=== PATIENT | female | born 1930 | race Caucasian/White ===

== ENCOUNTER 2016-06-26 05:45 | Inpatient (IN) | payer MEDICARE, BC ==
[2016-06-26] MEDS ORDERED: Albuterol/Ipratropium 3.0-0.5 MG/3 ML Neb Soln NEB ONE (05:53)
--- NOTE | 2016-06-26 05:55 | EDM.PDOC ---
<Wili Pinon - Last Filed: 06/26/16 07:41> ED HISTORY OF PRESENT ILLNESS - General Chief Complaint: Respiratory Problem Stated Complaint: [facility] Time Seen by Provider: 06/26/16 05:53 - Related Data Allergies/ADRs: Allergies Allergy/AdvReac Type Severity Reaction Status Date / Time celecoxib [From Celebrex] Allergy Cannot Verified 05/12/16 17:01 Remember lovastatin [From Mevacor] Allergy Cannot Verified 05/12/16 17:01 Remember Penicillins Allergy Cannot Verified 05/12/16 17:01 Remember prednisone Allergy Cannot Verified 05/12/16 17:01 Remember Home Meds: Home Meds Albuterol Sulfate 2.5 mg IH BID PRN 05/12/16 [History] Aspirin [Low Dose Aspirin EC] 81 mg PO DAILY 05/12/16 [History] Calcium Carbonate [Calcium] 500 mg PO DAILY 05/12/16 [History] Fluticasone/Salmeterol [Advair 250-50 Diskus] 1 puff IH ASDIRECTED PRN 05/12/16 [History] Lisinopril 40 mg PO DAILY 05/12/16 [History] Multivitamin [Multi-Vitamin Daily] 1 each PO DAILY 05/12/16 [History] Potassium Chloride 40 meq PO DAILY 05/12/16 [History] Simvastatin [Zocor] 20 mg PO BEDTIME 05/12/16 [History] Triamterene/Hydrochlorothiazid [Triamterene-HCTZ 37.5-25 MG] 0.5 each PO DAILY 05/12/16 [History] Vit A/Vit C/Vit E/Zinc/Copper [Preservision] 1 each PO DAILY 05/12/16 [History] amLODIPine [Norvasc] 2.5 mg PO DAILY 05/12/16 [History] Cyanocobalamin (Vitamin B-12) [Vitamin B-12] 0.5 tab PO DAILY 06/26/16 [History] Course - Vital Signs Last Recorded V/S: Last Vital Signs Temp 37.2 C 06/28/16 03:37 Pulse 78 06/28/16 03:37 Resp 18 06/28/16 03:37 BP 138/64 06/28/16 03:37 Pulse Ox 99 06/28/16 05:00 - Orders/Labs/Meds Orders: Medication Orders Acetaminophen (Tylenol) 650 mg PO Q4H PRN PRN Reason: Pain (Mild 1-3)/fever Acetaminophen/Hydrocodone Bitart ([place] 325-5 Mg) 1 tab PO Q4H PRN PRN Reason: Pain (moderate 4-6) Albuterol (Proventil Neb Soln) 2.5 mg NEB Q4H PRN PRN Reason: Shortness of Breath Albuterol/Ipratropium (Duoneb 3.0-0.5 Mg/3 Ml) 3 ml NEB QIDRT [facility] Last Admin: 06/28/16 05:00 Dose: 3 ml Admin: 06/27/16 20:19 Dose: 3 ml Admin: 06/27/16 16:07 Dose: 3 ml Admin: 06/27/16 09:23 Dose: 3 ml Admin: 06/27/16 06:26 Dose: 3 ml Admin: 06/26/16 20:05 Dose: 3 ml Admin: 06/26/16 15:05 Dose: 3 ml Admin: 06/26/16 10:22 Dose: 3 ml Amlodipine Besylate (Norvasc) 2.5 mg PO DAILY [facility] Last Admin: 06/27/16 09:57 Dose: 2.5 mg Admin: 06/26/16 11:12 Dose: 2.5 mg Aspirin (Halfprin) 81 mg PO DAILY [facility] Last Admin: 06/27/16 09:58 Dose: 81 mg Budesonide (Pulmicort) 0.5 mg NEB BID [facility] Last Admin: 06/27/16 20:19 Dose: 0.5 mg Admin: 06/27/16 09:23 Dose: 0.5 mg Admin: 06/26/16 20:05 Dose: 0.5 mg Admin: 06/26/16 10:22 Dose: 0.5 mg Calcium Carbonate/Glycine (Calcium Carbonate) 600 mg PO DAILY [facility] Last Admin: 06/27/16 09:58 Dose: 600 mg Cyanocobalamin (Vitamin B12) 1,000 mcg PO DAILY [facility] Last Admin: 06/27/16 09:58 Dose: 1,000 mcg Docusate Sodium (Colace) 100 mg PO BID PRN PRN Reason: Constipation Famotidine (Pepcid) 20 mg PO BID [facility] Last Admin: 06/27/16 22:44 Dose: 20 mg Admin: 06/27/16 09:57 Dose: 20 mg Admin: 06/26/16 20:47 Dose: 20 mg Ferrous Sulfate (Ferrous Sulfate) 325 mg PO DAILY [facility] Last Admin: 06/27/16 09:57 Dose: 325 mg Admin: 06/26/16 14:27 Dose: 325 mg Glucose Oxid/Lactoperoxid/Muramidas (Biotene Oralbalance Gel) 0 gm MUCMEM Q4H [facility] Last Admin: 06/28/16 07:01 Dose: Not Given Admin: 06/28/16 02:02 Dose: 1 applic Admin: 06/27/16 22:53 Dose: 1 applic Admin: 06/27/16 17:20 Dose: 1 applic Admin: 06/27/16 13:15 Dose: 1 applic Admin: 06/27/16 10:01 Dose: 1 applic Sodium Chloride (Normal Saline) 1,000 mls @ 75 mls/hr IV ASDIRECTED [facility] Last Admin: 06/28/16 07:00 Dose: 75 mls/hr Infusion: 06/28/16 06:52 Dose: 75 mls/hr Admin: 06/27/16 17:32 Dose: 75 mls/hr Infusion: 06/27/16 17:32 Dose: 75 mls/hr Admin: 06/27/16 04:18 Dose: 75 mls/hr Infusion: 06/27/16 04:18 Dose: 75 mls/hr Admin: 06/26/16 19:18 Dose: 75 mls/hr Infusion: 06/26/16 19:18 Dose: 75 mls/hr Admin: 06/26/16 05:58 Dose: 75 mls/hr Levofloxacin/Dextrose 750 mg/ (Premix) 150 mls @ 100 mls/hr IV Q48H [facility] Last Admin: 06/26/16 11:14 Dose: 100 mls/hr Azithromycin 500 mg/ Sodium (Chloride) 250 mls @ 250 mls/hr IV Q24H [facility] Last Admin: 06/27/16 13:19 Dose: 250 mls/hr Infusion: 06/26/16 13:49 Dose: 250 mls/hr Admin: 06/26/16 12:49 Dose: 250 mls/hr Lisinopril (Prinivil) 40 mg PO DAILY [facility] Last Admin: 06/27/16 09:58 Dose: 40 mg Admin: 06/26/16 12:48 Dose: 40 mg Magnesium Hydroxide (Milk Of Magnesia) 30 ml PO Q12H PRN PRN Reason: Constipation Magnesium Sulfate (Pharmacy To Dose - Magnesium Replacement) 1 dose .XX ASDIRECTED [facility] Methylprednisolone Sodium Succinate (Solu-Medrol) 80 mg IVPUSH Q12H [facility] Last Admin: 06/28/16 01:53 Dose: 80 mg Admin: 06/27/16 13:14 Dose: 80 mg Admin: 06/27/16 00:57 Dose: 80 mg Admin: 06/26/16 12:48 Dose: 80 mg Ondansetron HCl (Zofran Odt) 4 mg PO Q4H PRN PRN Reason: nausea, able to take PO Triamterene/Hydrochlorothiazid 37.5/25 Mg Tab 0 each PO DAILY [facility] Last Admin: 06/27/16 09:59 Dose: 1 each Admin: 06/26/16 12:52 Dose: 1 each Polyethylene Glycol (Miralax) 17 gm PO DAILY PRN PRN Reason: Constipation Potassium Chloride (Klor-Con M20) 40 meq PO DAILY [facility] Last Admin: 06/27/16 09:57 Dose: 40 meq Admin: 06/26/16 12:48 Dose: 40 meq Potassium Chloride (Pharmacy To Dose - Potassium Replacement) 1 dose .XX ASDIRECTED [facility] Saccharomyces Boulardii (Florastor) 250 mg PO BID [facility] Last Admin: 06/27/16 22:44 Dose: 250 mg Admin: 06/27/16 09:56 Dose: 250 mg Admin: 06/26/16 20:47 Dose: 250 mg Simvastatin (Zocor) 20 mg PO BEDTIME [facility] Last Admin: 06/27/16 22:45 Dose: 20 mg Admin: 06/26/16 20:47 Dose: 20 mg Temazepam (Restoril) 15 mg PO BEDTIME PRN PRN Reason: Sleep Tolterodine Tartrate (Detrol) 2 mg PO BID [facility] Last Admin: 06/27/16 22:44 Dose: 2 mg Admin: 06/27/16 09:58 Dose: 2 mg Labs: Laboratory Tests 06/26/16 06/26/16 06/26/16 Range/Units 05:56 06:15 06:15 WBC 4.74 (3.98-10.04) K/mm3 RBC 3.33 L (3.98-5.22) M/mm3 Hgb 10.8 L (11.2-15.7) gm/L Hct 33.7 L (34.1-44.9) % MCV 101.2 H (79.4-94.8) fl MCH 32.4 H (25.6-32.2) pg MCHC 32.0 L (32.2-35.5) g/dl RDW Std Deviation 44.9 (36.4-46.3) fL Plt Count 119 L (182-369) K/mm3 MPV 10.4 (9.4-12.3) fl Neutrophils % (Manual) 48 (40-60) % Band Neutrophils % 1 (0-10) % Lymphocytes % (Manual) 29 (20-40) % Atypical Lymphs % 0 % Monocytes % (Manual) 11 H (2-10) % Eosinophils % (Manual) 11 H (0.7-5.8) % Basophils % (Manual) 0 L (0.1-1.2) Platelet Estimate Adequate Poikilocytosis 1+ slight Anisocytosis 2+ moderate RBC Morph Comment Not Reportable PT (8.0-13.0) SECONDS INR Puncture Site Rt radial ABG pH 7.41 (7.35-7.45) ABG pCO2 51.6 H (35.0-45.0) mmHg ABG pO2 63.0 L (80.0-100.0) mmHg ABG HCO3 31.9 H (22.0-26.0) meq/L ABG O2 Saturation 91.7 L (96.0-97.0) % ABG Base Excess 6.6 H (-2-2.0) Navdeep Test Positive A-a Gradient 61 mmHg O2 Delivery Device Nasal cannula Oxygen Flow Rate 2.0 FiO2 28.00 (21.00-100.00) % Sodium 131 L (136-145) mEq/L Potassium 4.2 (3.5-5.1) mEq/L Chloride 94 L (98-107) mEq/L Carbon Dioxide 30 (21-32) mEq/L Anion Gap 11.2 (5-15) BUN 16 (7-18) mg/dL Creatinine 0.9 (0.55-1.02) mg/dL Est Cr Clr Drug Dosing 32.40 mL/min Estimated GFR (MDRD) 60 (>60) mL/min BUN/Creatinine Ratio 17.8 (14-18) Glucose 110 (83-115) mg/dL Calcium 9.4 (8.5-10.1) mg/dL Magnesium 1.7 L (1.8-2.4) mg/dl Total Bilirubin 0.3 (0.2-1.0) mg/dL AST 30 (15-37) U/L ALT 20 (14-59) U/L Alkaline Phosphatase 67 (46-116) U/L CK-MB (CK-2) 2.6 (0-3.6) ng/ml Troponin I < 0.017 (0.00-0.056) ng/mL C-Reactive Protein < 0.2 (<1.0) mg/dL B-Natriuretic Peptide (0-100) pg/mL Total Protein 7.2 (6.4-8.2) g/dl Albumin 3.8 (3.4-5.0) g/dl Globulin 3.4 gm/dL Albumin/Globulin Ratio 1.1 (1-2) Urine Color (Yellow) Urine Appearance (Clear) Urine pH (5.0-8.0) Ur Specific [place] (1.005-1.030) Urine Protein (Negative) Urine Glucose (UA) (Negative) Urine Ketones (Negative) Urine Occult Blood (Negative) Urine Nitrite (Negative) Urine Bilirubin (Negative) Urine Urobilinogen (0.2-1.0) Ur Leukocyte Esterase (Negative) Urine RBC (0-5) /hpf Urine WBC (0-5) /hpf Ur Squamous Epith Cells (0-5) /hpf Amorphous Sediment (NOT SEEN) /hpf Urine Bacteria (FEW) /hpf Urine Mucus (FEW) /hpf 06/26/16 06/26/16 06/26/16 Range/Units 06:15 06:27 07:25 WBC (3.98-10.04) K/mm3 RBC (3.98-5.22) M/mm3 Hgb (11.2-15.7) gm/L Hct (34.1-44.9) % MCV (79.4-94.8) fl MCH (25.6-32.2) pg MCHC (32.2-35.5) g/dl RDW Std Deviation (36.4-46.3) fL Plt Count (182-369) K/mm3 MPV (9.4-12.3) fl Neutrophils % (Manual) (40-60) % Band Neutrophils % (0-10) % Lymphocytes % (Manual) (20-40) % Atypical Lymphs % % Monocytes % (Manual) (2-10) % Eosinophils % (Manual) (0.7-5.8) % Basophils % (Manual) (0.1-1.2) Platelet Estimate Poikilocytosis Anisocytosis RBC Morph Comment PT 10.7 (8.0-13.0) SECONDS INR 0.98 Puncture Site ABG pH (7.35-7.45) ABG pCO2 (35.0-45.0) mmHg ABG pO2 (80.0-100.0) mmHg ABG HCO3 (22.0-26.0) meq/L ABG O2 Saturation (96.0-97.0) % ABG Base Excess (-2-2.0) Navdeep Test A-a Gradient mmHg O2 Delivery Device Oxygen Flow Rate FiO2 (21.00-100.00) % Sodium (136-145) mEq/L Potassium (3.5-5.1) mEq/L Chloride (98-107) mEq/L Carbon Dioxide (21-32) mEq/L Anion Gap (5-15) BUN (7-18) mg/dL Creatinine (0.55-1.02) mg/dL Est Cr Clr Drug Dosing mL/min Estimated GFR (MDRD) (>60) mL/min BUN/Creatinine Ratio (14-18) Glucose (83-115) mg/dL Calcium (8.5-10.1) mg/dL Magnesium (1.8-2.4) mg/dl Total Bilirubin (0.2-1.0) mg/dL AST (15-37) U/L ALT (14-59) U/L Alkaline Phosphatase (46-116) U/L CK-MB (CK-2) (0-3.6) ng/ml Troponin I (0.00-0.056) ng/mL C-Reactive Protein (<1.0) mg/dL B-Natriuretic Peptide 79 (0-100) pg/mL Total Protein (6.4-8.2) g/dl Albumin (3.4-5.0) g/dl Globulin gm/dL Albumin/Globulin Ratio (1-2) Urine Color Light yellow (Yellow) Urine Appearance Clear (Clear) Urine pH 7.0 (5.0-8.0) Ur Specific [place] 1.025 (1.005-1.030) Urine Protein 2+ H (Negative) Urine Glucose (UA) Negative (Negative) Urine Ketones Negative (Negative) Urine Occult Blood Negative (Negative) Urine Nitrite Negative (Negative) Urine Bilirubin Negative (Negative) Urine Urobilinogen 0.2 (0.2-1.0) Ur Leukocyte Esterase Trace H (Negative) Urine RBC 0-5 (0-5) /hpf Urine WBC 5-10 H (0-5) /hpf Ur Squamous Epith Cells 0-5 (0-5) /hpf Amorphous Sediment Few H (NOT SEEN) /hpf Urine Bacteria Few (FEW) /hpf Urine Mucus Not seen (FEW) /hpf Meds: Medications Generic Name Dose Route Start Last Admin Trade Name Freq PRN Reason Stop Dose Admin Acetaminophen 650 mg 06/26/16 08:02 Tylenol PO Q4H PRN Pain (Mild 1-3)/fever Acetaminophen/Hydrocodone Bitart 1 tab 06/26/16 08:02 [place] 325-5 Mg PO Q4H PRN Pain (moderate 4-6) Albuterol 2.5 mg 06/27/16 08:47 Proventil Neb Soln NEB Q4H PRN Shortness of Breath Albuterol/Ipratropium 3 ml 06/26/16 10:00 06/28/16 05:00 Duoneb 3.0-0.5 Mg/3 Ml NEB 3 ml QIDRT [facility] Administration Amlodipine Besylate 2.5 mg 06/26/16 11:00 06/27/16 09:57 Norvasc PO 2.5 mg DAILY [facility] Administration Aspirin 81 mg 06/27/16 09:00 06/27/16 09:58 Halfprin PO 81 mg DAILY [facility] Administration Budesonide 0.5 mg 06/26/16 09:00 06/27/16 20:19 Pulmicort NEB 0.5 mg BID [facility] Administration Calcium Carbonate/Glycine 600 mg 06/27/16 09:00 06/27/16 09:58 Calcium Carbonate PO 600 mg DAILY [facility] Administration Cyanocobalamin 1,000 mcg 06/27/16 09:00 06/27/16 09:58 Vitamin B12 PO 1,000 mcg DAILY [facility] Administration Docusate Sodium 100 mg 06/26/16 08:02 Colace PO BID PRN Constipation Famotidine 20 mg 06/26/16 21:00 06/27/16 22:44 Pepcid PO 20 mg BID [facility] Administration Ferrous Sulfate 325 mg 06/26/16 13:45 06/27/16 09:57 Ferrous Sulfate PO 325 mg DAILY [facility] Administration Glucose Oxid/Lactoperoxid/Muramidas 0 gm 06/27/16 09:00 06/28/16 07:01 Biotene Oralbalance Gel MUCMEM Not Given Q4H [facility] Sodium Chloride 1,000 mls @ 75 mls/hr 06/26/16 06:00 06/28/16 07:00 Normal Saline IV 75 mls/hr ASDIRECTED [facility] Administration Levofloxacin/Dextrose 750 mg/ 150 mls @ 100 mls/hr 06/26/16 11:00 06/26/16 11 :14 Premix IV 100 mls/hr Q48H [facility] Administration Azithromycin 500 mg/ Sodium 250 mls @ 250 mls/hr 06/26/16 12:30 06/27/16 13: 19 Chloride IV 250 mls/hr Q24H [facility] Administration Lisinopril 40 mg 06/26/16 11:00 06/27/16 09:58 Prinivil PO 40 mg DAILY [facility] Administration Magnesium Hydroxide 30 ml 06/26/16 08:02 Milk Of Magnesia PO Q12H PRN Constipation Magnesium Sulfate 1 dose 06/26/16 14:45 Pharmacy To Dose - Magnesium Replacement .XX ASDIRECTED [facility] Methylprednisolone Sodium Succinate 80 mg 06/26/16 12:30 06/28/16 01:53 Solu-Medrol IVPUSH 80 mg Q12H [facility] Administration Ondansetron HCl 4 mg 06/26/16 08:02 Zofran Odt PO Q4H PRN nausea, able to take PO Triamterene/ 0 each 06/26/16 11:00 06/27/16 09:59 Hydrochlorothiazid PO 1 each 37.5/25 Mg Tab DAILY [facility] Administration Polyethylene Glycol 17 gm 06/26/16 08:02 Miralax PO DAILY PRN Constipation Potassium Chloride 40 meq 06/26/16 11:00 06/27/16 09:57 Klor-Con M20 PO 40 meq DAILY [facility] Administration Potassium Chloride 1 dose 06/26/16 14:45 Pharmacy To Dose - Potassium Replacement .XX ASDIRECTED [facility] Saccharomyces Boulardii 250 mg 06/26/16 21:00 06/27/16 22:44 Florastor PO 250 mg BID [facility] Administration Simvastatin 20 mg 06/26/16 21:00 06/27/16 22:45 Zocor PO 20 mg BEDTIME [facility] Administration Temazepam 15 mg 06/26/16 08:02 Restoril PO BEDTIME PRN Sleep Tolterodine Tartrate 2 mg 06/27/16 09:00 06/27/16 22:44 Detrol PO 2 mg BID [facility] Administration Discontinued Medications Generic Name Dose Route Start Last Admin Trade Name Freq PRN Reason Stop Dose Admin Albuterol 7.5 mg 06/26/16 06:36 06/26/16 07:05 Proventil NEB 06/26/16 06:37 Not Given ONETIME ONE Albuterol/Ipratropium 3 ml 06/26/16 05:53 06/26/16 06:04 Duoneb 3.0-0.5 Mg/3 Ml NEB 06/26/16 05:54 3 ml ONETIME ONE Administration Albuterol/Ipratropium 3 ml 06/26/16 08:00 06/26/16 08:51 Duoneb 3.0-0.5 Mg/3 Ml NEB Not Given Q4H [facility] Sodium Chloride 250 mls @ 999 mls/hr 06/26/16 11:00 06/26/16 16:14 Normal Saline IV 06/27/16 11:16 999 mls/hr ASDIRECTED [facility] Administration Magnesium Sulfate 2 gm/ Premix 50 mls @ 25 mls/hr 06/26/16 14:42 06/26/16 16: 05 IV 06/26/16 16:41 25 mls/hr ONETIME ONE Administration Iopamidol 60 ml 06/26/16 11:02 06/26/16 11:51 Isovue-300 (61%) IVPUSH 06/26/16 11:03 Not Given ONETIME ONE Iopamidol 60 ml 06/26/16 11:03 06/26/16 14:40 Isovue-370 (76%) IVPUSH 06/26/16 11:04 60 ml ONETIME ONE Administration Sodium Chloride 10 ml 06/26/16 11:02 06/26/16 14:41 Saline Flush FLUSH 06/26/16 11:03 10 ml ONETIME ONE Administration - Re-Assessments/Exams Free Text/Narrative Re-Assessment/Exam: 06/26/16 07:41 Dr García accepted the patient and TRACY Mcdonnell came to see the patient and start the admission. Departure - Departure Time of Disposition: 07:50 Disposition: Admitted As Inpatient 66 Condition: poor Clinical Impression: Acute exacerbation of chronic obstructive pulmonary disease (COPD), Hyponatremia, Hypoxia <Abhijeet Dumont - Last Filed: 06/28/16 07:07> ED HISTORY OF PRESENT ILLNESS - General Source of Information: Reports: Patient, EMS, EMS notes reviewed History Limitations: Reports: No limitations - History of Present Illness INITIAL COMMENTS - FREE TEXT/NARRATIVE: 85-year-old female arrives in the ED per [place] [facility] were summoned to her home do to increasing troubles breathing. Patient has known right sided lung cancer with last chemotherapy given in January of 2016. On last review May 12 of this year was felt she had recurrence of right-sided lung cancer. He has had followup with oncology. She reports gradually increasing dyspnea with wheeze over the last week to 10 days. She this limits her mobility extremely. She spends most the time in an easy chair. She is oxygen dependent at 2.5-3 liters per minute at all times. Has a cough but not bringing up any phlegm. No associated fever or chills. Para medics relate O2 sats was 76% on arrival.she was sitting at the door dressed waiting for them. She was not on oxygen at that time. She was placed on a nonrebreather mask for a period of time. She was given IV Solu-Medrol 125 mg en route and received DuoNeb treatment. She has a nebulizer that she uses twice daily at home. Is not sure persist albuterol or DuoNeb that she uses. Appetite remains poor and she continues to lose weight. Has a Port-A-Cath left upper anterior chest. Has marked kyphosis of the thoracic spine with a restrictive lung component to her disease process as well as severe COPD. On initial assessment she is able to provide history in 3 or 4 word sentances at atime. Symptom Onset Date: 06/19/16 (usually worsening dyspnea and shortness of breath over the last week or 10 days.) Timing/Duration: Reports: Day(s):, Getting worse Severity: moderate Location, General: Reports: chest (short of breath with wheezing and cough. Worsens on minimal exertion.), generalized (underlying severe weakness.) Quality: Reports: Other (dyspnea with wheezing.) Improves with: Reports: Medication (she thinks that the nebulizer possibly help a little bit.), Other (she is on oxygen 2.5 liters continuously.) Worsens with: Reports: Movement Context, General: Denies: Activity, Exercise, Lifting, Sick contact, Trauma, Other Associated Symptoms (General): Reports: cough, loss of appetite, malaise, shortness of breath, weakness, other (has very poor appetite. Feels fall that time. This is likely due to aerophagia since she works hard to breathe.). 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: Hematologic History: Reports: Anemia, B12 deficiency Oncologic (Cancer) History: Reports: Lung - Infectious Disease History Infectious Disease History: Reports: Chicken pox, Measles, Mumps - Past Surgical History HEENT Surgical History: Reports: Tonsillectomy GI Surgical History: Reports: Cholecystectomy, Colonoscopy, EGD Female Surgical History: Reports: Hysterectomy Social & Family History - Tobacco Use Smoking Status *Q: Former Smoker Years of Tobacco use: 69 Packs/Tins Daily: 0.5 - Caffeine Use Caffeine Use: Reports: Coffee - Alcohol Use Days Per Week of Alcohol Use: 7 Number of Drinks Per Day: 1 Total Drinks Per Week: 7 - Recreational Drug Use Recreational Drug Use: No - Living Situation & Occupation Living situation: Reports: Occupation: retired ED ROS GENERAL - Review of Systems Review Of Systems: See Below Constitutional: Reports: malaise, weakness, fatigue, decreased appetite, weight loss. Denies: fever, chills, night sweats, diaphoresis HEENT: Reports: Glasses, Other (dry throat) Respiratory: Reports: shortness of breath, wheezing (chronicchronic), cough ( cough without much sputum production.), sputum. Denies: pleuritic chest pain, other Cardiovascular: Reports: Blood pressure problem, Dyspnea on exertion ( chronically), Lightheadedness (occasionally), Orthopnea. Denies: Chest pain, Claudication (chronic hypertension), Edema, Palpitations, PND Endocrine: Reports: fatigue GI/Abdominal: Reports: Decreased appetite. Denies: Abdominal pain, Constipation , Nausea, Vomiting : Reports: frequency, incontinence (with both urge and stress component.), urgency, other (reports she's up to the washroom about every 45-90 minutes all night long.) Musculoskeletal: Reports: neck pain, shoulder pain, back pain, joint pain ( knees and hips as well.) Skin: Reports: bruising (is is easily.) Neurological: Reports: dizziness, difficulty walking, weakness. Denies: headache (occasionally), numbness, seizure, syncope, tingling, tremors, trouble speaking (22 legs to hardly old holding her up and shortness of breath.), change in speech, gait disturbance Psychiatric: Reports: No symptoms Hematologic/Lymphatic: Reports: anemia ED EXAM, GENERAL - Physical Exam Exam: See Below Exam Limited By: Respiratory distress (speaks in only 1-3 word sentences. Audible he wheezing.) General Appearance: moderate distress, cachetic (has lost a lot of weight since I seen her last 6 weeks ago. All ribs are easily visible.) Eye Exam: bilateral eye: normal inspection (no jaundice.) Throat/Mouth: Other Head: atraumatic (tongue is dry and coated. No oral mucosal lesions.), normocephalic Neck: normal inspection, tender midline (no supraclavicular or infraclavicular adenopathy noted.), other. No: full range of motion, carotid bruit (throughout the mid and lower cervical spine.), lymphadenopathy (L), lymphadenopathy (R) Respiratory/Chest: respiratory distress (marked tachypnea at rest 24-26 per minute.), decreased breath sounds (diminished breath sounds to the posterior 25 % the lung diop.), rhonchi ([place] anterior lobes bilaterally.), wheezing ( Bolognese in throughout all lung diop.), accessory muscle use (mild to moderate.) Cardiovascular: regular rate, rhythm, no edema, no gallop, no murmur, no rub, other (note heart sounds are difficult to hear tutus generalized audible wheezing.). No: normal peripheral pulses Peripheral Pulses: 1+: posterior tibial (L), posterior tibial (R), dorsalis pedis (L), dorsalis pedis (R) GI/Abdominal: normal bowel sounds, soft, distended (tendon in the upper abdomen with tympany to percussion compatible with aerophagia. No masses palpable) Back Exam: decreased range of motion, vertebral tenderness (throughout the lumbar spine.), other (moderate kyphosis thoracic spine contributing to restrictive lung disease). No: full range of motion, CVA tenderness (L), CVA tenderness (R) Extremities: no pedal edema, slow capillary refill, other (marked wasting of the lower chest remedied musculature.). No: pedal edema, leg pain Neurological: alert, no motor/sensory deficits (moves all limbs.), confused ( used to be a little confused at times. May be height 22 hypercapnia.). 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 Q waves leads 3 and aVF compatible with old inferior wall myocardial infarction.) ST-T: normal QT: prolonged (family prolonged period) Comparison: no change Course - Vital Signs Last Recorded V/S: Last Vital Signs Temp 37.2 C 06/28/16 03:37 Pulse 78 06/28/16 03:37 Resp 18 06/28/16 03:37 BP 138/64 06/28/16 03:37 Pulse Ox 99 06/28/16 05:00 - Orders/Labs/Meds Orders: Medication Orders Acetaminophen (Tylenol) 650 mg PO Q4H PRN PRN Reason: Pain (Mild 1-3)/fever Acetaminophen/Hydrocodone Bitart ([place] 325-5 Mg) 1 tab PO Q4H PRN PRN Reason: Pain (moderate 4-6) Albuterol (Proventil Neb Soln) 2.5 mg NEB Q4H PRN PRN Reason: Shortness of Breath Albuterol/Ipratropium (Duoneb 3.0-0.5 Mg/3 Ml) 3 ml NEB QIDRT [facility] Last Admin: 06/28/16 05:00 Dose: 3 ml Admin: 06/27/16 20:19 Dose: 3 ml Admin: 06/27/16 16:07 Dose: 3 ml Admin: 06/27/16 09:23 Dose: 3 ml Admin: 06/27/16 06:26 Dose: 3 ml Admin: 06/26/16 20:05 Dose: 3 ml Admin: 06/26/16 15:05 Dose: 3 ml Admin: 06/26/16 10:22 Dose: 3 ml Amlodipine Besylate (Norvasc) 2.5 mg PO DAILY [facility] Last Admin: 06/27/16 09:57 Dose: 2.5 mg Admin: 06/26/16 11:12 Dose: 2.5 mg Aspirin (Halfprin) 81 mg PO DAILY [facility] Last Admin: 06/27/16 09:58 Dose: 81 mg Budesonide (Pulmicort) 0.5 mg NEB BID [facility] Last Admin: 06/27/16 20:19 Dose: 0.5 mg Admin: 06/27/16 09:23 Dose: 0.5 mg Admin: 06/26/16 20:05 Dose: 0.5 mg Admin: 06/26/16 10:22 Dose: 0.5 mg Calcium Carbonate/Glycine (Calcium Carbonate) 600 mg PO DAILY [facility] Last Admin: 06/27/16 09:58 Dose: 600 mg Cyanocobalamin (Vitamin B12) 1,000 mcg PO DAILY [facility] Last Admin: 06/27/16 09:58 Dose: 1,000 mcg Docusate Sodium (Colace) 100 mg PO BID PRN PRN Reason: Constipation Famotidine (Pepcid) 20 mg PO BID [facility] Last Admin: 06/27/16 22:44 Dose: 20 mg Admin: 06/27/16 09:57 Dose: 20 mg Admin: 06/26/16 20:47 Dose: 20 mg Ferrous Sulfate (Ferrous Sulfate) 325 mg PO DAILY [facility] Last Admin: 06/27/16 09:57 Dose: 325 mg Admin: 06/26/16 14:27 Dose: 325 mg Glucose Oxid/Lactoperoxid/Muramidas (Biotene Oralbalance Gel) 0 gm MUCMEM Q4H [facility] Last Admin: 06/28/16 07:01 Dose: Not Given Admin: 06/28/16 02:02 Dose: 1 applic Admin: 06/27/16 22:53 Dose: 1 applic Admin: 06/27/16 17:20 Dose: 1 applic Admin: 06/27/16 13:15 Dose: 1 applic Admin: 06/27/16 10:01 Dose: 1 applic Sodium Chloride (Normal Saline) 1,000 mls @ 75 mls/hr IV ASDIRECTED [facility] Last Admin: 06/28/16 07:00 Dose: 75 mls/hr Infusion: 06/28/16 06:52 Dose: 75 mls/hr Admin: 06/27/16 17:32 Dose: 75 mls/hr Infusion: 06/27/16 17:32 Dose: 75 mls/hr Admin: 06/27/16 04:18 Dose: 75 mls/hr Infusion: 06/27/16 04:18 Dose: 75 mls/hr Admin: 06/26/16 19:18 Dose: 75 mls/hr Infusion: 06/26/16 19:18 Dose: 75 mls/hr Admin: 06/26/16 05:58 Dose: 75 mls/hr Levofloxacin/Dextrose 750 mg/ (Premix) 150 mls @ 100 mls/hr IV Q48H [facility] Last Admin: 06/26/16 11:14 Dose: 100 mls/hr Azithromycin 500 mg/ Sodium (Chloride) 250 mls @ 250 mls/hr IV Q24H [facility] Last Admin: 06/27/16 13:19 Dose: 250 mls/hr Infusion: 06/26/16 13:49 Dose: 250 mls/hr Admin: 06/26/16 12:49 Dose: 250 mls/hr Lisinopril (Prinivil) 40 mg PO DAILY [facility] Last Admin: 06/27/16 09:58 Dose: 40 mg Admin: 06/26/16 12:48 Dose: 40 mg Magnesium Hydroxide (Milk Of Magnesia) 30 ml PO Q12H PRN PRN Reason: Constipation Magnesium Sulfate (Pharmacy To Dose - Magnesium Replacement) 1 dose .XX ASDIRECTED [facility] Methylprednisolone Sodium Succinate (Solu-Medrol) 80 mg IVPUSH Q12H [facility] Last Admin: 06/28/16 01:53 Dose: 80 mg Admin: 06/27/16 13:14 Dose: 80 mg Admin: 06/27/16 00:57 Dose: 80 mg Admin: 06/26/16 12:48 Dose: 80 mg Ondansetron HCl (Zofran Odt) 4 mg PO Q4H PRN PRN Reason: nausea, able to take PO Triamterene/Hydrochlorothiazid 37.5/25 Mg Tab 0 each PO DAILY [facility] Last Admin: 06/27/16 09:59 Dose: 1 each Admin: 06/26/16 12:52 Dose: 1 each Polyethylene Glycol (Miralax) 17 gm PO DAILY PRN PRN Reason: Constipation Potassium Chloride (Klor-Con M20) 40 meq PO DAILY [facility] Last Admin: 06/27/16 09:57 Dose: 40 meq Admin: 06/26/16 12:48 Dose: 40 meq Potassium Chloride (Pharmacy To Dose - Potassium Replacement) 1 dose .XX ASDIRECTED [facility] Saccharomyces Boulardii (Florastor) 250 mg PO BID [facility] Last Admin: 06/27/16 22:44 Dose: 250 mg Admin: 06/27/16 09:56 Dose: 250 mg Admin: 06/26/16 20:47 Dose: 250 mg Simvastatin (Zocor) 20 mg PO BEDTIME [facility] Last Admin: 06/27/16 22:45 Dose: 20 mg Admin: 06/26/16 20:47 Dose: 20 mg Temazepam (Restoril) 15 mg PO BEDTIME PRN PRN Reason: Sleep Tolterodine Tartrate (Detrol) 2 mg PO BID [facility] Last Admin: 06/27/16 22:44 Dose: 2 mg Admin: 06/27/16 09:58 Dose: 2 mg Labs: Laboratory Tests 06/26/16 06/26/16 06/26/16 Range/Units 05:56 06:15 06:15 WBC 4.74 (3.98-10.04) K/mm3 RBC 3.33 L (3.98-5.22) M/mm3 Hgb 10.8 L (11.2-15.7) gm/L Hct 33.7 L (34.1-44.9) % MCV 101.2 H (79.4-94.8) fl MCH 32.4 H (25.6-32.2) pg MCHC 32.0 L (32.2-35.5) g/dl RDW Std Deviation 44.9 (36.4-46.3) fL Plt Count 119 L (182-369) K/mm3 MPV 10.4 (9.4-12.3) fl Neutrophils % (Manual) 48 (40-60) % Band Neutrophils % 1 (0-10) % Lymphocytes % (Manual) 29 (20-40) % Atypical Lymphs % 0 % Monocytes % (Manual) 11 H (2-10) % Eosinophils % (Manual) 11 H (0.7-5.8) % Basophils % (Manual) 0 L (0.1-1.2) Platelet Estimate Adequate Poikilocytosis 1+ slight Anisocytosis 2+ moderate RBC Morph Comment Not Reportable PT (8.0-13.0) SECONDS INR Puncture Site Rt radial ABG pH 7.41 (7.35-7.45) ABG pCO2 51.6 H (35.0-45.0) mmHg ABG pO2 63.0 L (80.0-100.0) mmHg ABG HCO3 31.9 H (22.0-26.0) meq/L ABG O2 Saturation 91.7 L (96.0-97.0) % ABG Base Excess 6.6 H (-2-2.0) Navdeep Test Positive A-a Gradient 61 mmHg O2 Delivery Device Nasal cannula Oxygen Flow Rate 2.0 FiO2 28.00 (21.00-100.00) % Sodium 131 L (136-145) mEq/L Potassium 4.2 (3.5-5.1) mEq/L Chloride 94 L (98-107) mEq/L Carbon Dioxide 30 (21-32) mEq/L Anion Gap 11.2 (5-15) BUN 16 (7-18) mg/dL Creatinine 0.9 (0.55-1.02) mg/dL Est Cr Clr Drug Dosing 32.40 mL/min Estimated GFR (MDRD) 60 (>60) mL/min BUN/Creatinine Ratio 17.8 (14-18) Glucose 110 (83-115) mg/dL Calcium 9.4 (8.5-10.1) mg/dL Magnesium 1.7 L (1.8-2.4) mg/dl Total Bilirubin 0.3 (0.2-1.0) mg/dL AST 30 (15-37) U/L ALT 20 (14-59) U/L Alkaline Phosphatase 67 (46-116) U/L CK-MB (CK-2) 2.6 (0-3.6) ng/ml Troponin I < 0.017 (0.00-0.056) ng/mL C-Reactive Protein < 0.2 (<1.0) mg/dL B-Natriuretic Peptide (0-100) pg/mL Total Protein 7.2 (6.4-8.2) g/dl Albumin 3.8 (3.4-5.0) g/dl Globulin 3.4 gm/dL Albumin/Globulin Ratio 1.1 (1-2) Urine Color (Yellow) Urine Appearance (Clear) Urine pH (5.0-8.0) Ur Specific [place] (1.005-1.030) Urine Protein (Negative) Urine Glucose (UA) (Negative) Urine Ketones (Negative) Urine Occult Blood (Negative) Urine Nitrite (Negative) Urine Bilirubin (Negative) Urine Urobilinogen (0.2-1.0) Ur Leukocyte Esterase (Negative) Urine RBC (0-5) /hpf Urine WBC (0-5) /hpf Ur Squamous Epith Cells (0-5) /hpf Amorphous Sediment (NOT SEEN) /hpf Urine Bacteria (FEW) /hpf Urine Mucus (FEW) /hpf 06/26/16 06/26/16 06/26/16 Range/Units 06:15 06:27 07:25 WBC (3.98-10.04) K/mm3 RBC (3.98-5.22) M/mm3 Hgb (11.2-15.7) gm/L Hct (34.1-44.9) % MCV (79.4-94.8) fl MCH (25.6-32.2) pg MCHC (32.2-35.5) g/dl RDW Std Deviation (36.4-46.3) fL Plt Count (182-369) K/mm3 MPV (9.4-12.3) fl Neutrophils % (Manual) (40-60) % Band Neutrophils % (0-10) % Lymphocytes % (Manual) (20-40) % Atypical Lymphs % % Monocytes % (Manual) (2-10) % Eosinophils % (Manual) (0.7-5.8) % Basophils % (Manual) (0.1-1.2) Platelet Estimate Poikilocytosis Anisocytosis RBC Morph Comment PT 10.7 (8.0-13.0) SECONDS INR 0.98 Puncture Site ABG pH (7.35-7.45) ABG pCO2 (35.0-45.0) mmHg ABG pO2 (80.0-100.0) mmHg ABG HCO3 (22.0-26.0) meq/L ABG O2 Saturation (96.0-97.0) % ABG Base Excess (-2-2.0) Navdeep Test A-a Gradient mmHg O2 Delivery Device Oxygen Flow Rate FiO2 (21.00-100.00) % Sodium (136-145) mEq/L Potassium (3.5-5.1) mEq/L Chloride (98-107) mEq/L Carbon Dioxide (21-32) mEq/L Anion Gap (5-15) BUN (7-18) mg/dL Creatinine (0.55-1.02) mg/dL Est Cr Clr Drug Dosing mL/min Estimated GFR (MDRD) (>60) mL/min BUN/Creatinine Ratio (14-18) Glucose (83-115) mg/dL Calcium (8.5-10.1) mg/dL Magnesium (1.8-2.4) mg/dl Total Bilirubin (0.2-1.0) mg/dL AST (15-37) U/L ALT (14-59) U/L Alkaline Phosphatase (46-116) U/L CK-MB (CK-2) (0-3.6) ng/ml Troponin I (0.00-0.056) ng/mL C-Reactive Protein (<1.0) mg/dL B-Natriuretic Peptide 79 (0-100) pg/mL Total Protein (6.4-8.2) g/dl Albumin (3.4-5.0) g/dl Globulin gm/dL Albumin/Globulin Ratio (1-2) Urine Color Light yellow (Yellow) Urine Appearance Clear (Clear) Urine pH 7.0 (5.0-8.0) Ur Specific [place] 1.025 (1.005-1.030) Urine Protein 2+ H (Negative) Urine Glucose (UA) Negative (Negative) Urine Ketones Negative (Negative) Urine Occult Blood Negative (Negative) Urine Nitrite Negative (Negative) Urine Bilirubin Negative (Negative) Urine Urobilinogen 0.2 (0.2-1.0) Ur Leukocyte Esterase Trace H (Negative) Urine RBC 0-5 (0-5) /hpf Urine WBC 5-10 H (0-5) /hpf Ur Squamous Epith Cells 0-5 (0-5) /hpf Amorphous Sediment Few H (NOT SEEN) /hpf Urine Bacteria Few (FEW) /hpf Urine Mucus Not seen (FEW) /hpf Meds: Medications Generic Name Dose Route Start Last Admin Trade Name Freq PRN Reason Stop Dose Admin Acetaminophen 650 mg 06/26/16 08:02 Tylenol PO Q4H PRN Pain (Mild 1-3)/fever Acetaminophen/Hydrocodone Bitart 1 tab 06/26/16 08:02 [place] 325-5 Mg PO Q4H PRN Pain (moderate 4-6) Albuterol 2.5 mg 06/27/16 08:47 Proventil Neb Soln NEB Q4H PRN Shortness of Breath Albuterol/Ipratropium 3 ml 06/26/16 10:00 06/28/16 05:00 Duoneb 3.0-0.5 Mg/3 Ml NEB 3 ml QIDRT [facility] Administration Amlodipine Besylate 2.5 mg 06/26/16 11:00 06/27/16 09:57 Norvasc PO 2.5 mg DAILY [facility] Administration Aspirin 81 mg 06/27/16 09:00 06/27/16 09:58 Halfprin PO 81 mg DAILY [facility] Administration Budesonide 0.5 mg 06/26/16 09:00 06/27/16 20:19 Pulmicort NEB 0.5 mg BID [facility] Administration Calcium Carbonate/Glycine 600 mg 06/27/16 09:00 06/27/16 09:58 Calcium Carbonate PO 600 mg DAILY [facility] Administration Cyanocobalamin 1,000 mcg 06/27/16 09:00 06/27/16 09:58 Vitamin B12 PO 1,000 mcg DAILY [facility] Administration Docusate Sodium 100 mg 06/26/16 08:02 Colace PO BID PRN Constipation Famotidine 20 mg 06/26/16 21:00 06/27/16 22:44 Pepcid PO 20 mg BID [facility] Administration Ferrous Sulfate 325 mg 06/26/16 13:45 06/27/16 09:57 Ferrous Sulfate PO 325 mg DAILY [facility] Administration Glucose Oxid/Lactoperoxid/Muramidas 0 gm 06/27/16 09:00 06/28/16 07:01 Biotene Oralbalance Gel MUCMEM Not Given Q4H [facility] Sodium Chloride 1,000 mls @ 75 mls/hr 06/26/16 06:00 06/28/16 07:00 Normal Saline IV 75 mls/hr ASDIRECTED [facility] Administration Levofloxacin/Dextrose 750 mg/ 150 mls @ 100 mls/hr 06/26/16 11:00 06/26/16 11 :14 Premix IV 100 mls/hr Q48H [facility] Administration Azithromycin 500 mg/ Sodium 250 mls @ 250 mls/hr 06/26/16 12:30 06/27/16 13: 19 Chloride IV 250 mls/hr Q24H [facility] Administration Lisinopril 40 mg 06/26/16 11:00 06/27/16 09:58 Prinivil PO 40 mg DAILY [facility] Administration Magnesium Hydroxide 30 ml 06/26/16 08:02 Milk Of Magnesia PO Q12H PRN Constipation Magnesium Sulfate 1 dose 06/26/16 14:45 Pharmacy To Dose - Magnesium Replacement .XX ASDIRECTED [facility] Methylprednisolone Sodium Succinate 80 mg 06/26/16 12:30 06/28/16 01:53 Solu-Medrol IVPUSH 80 mg Q12H [facility] Administration Ondansetron HCl 4 mg 06/26/16 08:02 Zofran Odt PO Q4H PRN nausea, able to take PO Triamterene/ 0 each 06/26/16 11:00 06/27/16 09:59 Hydrochlorothiazid PO 1 each 37.5/25 Mg Tab DAILY [facility] Administration Polyethylene Glycol 17 gm 06/26/16 08:02 Miralax PO DAILY PRN Constipation Potassium Chloride 40 meq 06/26/16 11:00 06/27/16 09:57 Klor-Con M20 PO 40 meq DAILY [facility] Administration Potassium Chloride 1 dose 06/26/16 14:45 Pharmacy To Dose - Potassium Replacement .XX ASDIRECTED [facility] Saccharomyces Boulardii 250 mg 06/26/16 21:00 06/27/16 22:44 Florastor PO 250 mg BID [facility] Administration Simvastatin 20 mg 06/26/16 21:00 06/27/16 22:45 Zocor PO 20 mg BEDTIME [facility] Administration Temazepam 15 mg 06/26/16 08:02 Restoril PO BEDTIME PRN Sleep Tolterodine Tartrate 2 mg 06/27/16 09:00 06/27/16 22:44 Detrol PO 2 mg BID [facility] Administration Discontinued Medications Generic Name Dose Route Start Last Admin Trade Name Freq PRN Reason Stop Dose Admin Albuterol 7.5 mg 06/26/16 06:36 06/26/16 07:05 Proventil NEB 06/26/16 06:37 Not Given ONETIME ONE Albuterol/Ipratropium 3 ml 06/26/16 05:53 06/26/16 06:04 Duoneb 3.0-0.5 Mg/3 Ml NEB 06/26/16 05:54 3 ml ONETIME ONE Administration Albuterol/Ipratropium 3 ml 06/26/16 08:00 06/26/16 08:51 Duoneb 3.0-0.5 Mg/3 Ml NEB Not Given Q4H [facility] Sodium Chloride 250 mls @ 999 mls/hr 06/26/16 11:00 06/26/16 16:14 Normal Saline IV 06/27/16 11:16 999 mls/hr ASDIRECTED [facility] Administration Magnesium Sulfate 2 gm/ Premix 50 mls @ 25 mls/hr 06/26/16 14:42 06/26/16 16: 05 IV 06/26/16 16:41 25 mls/hr ONETIME ONE Administration Iopamidol 60 ml 06/26/16 11:02 06/26/16 11:51 Isovue-300 (61%) IVPUSH 06/26/16 11:03 Not Given ONETIME ONE Iopamidol 60 ml 06/26/16 11:03 06/26/16 14:40 Isovue-370 (76%) IVPUSH 06/26/16 11:04 60 ml ONETIME ONE Administration Sodium Chloride 10 ml 06/26/16 11:02 06/26/16 14:41 Saline Flush FLUSH 06/26/16 11:03 10 ml ONETIME ONE Administration - Radiology Interpretation Free Text/Narrative:: 85-year-old female arrives per ambulance from [place]. Patient is known to suffer from right lung cancer and end-stage COPD. Emesis was summoned because of increased dyspnea and shortness of breath at home. She is on oxygen at 2.5 L per minute at all times. No worsening of her cough. Hardly able to eat and losing weight. Apparently awaiting further consultation with oncology about proceeding with further treatment for lung cancer. Last chemotherapy was in January of 2016. She denies fever chills or hemoptysis. History of congestive failure. Paramedics administered oxygen by nonrebreather mask. A stent stated that her internal CO2 was 48. Assessment of to 97% with her treatment. She also received a DuoNeb and was given intravenously nitroglycerin 125 mg IV. Upon arrival here she was placed back on nasal cannula at 3 L per minute and achieved O2 sats of 94%. She has diffuse audible wheezing. Receive a second DuoNeb treatment. She'll have ABGs carried out one view portable chest x-ray routine labs to include BMP and serum magnesium level. She was moderately hypertensive upon arrival with a systolic pressure of 171/110. Blood pressure is subsequently settling in is 142/89. ECG is unchanged from previous ECG in April. 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 No evidence of acute ischemic changes. CODE STATUS is listed as a one and she remains to remain a full code. IV will be started at normal saline 75 mils per hour. Influenza screen will be carried out in spite of the fact she denies fever or chills. She did have a flu shot. - Re-Assessments/Exams Free Text/Narrative Re-Assessment/Exam: 06/26/16 06:34 O2 sats remained 94% on 2 L per minute. Chest x-ray done shows mildly hyperinflated lung diop. Cardiac silhouette is normal. There is no pneumothorax. There still is an infiltrate right upper lobe suspicious for recurrence of malignancy. Port-A-Cath is left upper anterior chest. Chest x-ray is unchanged from the one done May 07.she remains diffusely severely wheezy. Will try her on continuous albuterol treatment by 7.5 mg over 45 minutes. 06/26/16 06:38 hematology reveals a normal white count of 4.74. Hemoglobin is 10.8 hematocrit is 33.7 platelets 119,000. MCV is elevated at 101.2. ABGs reveal a pH of 7.41 PCO2 is elevated at 51.6. PO2 is 63 bicarbonate is 31.9 i.e. CO2 retainer. O2 sats 92% on 2 L by nasal cannula. 06/26/16 07:10 chemistry reveals a low sodium at 131 potassium 4.2 chloride is 94. Magnesium is minimally low at 1.7. BNP is pending.I did speak with Dr. García coronary care unit nurse hospitalist however she will be leaving within the hour. Dr. Maurice will be taking over hospitalist services. She will pass on the message that Ms. Kirbyen and requires admission to the hospital and is in bed for. Dr. Pinon made aware of her case as well and he will arrange admitting orders when hospitalist excepts care.
[2016-06-26] MEDS: Sodium Chloride 0.9% 1,000 ML IV SCH ×2 (05:58→19:18)
[2016-06-26] MEDS: Albuterol 0.5% 2.5 MG/0.5 ML Neb Soln NEB ONE ×2 (06:53→07:05)
--- NOTE | 2016-06-26 07:20 | CR ---
Chest: Portable view of the chest was obtained. Comparison: Previous chest x-ray of 05/12/16. Nodule is identified within the right upper chest. This is seen on prior study. Lungs otherwise are clear. Infusion port noted from the left side. Heart size is not enlarged. Scoliosis noted within the spine. Bony structures are osteopenic. Emphysematous changes are again seen. Impression: 1. Stable nodule within the right upper chest. 2. Other incidental findings. Nothing acute is appreciated. Diagnostic code #3
[2016-06-26] MEDS ORDERED: Albuterol/Ipratropium 3.0-0.5 MG/3 ML Neb Soln NEB SCH (08:00)
[2016-06-26] MEDS ORDERED: Polyethylene Glycol 3350 Powder 17 GM Packet PO PRN (08:02)
[2016-06-26] MEDS ORDERED: Acetaminophen 325 MG Tab PO PRN (08:02)
[2016-06-26] MEDS ORDERED: Temazepam 15 MG Cap PO PRN (08:02)
[2016-06-26] MEDS ORDERED: Magnesium Hydroxide 400 MG/5 ML Susp 30 ML Cup PO PRN (08:02)
[2016-06-26] MEDS ORDERED: Ondansetron 4 MG Tab.DIS PO PRN (08:02)
[2016-06-26] MEDS ORDERED: Docusate Sodium 100 MG Cap PO PRN (08:02)
[2016-06-26] MEDS ORDERED: Acetaminophen/HYDROcodone 325-5 MG Tab PO PRN (08:02)
[2016-06-26] MEDS: Budesonide 0.5 MG/2 ML Neb Susp NEB SCH ×2 (10:22→20:05)
[2016-06-26] MEDS: Albuterol/Ipratropium 3.0-0.5 MG/3 ML Neb Soln NEB SCH ×3 (10:22→20:05)
[2016-06-26] MEDS ORDERED: Sodium Chloride 0.9% 10 ML Syringe FLUSH ONE (11:02)
[2016-06-26] MEDS ORDERED: Iopamidol 612 MG/ML 100 ML Bottle IVPUSH ONE (11:02)
[2016-06-26] MEDS ORDERED: Iopamidol 755 Mg/ML 100 ML Bottle IVPUSH ONE (11:03)
[2016-06-26] MEDS: amLODIPine 5 MG Tab PO SCH (11:12)
[2016-06-26] MEDS: Levofloxacin/Dextrose 5%-Water 750 MG in Premix Bag 1 BAG IV SCH (11:14)
[2016-06-26] MEDS: Sodium Chloride 0.9% 250 ML IV SCH ×2 (11:21→16:14)
--- NOTE | 2016-06-26 11:59 | PCM.HP ---
H&P History of Present Illness - General Date of Service: 06/26/16 Admit Problem/Dx: Admission Diagnosis/Problem Admission Diagnosis/Problem COPD, Severe chronic obstructive pulmonary disease Source of Information: Patient, Other (ER notes reviewed) History Limitations: Reports: No limitations - History of Present Illness Initial Comments - Free Text/Narative: Shayy is a pleasant 85yo female, appears younger than her age, seen in ER this morning. She has PMH of COPD, lung cancer s/p radiation and chemotherapy treatments, last tx in January of 2016, oxygen dependent only at night, HTN, HLD , GERD and anemia. She is a poor historian as far as diagnosis and history with her lung cancer and other general medical conditions and medications. She has felt fatigued with decreased appetite x 1+ weeks, coughing with progressive SOB x 5 days. She was awoken from sleep around 4am with significant SOB. She summoned her significant other who called the ambulance. She was transported to the ER via ambulance from home in [place]. In route to ER she did receive albuterol neb and solumedrol 125mg IVP for dyspnea/SOB. On my exam she is able to carry on conversation without much SOB in comparison to her arrival to ER. She has had chills and felt cold for the past 4-5 days. Denies chest pains, palpitations, headache, n/v/d. She has been forcing herself to eat at least 3 times daily for the past week. She is weak. She is unsure when she last saw her Oncologist or when she last saw her PCP, Dr. Romero in [place]. She did receive flu shot this year and states should be up to date on pneumonia vaccine. She has had hx of pneumonia multiple times in the past by her report. Onset of Symptoms: Reports: gradual Symptom Onset Date: 06/19/16 Duration of Symptoms: Reports: Week(s): (1) Location: Reports: chest Context: Reports: activity/exercise, exertion. Denies: sick contact, trauma, travel Associated Symptoms: Reports: chest pain, cough, fever/chills (subjective), loss of appetite, malaise, shortness of breath, weakness. Denies: confusion, cough w sputum, diaphoresis, headaches, nausea/vomiting, rash, syncope - Related Data Allergies/Adverse Reactions: Allergies Allergy/AdvReac Type Severity Reaction Status Date / Time celecoxib [From Celebrex] Allergy Cannot Verified 05/12/16 17:01 Remember lovastatin [From Mevacor] Allergy Cannot Verified 05/12/16 17:01 Remember Penicillins Allergy Cannot Verified 05/12/16 17:01 Remember prednisone Allergy Cannot Verified 05/12/16 17:01 Remember Home Medications: Home Meds Albuterol Sulfate 2.5 mg IH BID PRN 05/12/16 [History] Aspirin [Low Dose Aspirin EC] 81 mg PO DAILY 05/12/16 [History] Calcium Carbonate [Calcium] 500 mg PO DAILY 05/12/16 [History] Fluticasone/Salmeterol [Advair 250-50 Diskus] 1 puff IH ASDIRECTED PRN 05/12/16 [History] Lisinopril 40 mg PO DAILY 05/12/16 [History] Multivitamin [Multi-Vitamin Daily] 1 each PO DAILY 05/12/16 [History] Potassium Chloride 40 meq PO DAILY 05/12/16 [History] Simvastatin [Zocor] 20 mg PO BEDTIME 05/12/16 [History] Triamterene/Hydrochlorothiazid [Triamterene-HCTZ 37.5-25 MG] 0.5 each PO DAILY 05/12/16 [History] Vit A/Vit C/Vit E/Zinc/Copper [Preservision] 1 each PO DAILY 05/12/16 [History] amLODIPine [Norvasc] 2.5 mg PO DAILY 05/12/16 [History] Cyanocobalamin (Vitamin B-12) [Vitamin B-12] 0.5 tab PO DAILY 06/26/16 [History] Past Medical History HEENT History: Reports: Cataract Cardiovascular History: Reports: High cholesterol, Hypertension Respiratory History: Reports: COPD, Other (see below) (Right-sided lung cancer diagnosed little over a year ago. From by biopsy treated with radiation and chemotherapy.) Other Respiratory History: lung cancer Gastrointestinal History: Reports: GERD Genitourinary History: Reports: Urinary incontinence (Both urge and stress incontinence.) TONGSMAN History: Reports: Hematologic History: Reports: Anemia, B12 deficiency Oncologic (Cancer) History: Reports: Lung - Infectious Disease History Infectious Disease History: Reports: Chicken pox, Measles, Mumps - Past Surgical History HEENT Surgical History: Reports: Tonsillectomy GI Surgical History: Reports: Cholecystectomy, Colonoscopy, EGD Female Surgical History: Reports: Hysterectomy Social & Family History - Family History Family Medical History: Noncontributory - Tobacco Use Smoking Status *Q: Former Smoker Years of Tobacco use: 69 Packs/Tins Daily: 0.5 - Caffeine Use Caffeine Use: Reports: Coffee - Alcohol Use Days Per Week of Alcohol Use: 7 Number of Drinks Per Day: 1 Total Drinks Per Week: 7 - Recreational Drug Use Recreational Drug Use: No - Living Situation & Occupation Living situation: Reports: Occupation: retired H&P Review of Systems - Review of Systems: Review Of Systems: See Below General: Reports: chills, malaise, weakness, fatigue, decreased appetite. Denies: fever, night sweats, diaphoresis HEENT: Reports: no symptoms Pulmonary: Reports: shortness of breath, wheezing, cough. Denies: pleuritic chest pain, sputum, hemoptysis Cardiovascular: Reports: dyspnea on exertion, orthopnea. Denies: chest pain, palpitations, edema, lightheadedness, syncope Gastrointestinal: Reports: Decreased appetite. Denies: Abdominal pain, Constipation, Diarrhea, Nausea, Vomiting Genitourinary: Reports: incontinence (chronic). Denies: dysuria, frequency, burning, pain, flank pain Musculoskeletal: Reports: back pain (chronic) Skin: Denies: no symptoms, rash Psychiatric: Reports: no symptoms Neurological: Reports: no symptoms. Denies: confusion, dizziness, headache Hematologic/Lymphatic: Reports: anemia, easy bruising Immunologic: Reports: no symptoms Exam - Exam Exam: See Below - Vital Signs Vital Signs: Last Vital Signs Temp 98.8 F 06/26/16 08:21 Pulse 83 06/26/16 08:21 Resp 20 06/26/16 08:21 BP 138/75 06/26/16 11:12 Pulse Ox 95 06/26/16 10:23 Weight: 99 lb - Exam Quality Assessment: supplemental oxygen General: alert, oriented, cooperative HEENT: Conjunctiva clear, EOMI, Hearing intact, Mucosa moist & pink, Nares patent, Pupils equal, Pupils reactive Neck: supple, trachea midline Lungs: Normal respiratory effort, Decreased breath sounds (to bases), Wheezing ( expiratory; tight throughout all diop). No: Crackles, Rales, Rhonchi Cardiovascular: regular rate, regular rhythm, normal S1, normal S2 Abdomen: normal bowel sounds, soft. No: organomegaly, peritoneal signs, distention, guarding, rigidity, rebound, tenderness (Female) Exam: Deferred Rectal (Female) Exam: Deferred Back Exam: normal inspection Extremities: normal inspection, normal pulses. No: edema Peripheral Pulses: 1+: dorsalis pedis (L), dorsalis pedis (R) Skin: warm, dry, intact Neurological: cranial nerves intact Neuro Extensive - Mental Status: alert, oriented x3, normal mood/affect, normal cognition Neuro Extensive - Motor, Sensory, Reflexes: CN II-XII intact Psychiatric: alert, normal affect, normal mood - Patient Data Lab Results last 24 hrs: Laboratory Results - last 24 hr 06/26/16 Range/Units 09:44 Mycoplasma pneumon IgM Negative (NEGATIVE) Result Diagrams: 06/26/16 06:15 06/26/16 06:15 EKG INTERPRETATION EKG Date: 06/26/16 (obtained in ER) Rhythm: NSR P-wave: present QRS: wide Comparison: NA - no prior EKG EKG Interpretation Comments: q waves present, ? old UT-- patient denies prior cardiac hx/AMI/CAD *Q Meaningful Use (ADM) - VTE *Q VTE Criteria *Q: - Stroke *Q Stroke Criteria *Q: - AMI *Q AMI Criteria *Q: - Problem List (1) Acute exacerbation of chronic obstructive pulmonary disease (COPD) SNOMED Code(s): 069976003 ICD Code: J44.1 - CHRONIC OBSTRUCTIVE PULMONARY DISEASE W (ACUTE) EXACERBATION Status: Acute Priority: High Current Visit: Yes (2) Hypoxia SNOMED Code(s): 122051467, 508395995 ICD Code: R09.02 - HYPOXEMIA Status: Acute Priority: High Current Visit : Yes (3) Generalized weakness SNOMED Code(s): 32203992 ICD Code: R53.1 - WEAKNESS Status: Acute Priority: High Current Visit: Yes (4) Hyponatremia SNOMED Code(s): 80813433 ICD Code: E87.1 - HYPO-OSMOLALITY AND HYPONATREMIA Status: Acute Priority : High Current Visit: Yes (5) Anemia SNOMED Code(s): 685192706 ICD Code: D64.9 - ANEMIA, UNSPECIFIED Status: Chronic Priority: Medium Current Visit: Yes Qualifiers: Anemia type: unspecified type Qualified Code(s): D64.9 - Anemia, unspecified (6) Lung cancer SNOMED Code(s): 676255564 ICD Code: C34.90 - MALIGNANT NEOPLASM OF UNSP PART OF UNSP BRONCHUS OR LUNG Status: Chronic Priority: Medium Current Visit: Yes Qualifiers: Laterality: unspecified laterality Lung location: unspecified part of lung Qualified Code(s): C34.90 - Malignant neoplasm of unspecified part of unspecified bronchus or lung Problem List Initiated/Reviewed/Updated: Yes Orders Last 24hrs: Active Orders 24 hr Category Date Time Status Patient Status [ADT] Routine ADT 06/26/16 08:02 Active Ambulate [RC] ASDIRECTED Care 06/26/16 08:02 Active Antiembolic Devices [RC] DAILY Care 06/26/16 08:06 Active Height and Weight [RC] 04 Care 06/26/16 08:02 Active Intake and Output [RC] QSHIFT Care 06/26/16 08:04 Active Oxygen Therapy [RC] PRN Care 06/26/16 08:02 Active RT Aerosol Therapy [RC] .PRN Care 06/26/16 08:06 Active Up With Assistance [RC] ASDIRECTED Care 06/26/16 08:02 Active VTE/DVT Education [RC] PER UNIT ROUTINE Care 06/26/16 08:02 Active Vital Signs [RC] Q4HR Care 06/26/16 08:02 Active Consult to Case Management [CONS] Routine Cons 06/26/16 08:08 Active Consult to Export Specialist [CONS] Routine Cons 06/26/16 08:08 Active OT Evaluation and Treatment [CONS] Routine Cons 06/26/16 08:08 Active PT Evaluation and Treatment [CONS] Routine Cons 06/26/16 08:08 Active Respiratory Care Assess and Treatment [CONS] Routine Cons 06/26/16 08:08 Active 2 Gram Sodium Diet [DIET] Diet 06/26/16 Breakfast Active Chest 2V [CR] AM Exams 06/27/16 05:11 Ordered Chest w Cont [CT] Routine Exams 06/26/16 10:50 Ordered BASIC METABOLIC PANEL,BMP [CHEM] DAILY Lab 06/27/16 05:00 Ordered BASIC METABOLIC PANEL,BMP [CHEM] DAILY Lab 06/28/16 05:00 Ordered BASIC METABOLIC PANEL,BMP [CHEM] DAILY Lab 06/29/16 05:00 Ordered BASIC METABOLIC PANEL,BMP [CHEM] DAILY Lab 06/30/16 05:00 Ordered BASIC METABOLIC PANEL,BMP [CHEM] DAILY Lab 07/01/16 05:00 Ordered BASIC METABOLIC PANEL,BMP [CHEM] DAILY Lab 07/02/16 05:00 Ordered C-REACTIVE PROTEIN [CHEM] DAILY Lab 06/27/16 05:00 Ordered C-REACTIVE PROTEIN [CHEM] DAILY Lab 06/28/16 05:00 Ordered C-REACTIVE PROTEIN [CHEM] DAILY Lab 06/29/16 05:00 Ordered C-REACTIVE PROTEIN [CHEM] DAILY Lab 06/30/16 05:00 Ordered C-REACTIVE PROTEIN [CHEM] DAILY Lab 07/01/16 05:00 Ordered CBC WITH AUTO DIFF [HEME] DAILY Lab 06/27/16 05:00 Ordered CBC WITH AUTO DIFF [HEME] DAILY Lab 06/28/16 05:00 Ordered CBC WITH AUTO DIFF [HEME] DAILY Lab 06/29/16 05:00 Ordered CBC WITH AUTO DIFF [HEME] DAILY Lab 06/30/16 05:00 Ordered CBC WITH AUTO DIFF [HEME] DAILY Lab 07/01/16 05:00 Ordered CBC WITH AUTO DIFF [HEME] DAILY Lab 07/02/16 05:00 Ordered CULTURE BLOOD [BC] Stat Lab 06/26/16 08:31 Received CULTURE BLOOD [BC] Stat Lab 06/26/16 08:55 Received CULTURE SPUTUM + SMEAR [RM] Stat Lab 06/26/16 08:08 Uncollected INFLUENZA A,B, H1N1 BY PCR [MREF] Urgent Lab 06/26/16 08:17 Uncollected MAGNESIUM [CHEM] DAILY Lab 06/27/16 05:00 Ordered MAGNESIUM [CHEM] DAILY Lab 06/28/16 05:00 Ordered MAGNESIUM [CHEM] DAILY Lab 06/29/16 05:00 Ordered MAGNESIUM [CHEM] DAILY Lab 06/30/16 05:00 Ordered MAGNESIUM [CHEM] DAILY Lab 07/01/16 05:00 Ordered MAGNESIUM [CHEM] DAILY Lab 07/02/16 05:00 Ordered STREP PNEUMONIAE ANTIGEN [MREF] Urgent Lab 06/26/16 08:17 Uncollected Acetaminophen [Tylenol] Med 06/26/16 08:02 Active 650 mg PO Q4H PRN Acetaminophen/HYDROcodone [[place] 325-5 MG] Med 06/26/16 08:02 Active 1 tab PO Q4H PRN Albuterol/Ipratropium [DuoNeb 3.0-0.5 MG/3 ML] Med 06/26/16 10:00 Active 3 ml NEB QIDRT Aspirin [Halfprin] Med 06/27/16 09:00 Active 81 mg PO DAILY Budesonide [Pulmicort] Med 06/26/16 09:00 Active 0.5 mg NEB BID Calcium Carbonate Med 06/27/16 09:00 Active 600 mg PO DAILY Cyanocobalamin (Vitamin B12) [Vitamin B12] Med 06/27/16 09:00 Active 1,000 mcg PO DAILY Docusate Sodium [Colace] Med 06/26/16 08:02 Active 100 mg PO BID PRN Famotidine [Pepcid] Med 06/26/16 21:00 Active 20 mg PO BID Levofloxacin/Dextrose 5%-Water [Levaquin in D5W 750 MG/ Med 06/26/16 11:00 Active 150 ML] 750 mg Premix Bag 1 bag IV Q48H Lisinopril [Prinivil] Med 06/26/16 11:00 Active 40 mg PO DAILY Magnesium Hydroxide [Milk of Magnesia] Med 06/26/16 08:02 Active 30 ml PO Q12H PRN Ondansetron [Zofran ODT] Med 06/26/16 08:02 Active 4 mg PO Q4H PRN Patient's Own Medication [Ptom] Med 06/26/16 11:00 Active 0 each PO DAILY Polyethylene Glycol 3350 [MiraLAX] Med 06/26/16 08:02 Active 17 gm PO DAILY PRN Potassium Chloride [Klor-Con M20] Med 06/26/16 11:00 Active 40 meq PO DAILY Saccharomyces Boulardii [Florastor] Med 06/26/16 21:00 Active 250 mg PO BID Simvastatin [Zocor] Med 06/26/16 21:00 Active 20 mg PO BEDTIME Sodium Chloride 0.9% [Normal Saline] 250 ml Med 06/26/16 11:00 Active IV ASDIRECTED Temazepam [Restoril] Med 06/26/16 08:02 Active 15 mg PO BEDTIME PRN amLODIPine [Norvasc] Med 06/26/16 11:00 Active 2.5 mg PO DAILY Blood Culture x2 Reflex Set [OM.PC] Stat Oth 06/26/16 08:08 Ordered Sequential Compression Device [OM.PC] Per Unit Routine Oth 06/26/16 08:05 Ordered Resuscitation Status Routine Resus Stat 06/26/16 08:02 Ordered Medication Orders Acetaminophen (Tylenol) 650 mg PO Q4H PRN PRN Reason: Pain (Mild 1-3)/fever Acetaminophen/Hydrocodone Bitart ([place] 325-5 Mg) 1 tab PO Q4H PRN PRN Reason: Pain (moderate 4-6) Albuterol/Ipratropium (Duoneb 3.0-0.5 Mg/3 Ml) 3 ml NEB QIDRT [facility] Last Admin: 06/26/16 10:22 Dose: 3 ml Amlodipine Besylate (Norvasc) 2.5 mg PO DAILY [facility] Last Admin: 06/26/16 11:12 Dose: 2.5 mg Aspirin (Halfprin) 81 mg PO DAILY [facility] Budesonide (Pulmicort) 0.5 mg NEB BID [facility] Last Admin: 06/26/16 10:22 Dose: 0.5 mg Calcium Carbonate/Glycine (Calcium Carbonate) 600 mg PO DAILY [facility] Cyanocobalamin (Vitamin B12) 1,000 mcg PO DAILY [facility] Docusate Sodium (Colace) 100 mg PO BID PRN PRN Reason: Constipation Famotidine (Pepcid) 20 mg PO BID [facility] Sodium Chloride (Normal Saline) 1,000 mls @ 75 mls/hr IV ASDIRECTED [facility] Last Admin: 06/26/16 05:58 Dose: 75 mls/hr Sodium Chloride (Normal Saline) 250 mls @ 999 mls/hr IV ASDIRECTED [facility] Stop: 06/27/16 11:16 Last Admin: 06/26/16 11:21 Dose: 999 mls/hr Levofloxacin/Dextrose 750 mg/ (Premix) 150 mls @ 100 mls/hr IV Q48H [facility] Last Admin: 06/26/16 11:14 Dose: 100 mls/hr Lisinopril (Prinivil) 40 mg PO DAILY [facility] Magnesium Hydroxide (Milk Of Magnesia) 30 ml PO Q12H PRN PRN Reason: Constipation Ondansetron HCl (Zofran Odt) 4 mg PO Q4H PRN PRN Reason: nausea, able to take PO Triamterene/Hydrochlorothiazid 37.5/25 Mg Tab 0 each PO DAILY [facility] Polyethylene Glycol (Miralax) 17 gm PO DAILY PRN PRN Reason: Constipation Potassium Chloride (Klor-Con M20) 40 meq PO DAILY [facility] Saccharomyces Boulardii (Florastor) 250 mg PO BID [facility] Simvastatin (Zocor) 20 mg PO BEDTIME [facility] Temazepam (Restoril) 15 mg PO BEDTIME PRN PRN Reason: Sleep Assessment/Plan Comment:: A/P: COPD exacerbation with acute hypoxic respiratory failure -Supplemental O2 to keep sats >90% -Aggressive pulmonary toilet, Nebs, RT, pulmicort BID, acapella, IS -Screen for infectious causes: flu screen negative, will check PCR, mycoplasma, s. pneumo. Repeat CXR in am -Solumedrol IV- cautiously as stated allergy to prednisone (unsure of reaction or what happened) stated but rec'd solumedrol in route to ED in ambulance without ADR. -Will cover for infectious causes with Levaquin IV and Zithromax - also for antiinflammatory effect -Reviewed case with Dr. Maurice, recommends CT of chest with contrast to r/o post obstructive pneumonia due to hx of lung cancer, no longer being treated according to patient report. Fluid bolus prior and after scan for renal protection with contrast. Hypoxia -As above- d/t COPD exacerbation vs infectious cause -Tx as above Hyponatremia- mild -Cont close monitoring with am labs Anemia- likely multifactorial -Chronic by history -Will monitor closely with am labs -Iron panel, B12, folate, occult stool for evaluation Hx of lung cancer -According to patient currently not being treated with last chemotherapy tx in January 2016. She is unsure who her Oncologist is or where she was doctoring. -Will discuss status with family later today when they arrive. HTN -Cont home meds and close monitoring Generalized weakness -TSH -Anemia eval as above -Vit D level -PT/OT Other: CM/SW consult for dc planning PT/OT for strengthening; generalized weakness GI prophylax- pepcid DVT prophylax- SCD's and ambulation Patient is full code status
[2016-06-26] MEDS: methylPREDNISolone Sodium Succinate 40 MG/1 ML SDV IVPUSH SCH (12:48)
[2016-06-26] MEDS: Potassium Chloride 20 MEQ Tab.ER PO SCH (12:48)
[2016-06-26] MEDS: Lisinopril 20 MG Tab PO SCH (12:48)
[2016-06-26] MEDS: Azithromycin 500 MG in Sodium Chloride 0.9% 250 ML IV SCH (12:49)
[2016-06-26] MEDS: Ferrous Sulfate 325 MG Tab PO SCH (14:27)
[2016-06-26] MEDS ORDERED: Magnesium Sulfate/Water 2 GM in Premix Bag 1 BAG IV ONE (14:42)
--- NOTE | 2016-06-26 15:25 | CT ---
CT chest Technique: Multiple axial sections were obtained through the chest. Intravenous contrast was utilized. Comparison: No previous chest CT, previous chest x-ray of 06/26/16 (time 5:53 AM). Findings: Small spiculated mass noted within the right upper lung measuring approximately 1.4 cm x 1.0 cm. This is suspicious for small neoplasm. There is soft tissue density adjacent to the upper medial mediastinum which could represent additional pleural based mass versus scarring/atelectasis. Small focal fatty eventration seen of the right posterior hemidiaphragm. Lungs otherwise are clear. Diffuse emphysematous changes are seen. Mild coronary artery calcification is seen. Atherosclerotic calcification noted within the aorta. Mediastinum and hilar regions show no adenopathy or mass. Port-A-Cath is seen entering from the left side. Visualized upper abdominal structures show atherosclerotic calcification within the renal vessels. Small incidental cyst noted within the left kidney. Bone window settings were reviewed which show mild degenerative change within the spine. Impression: 1. 1.4 x 1.0 cm spiculated mass within the right upper lung compatible with small neoplasm. 2. Soft tissue density along the medial aspect of the right upper lung next to the mediastinum. Differential includes additional neoplasm versus scarring/atelectasis. 3. Diffuse emphysematous change and other incidental findings as noted above. Diagnostic code #3
[2016-06-26] MEDS: Simvastatin 20 MG Tab PO SCH (20:47)
[2016-06-26] MEDS: Saccharomyces Boulardii (Probiotic) 250 MG Cap PO SCH (20:47)
[2016-06-26] MEDS: Famotidine 20 MG Tab PO SCH (20:47)
[2016-06-27] MEDS: methylPREDNISolone Sodium Succinate 40 MG/1 ML SDV IVPUSH SCH ×2 (00:57→13:14)
[2016-06-27] MEDS: Sodium Chloride 0.9% 1,000 ML IV SCH ×2 (04:18→17:32)
[2016-06-27] MEDS: Albuterol/Ipratropium 3.0-0.5 MG/3 ML Neb Soln NEB SCH ×4 (06:26→20:19)
--- NOTE | 2016-06-27 08:30 | PCM.PN ---
- General Info Date of Service: 06/27/16 Admission Dx/Problem (Free Text): Admission Diagnosis/Problem Admission Diagnosis/Problem COPD, Severe chronic obstructive pulmonary disease Rebeca is seen this morning sitting at bedside. She did not sleep well last night as was up to bathroom multiple times voiding small amts; states this is usual for her. She has not tried medications for OAB in the past, does have mild UTI currently. Breathing is "much better" this morning. Still SOB with activity and when up to BR. Cough is minimal. No n/v/d. No f/c/s overnight. Appetite is still minimal. Functional Status: Reports: pain controlled, tolerating diet, ambulating, urinating. Denies: new symptoms - Review of Systems General: Reports: no symptoms HEENT: Reports: no symptoms Pulmonary: Reports: shortness of breath, cough, wheezing. Denies: pleuritic chest pain Cardiovascular: Reports: no symptoms, dyspnea on exertion (chronic). Denies: chest pain, palpitations Gastrointestinal: Reports: No symptoms Genitourinary: Reports: frequency, other (nocturia). Denies: dysuria, burning, pain Musculoskeletal: Reports: no symptoms Skin: Reports: no symptoms Neurological: Reports: no symptoms Psychiatric: Reports: no symptoms - Patient Data Vitals - most recent: Last Vital Signs Temp 99.1 F 06/27/16 02:29 Pulse 77 06/27/16 02:29 Resp 20 06/27/16 02:29 BP 144/70 H 06/27/16 02:29 Pulse Ox 96 06/27/16 06:26 Weight - most recent: 102 lb 6.4 oz I&O - last 24 hours: Intake & Output 06/26/16 06/27/16 06/27/16 22:59 06:59 14:59 Intake Total 2415 1736 Output Total 800 1500 Balance 1615 236 Lab Results last 24 hrs: Laboratory Results - last 24 hr 06/26/16 06/26/16 06/26/16 Range/Units 09:44 09:44 09:44 WBC (3.98-10.04) K/mm3 RBC (3.98-5.22) M/mm3 Hgb (11.2-15.7) gm/L Hct (34.1-44.9) % MCV (79.4-94.8) fl MCH (25.6-32.2) pg MCHC (32.2-35.5) g/dl RDW Std Deviation (36.4-46.3) fL Plt Count (182-369) K/mm3 MPV (9.4-12.3) fl Neut % (Auto) (34.0-71.1) % Lymph % (Auto) (19.3-51.7) % [place] % (Auto) (4.7-12.5) % Eos % (Auto) (0.7-5.8) Baso % (Auto) (0.1-1.2) % Neut # (1.56-6.13) K/mm3 Lymph # (1.18-3.74) K/mm3 [place] # (0.24-0.36) K/mm3 Eos # (0.04-0.36) K/mm3 Baso # (0.01-0.08) K/mm3 Manual Slide Review Sodium (136-145) mEq/L Potassium (3.5-5.1) mEq/L Chloride (98-107) mEq/L Carbon Dioxide (21-32) mEq/L Anion Gap (5-15) BUN (7-18) mg/dL Creatinine (0.55-1.02) mg/dL Est Cr Clr Drug Dosing mL/min Estimated GFR (MDRD) (>60) mL/min BUN/Creatinine Ratio (14-18) Glucose (83-115) mg/dL Calcium (8.5-10.1) mg/dL Magnesium (1.8-2.4) mg/dl Iron 44 L (50-170) ug/dL TIBC 438 H (100-400) ug/dL % Saturation 10 L (20-55) % Transferrin 350 (202-364) mg/dL C-Reactive Protein (<1.0) mg/dL Vitamin B12 1637 H (193-986) pg/ml TSH 3rd Generation 4.209 H (0.358-3.74) uIU/mL Mycoplasma pneumon IgM Negative (NEGATIVE) 06/27/16 06/27/16 Range/Units 06:35 06:35 WBC 7.25 (3.98-10.04) K/mm3 RBC 2.81 L (3.98-5.22) M/mm3 Hgb 9.1 L (11.2-15.7) gm/L Hct 28.6 L (34.1-44.9) % MCV 101.8 H (79.4-94.8) fl MCH 32.4 H (25.6-32.2) pg MCHC 31.8 L (32.2-35.5) g/dl RDW Std Deviation 44.7 (36.4-46.3) fL Plt Count 122 L (182-369) K/mm3 MPV 10.3 (9.4-12.3) fl Neut % (Auto) 94.0 H (34.0-71.1) % Lymph % (Auto) 3.6 L (19.3-51.7) % [place] % (Auto) 2.1 L (4.7-12.5) % Eos % (Auto) 0 L (0.7-5.8) Baso % (Auto) 0.0 L (0.1-1.2) % Neut # 6.82 H (1.56-6.13) K/mm3 Lymph # 0.26 L (1.18-3.74) K/mm3 [place] # 0.15 L (0.24-0.36) K/mm3 Eos # 0.00 L (0.04-0.36) K/mm3 Baso # 0.00 L (0.01-0.08) K/mm3 Manual Slide Review Abnormal smear Sodium 135 L (136-145) mEq/L Potassium 3.8 (3.5-5.1) mEq/L Chloride 99 (98-107) mEq/L Carbon Dioxide 30 (21-32) mEq/L Anion Gap 9.8 (5-15) BUN 13 (7-18) mg/dL Creatinine 0.8 (0.55-1.02) mg/dL Est Cr Clr Drug Dosing 37.70 mL/min Estimated GFR (MDRD) > 60 (>60) mL/min BUN/Creatinine Ratio 16.3 (14-18) Glucose 135 H (83-115) mg/dL Calcium 8.4 L (8.5-10.1) mg/dL Magnesium 2.0 (1.8-2.4) mg/dl Iron (50-170) ug/dL TIBC (100-400) ug/dL % Saturation (20-55) % Transferrin (202-364) mg/dL C-Reactive Protein < 0.2 (<1.0) mg/dL Vitamin B12 (193-986) pg/ml TSH 3rd Generation (0.358-3.74) uIU/mL Mycoplasma pneumon IgM (NEGATIVE) Mehrdad Results last 24 hrs: Microbiology 06/26/16 12:20 Influenza Types A & B (PCR) - Final Nasopharynx, Right Med Orders - Current: Current Medications Acetaminophen (Tylenol) 650 mg PO Q4H PRN PRN Reason: Pain (Mild 1-3)/fever Acetaminophen/Hydrocodone Bitart (Palmetto 325-5 Mg) 1 tab PO Q4H PRN PRN Reason: Pain (moderate 4-6) Albuterol/Ipratropium (Duoneb 3.0-0.5 Mg/3 Ml) 3 ml NEB QIDRT [facility] Last Admin: 06/27/16 06:26 Dose: 3 ml Amlodipine Besylate (Norvasc) 2.5 mg PO DAILY [facility] Last Admin: 06/26/16 11:12 Dose: 2.5 mg Aspirin (Halfprin) 81 mg PO DAILY [facility] Budesonide (Pulmicort) 0.5 mg NEB BID [facility] Last Admin: 06/26/16 20:05 Dose: 0.5 mg Calcium Carbonate/Glycine (Calcium Carbonate) 600 mg PO DAILY [facility] Cyanocobalamin (Vitamin B12) 1,000 mcg PO DAILY [facility] Docusate Sodium (Colace) 100 mg PO BID PRN PRN Reason: Constipation Famotidine (Pepcid) 20 mg PO BID [facility] Last Admin: 06/26/16 20:47 Dose: 20 mg Ferrous Sulfate (Ferrous Sulfate) 325 mg PO DAILY [facility] Last Admin: 06/26/16 14:27 Dose: 325 mg Sodium Chloride (Normal Saline) 1,000 mls @ 75 mls/hr IV ASDIRECTED [facility] Last Admin: 06/27/16 04:18 Dose: 75 mls/hr Levofloxacin/Dextrose 750 mg/ (Premix) 150 mls @ 100 mls/hr IV Q48H [facility] Last Admin: 06/26/16 11:14 Dose: 100 mls/hr Azithromycin 500 mg/ Sodium (Chloride) 250 mls @ 250 mls/hr IV Q24H [facility] Last Admin: 06/26/16 12:49 Dose: 250 mls/hr Lisinopril (Prinivil) 40 mg PO DAILY [facility] Last Admin: 06/26/16 12:48 Dose: 40 mg Magnesium Hydroxide (Milk Of Magnesia) 30 ml PO Q12H PRN PRN Reason: Constipation Magnesium Sulfate (Pharmacy To Dose - Magnesium Replacement) 1 dose .XX ASDIRECTED [facility] Methylprednisolone Sodium Succinate (Solu-Medrol) 80 mg IVPUSH Q12H [facility] Last Admin: 06/27/16 00:57 Dose: 80 mg Ondansetron HCl (Zofran Odt) 4 mg PO Q4H PRN PRN Reason: nausea, able to take PO Triamterene/Hydrochlorothiazid 37.5/25 Mg Tab 0 each PO DAILY [facility] Last Admin: 06/26/16 12:52 Dose: 1 each Polyethylene Glycol (Miralax) 17 gm PO DAILY PRN PRN Reason: Constipation Potassium Chloride (Klor-Con M20) 40 meq PO DAILY [facility] Last Admin: 06/26/16 12:48 Dose: 40 meq Potassium Chloride (Pharmacy To Dose - Potassium Replacement) 1 dose .XX ASDIRECTED [facility] Saccharomyces Boulardii (Florastor) 250 mg PO BID [facility] Last Admin: 06/26/16 20:47 Dose: 250 mg Simvastatin (Zocor) 20 mg PO BEDTIME [facility] Last Admin: 06/26/16 20:47 Dose: 20 mg Temazepam (Restoril) 15 mg PO BEDTIME PRN PRN Reason: Sleep Discontinued Medications Albuterol (Proventil) 7.5 mg NEB ONETIME ONE Stop: 06/26/16 06:37 Last Admin: 06/26/16 07:05 Dose: Not Given Albuterol/Ipratropium (Duoneb 3.0-0.5 Mg/3 Ml) 3 ml NEB ONETIME ONE Stop: 06/26/16 05:54 Last Admin: 06/26/16 06:04 Dose: 3 ml Albuterol/Ipratropium (Duoneb 3.0-0.5 Mg/3 Ml) 3 ml NEB Q4H [facility] Last Admin: 06/26/16 08:51 Dose: Not Given Sodium Chloride (Normal Saline) 250 mls @ 999 mls/hr IV ASDIRECTED [facility] Stop: 06/27/16 11:16 Last Admin: 06/26/16 16:14 Dose: 999 mls/hr Magnesium Sulfate 2 gm/ Premix 50 mls @ 25 mls/hr IV ONETIME ONE Stop: 06/26/16 16:41 Last Admin: 06/26/16 16:05 Dose: 25 mls/hr Iopamidol (Isovue-300 (61%)) 60 ml IVPUSH ONETIME ONE Stop: 06/26/16 11:03 Last Admin: 06/26/16 11:51 Dose: Not Given Iopamidol (Isovue-370 (76%)) 60 ml IVPUSH ONETIME ONE Stop: 06/26/16 11:04 Last Admin: 06/26/16 14:40 Dose: 60 ml Sodium Chloride (Saline Flush) 10 ml FLUSH ONETIME ONE Stop: 06/26/16 11:03 Last Admin: 06/26/16 14:41 Dose: 10 ml - Exam Quality Assessment: DVT prophylaxis General: alert, oriented, cooperative, no acute distress HEENT: Pupils equal, Pupils reactive, EOMI, Mucous membr. moist/pink Neck: supple Lungs: Normal respiratory effort, Decreased breath sounds, Wheezing (scattered - much improved from yesterday, by at least 50%) Cardiovascular: regular rate, regular rhythm Abdomen: bowel sounds present, soft, no tenderness, no distension (Female) Exam: Deferred Back Exam: normal inspection Extremities: no edema, no calf tenderness Peripheral Pulses: 1+: dorsalis pedis (L), dorsalis pedis (R) Skin: warm, dry, intact Neurological: no new focal deficit Psy/Mental Status: alert, normal affect, normal mood - Problem List & Annotations (1) Acute exacerbation of chronic obstructive pulmonary disease (COPD) SNOMED Code(s): 624206226 Code(s): J44.1 - CHRONIC OBSTRUCTIVE PULMONARY DISEASE W (ACUTE) EXACERBATION Status: Acute Priority: High Current Visit: Yes (2) Hypoxia SNOMED Code(s): 535755738, 103138713 Code(s): R09.02 - HYPOXEMIA Status: Acute Priority: High Current Visit : Yes (3) Generalized weakness SNOMED Code(s): 09883463 Code(s): R53.1 - WEAKNESS Status: Acute Priority: High Current Visit: Yes (4) Hyponatremia SNOMED Code(s): 80789998 Code(s): E87.1 - HYPO-OSMOLALITY AND HYPONATREMIA Status: Acute Priority : High Current Visit: Yes (5) Anemia SNOMED Code(s): 893289809 Code(s): D64.9 - ANEMIA, UNSPECIFIED Status: Chronic Priority: Medium Current Visit: Yes Qualifiers: Anemia type: unspecified type Qualified Code(s): D64.9 - Anemia, unspecified (6) Lung cancer SNOMED Code(s): 741863948 Code(s): C34.90 - MALIGNANT NEOPLASM OF UNSP PART OF UNSP BRONCHUS OR LUNG Status: Chronic Priority: Medium Current Visit: Yes Qualifiers: Laterality: unspecified laterality Lung location: unspecified part of lung Qualified Code(s): C34.90 - Malignant neoplasm of unspecified part of unspecified bronchus or lung - Problem List Review Problem List Initiated/Reviewed/Updated: Yes - My Orders Last 24 Hours: My Active Orders 06/26/16 08:02 Patient Status [ADT] Routine Ambulate [RC] BID Height and Weight [RC] 04 Oxygen Therapy [RC] PRN Up With Assistance [RC] BID VTE/DVT Education [RC] 10,22 Vital Signs [RC] 03,09,15, Acetaminophen [Tylenol] 650 mg PO Q4H PRN Acetaminophen/HYDROcodone [[place] 325-5 MG] 1 tab PO Q4H PRN Docusate Sodium [Colace] 100 mg PO BID PRN Magnesium Hydroxide [Milk of Magnesia] 30 ml PO Q12H PRN Ondansetron [Zofran ODT] 4 mg PO Q4H PRN Polyethylene Glycol 3350 [MiraLAX] 17 gm PO DAILY PRN Temazepam [Restoril] 15 mg PO BEDTIME PRN Resuscitation Status Routine 06/26/16 08:04 Intake and Output [RC] 04,16 06/26/16 08:05 Sequential Compression Device [OM.PC] Per Unit Routine 06/26/16 08:06 Antiembolic Devices [RC] DAILY RT Aerosol Therapy [RC] .PRN 06/26/16 08:08 Consult to Case Management [CONS] Routine Consult to [employer] [CONS] Routine OT Evaluation and Treatment [CONS] Routine PT Evaluation and Treatment [CONS] Routine Respiratory Care Assess and Treatment [CONS] Routine Blood Culture x2 Reflex Set [OM.PC] Stat 06/26/16 08:31 CULTURE BLOOD [BC] Stat 06/26/16 08:55 CULTURE BLOOD [BC] Stat 06/26/16 09:00 Budesonide [Pulmicort] 0.5 mg NEB BID 06/26/16 10:00 Albuterol/Ipratropium [DuoNeb 3.0-0.5 MG/3 ML] 3 ml NEB QIDRT 06/26/16 11:00 Levofloxacin/Dextrose 5%-Water [Levaquin in D5W 750 MG/150 ML] 750 mg Premix Bag 1 bag IV Q48H Lisinopril [Prinivil] 40 mg PO DAILY Patient's Own Medication [Ptom] 0 each PO DAILY Potassium Chloride [Klor-Con M20] 40 meq PO DAILY amLODIPine [Norvasc] 2.5 mg PO DAILY 06/26/16 12:16 RT Chest Physiotherapy [RC] Q2HWA RT Incentive Spirometry [RC] Q2HWA 06/26/16 12:30 Azithromycin [Zithromax] 500 mg Sodium Chloride 0.9% [Normal Saline] 250 ml IV Q24H methylPREDNISolone Sod Succ [Solu-MEDROL] 80 mg IVPUSH Q12H 06/26/16 13:31 OCCULT BLOOD DIAGNOSTIC [OP] Routine 06/26/16 13:45 Ferrous Sulfate 325 mg PO DAILY 06/26/16 21:00 Famotidine [Pepcid] 20 mg PO BID Saccharomyces Boulardii [Florastor] 250 mg PO BID Simvastatin [Zocor] 20 mg PO BEDTIME 06/27/16 05:11 Chest 2V [CR] AM 06/27/16 09:00 Aspirin [Halfprin] 81 mg PO DAILY Calcium Carbonate 600 mg PO DAILY Cyanocobalamin (Vitamin B12) [Vitamin B12] 1,000 mcg PO DAILY 06/28/16 05:00 BASIC METABOLIC PANEL,BMP [CHEM] DAILY C-REACTIVE PROTEIN [CHEM] DAILY CBC WITH AUTO DIFF [HEME] DAILY MAGNESIUM [CHEM] DAILY 06/29/16 05:00 BASIC METABOLIC PANEL,BMP [CHEM] DAILY C-REACTIVE PROTEIN [CHEM] DAILY CBC WITH AUTO DIFF [HEME] DAILY MAGNESIUM [CHEM] DAILY 06/30/16 05:00 BASIC METABOLIC PANEL,BMP [CHEM] DAILY C-REACTIVE PROTEIN [CHEM] DAILY CBC WITH AUTO DIFF [HEME] DAILY MAGNESIUM [CHEM] DAILY 07/01/16 05:00 BASIC METABOLIC PANEL,BMP [CHEM] DAILY C-REACTIVE PROTEIN [CHEM] DAILY CBC WITH AUTO DIFF [HEME] DAILY MAGNESIUM [CHEM] DAILY 07/02/16 05:00 BASIC METABOLIC PANEL,BMP [CHEM] DAILY CBC WITH AUTO DIFF [HEME] DAILY MAGNESIUM [CHEM] DAILY - Plan Plan:: A/P: COPD exacerbation with acute hypoxic respiratory failure -Supplemental O2 to keep sats >90% -Aggressive pulmonary toilet, Nebs, RT, pulmicort BID, acapella, IS -Screen for infectious causes: flu screen negative, will check PCR, mycoplasma, s. pneumo. Repeat CXR this am; all screenings negative- flu, mycoplasma and s. pneumo. -Solumedrol IV- cautiously as stated allergy to prednisone (unsure of reaction or what happened) stated but rec'd solumedrol in route to ED in ambulance without ADR. Tolerating solumedrol well and without ADR thus far -Will cover for infectious causes with Levaquin IV and Zithromax - also for antiinflammatory effect -Reviewed case with Dr. Maurice, recommends CT of chest with contrast to r/o post obstructive pneumonia due to hx of lung cancer, no longer being treated according to patient report. Fluid bolus prior and after scan for renal protection with contrast. -CT report with RUL spiculations consistent with small neoplasm and density along right upper medial mediastinum consistent with neoplasm vs scarring. Hypoxia -As above- d/t COPD exacerbation vs infectious cause -Tx as above -Improving; wean O2 during the day PRN AUTI- Levaquin IV as above Awaiting culture and sensitivity Component of OAB/nocturia- will try on detrol 2mg BID Hyponatremia- mild -Cont close monitoring with am labs, stable Anemia- likely multifactorial -Chronic by history -Will monitor closely with am labs -Iron panel, B12, folate, occult stool for evaluation--iron levels low, started ferrous sulfate, B12 normal. Awaiting occult. Hx of lung cancer -According to patient currently not being treated with last chemotherapy tx in January 2016. She is unsure who her Oncologist is or where she was doctoring. -Will discuss status with family later today when they arrive. HTN -Cont home meds and close monitoring Generalized weakness -TSH -Anemia eval as above -Vit D level -PT/OT Dry mouth- Try biotine gel Other: CM/SW consult for dc planning PT/OT for strengthening; generalized weakness GI prophylax- pepcid DVT prophylax- SCD's and ambulation Plan likely dc home in 24-48 hours pending progress Patient is full code status
[2016-06-27] MEDS ORDERED: Albuterol 0.083% 2.5 MG/3 ML Neb Soln NEB PRN (08:47)
[2016-06-27] MEDS: Budesonide 0.5 MG/2 ML Neb Susp NEB SCH ×2 (09:23→20:19)
--- NOTE | 2016-06-27 09:26 | CR ---
Chest: Two views of the chest were obtained. Comparison: Previous chest x-ray of 06/26/16. Nodular density seen within the right upper chest. This is stable from previous chest x-ray. Lungs otherwise are clear. Heart size appears slightly prominent but accentuated from portable technique. Left-sided infusion port is seen. Scoliosis is noted within the spine. Bony structures are osteopenic. Lungs are hyperinflated compatible with emphysematous change. Impression: 1. Stable nodule from prior chest x-ray. 2. Emphysematous change. Other incidental findings. Nothing acute is appreciated. Diagnostic code #3
[2016-06-27] MEDS: Saccharomyces Boulardii (Probiotic) 250 MG Cap PO SCH ×2 (09:56→22:44)
[2016-06-27] MEDS: Potassium Chloride 20 MEQ Tab.ER PO SCH (09:57)
[2016-06-27] MEDS: Famotidine 20 MG Tab PO SCH ×2 (09:57→22:44)
[2016-06-27] MEDS: amLODIPine 5 MG Tab PO SCH (09:57)
[2016-06-27] MEDS: Ferrous Sulfate 325 MG Tab PO SCH (09:57)
[2016-06-27] MEDS: Tolterodine 2 MG Tab PO SCH ×2 (09:58→22:44)
[2016-06-27] MEDS: Aspirin 81 MG Tab.EC PO SCH (09:58)
[2016-06-27] MEDS: Lisinopril 20 MG Tab PO SCH (09:58)
[2016-06-27] MEDS: Cyanocobalamin (Vitamin B12) 1,000 MCG Tab PO SCH (09:58)
[2016-06-27] MEDS: Calcium Carbonate 600 MG Tab PO SCH (09:58)
[2016-06-27] MEDS: Lactoperoxi/Gluc Oxid/Pot Thio 42 GM Tube MUCMEM SCH ×4 (10:01→22:53)
[2016-06-27] MEDS: Azithromycin 500 MG in Sodium Chloride 0.9% 250 ML IV SCH (13:19)
[2016-06-27] MEDS: Simvastatin 20 MG Tab PO SCH (22:45)
[2016-06-28] MEDS: methylPREDNISolone Sodium Succinate 40 MG/1 ML SDV IVPUSH SCH ×2 (01:53→13:18)
[2016-06-28] MEDS: Lactoperoxi/Gluc Oxid/Pot Thio 42 GM Tube MUCMEM SCH ×4 (02:02→13:51)
[2016-06-28] MEDS: Albuterol/Ipratropium 3.0-0.5 MG/3 ML Neb Soln NEB SCH ×2 (05:00→10:24)
[2016-06-28] MEDS: Sodium Chloride 0.9% 1,000 ML IV SCH (07:00)
[2016-06-28] MEDS: Saccharomyces Boulardii (Probiotic) 250 MG Cap PO SCH (09:00)
[2016-06-28] MEDS: amLODIPine 5 MG Tab PO SCH (09:01)
[2016-06-28] MEDS: Potassium Chloride 20 MEQ Tab.ER PO SCH (09:01)
[2016-06-28] MEDS: Tolterodine 2 MG Tab PO SCH (09:02)
[2016-06-28] MEDS: Cyanocobalamin (Vitamin B12) 1,000 MCG Tab PO SCH (09:03)
[2016-06-28] MEDS: Calcium Carbonate 600 MG Tab PO SCH (09:03)
[2016-06-28] MEDS: Lisinopril 20 MG Tab PO SCH (09:03)
[2016-06-28] MEDS: Aspirin 81 MG Tab.EC PO SCH (09:04)
[2016-06-28] MEDS: Famotidine 20 MG Tab PO SCH (09:04)
[2016-06-28] MEDS: Ferrous Sulfate 325 MG Tab PO SCH (09:04)
[2016-06-28] MEDS: Budesonide 0.5 MG/2 ML Neb Susp NEB SCH (10:24)
[2016-06-28] MEDS: Levofloxacin/Dextrose 5%-Water 750 MG in Premix Bag 1 BAG IV SCH (11:39)
[2016-06-28] MEDS ORDERED: Bisacodyl 10 MG Supp RECTAL ONE (12:36)
--- NOTE | 2016-06-28 12:52 | PCM.DCSUM1 ---
Discharge Summary - Hospital Course Free Text/Narrative:: Shayy is a pleasant 85yo female, appears younger than her age, seen in ER this morning. She has PMH of COPD, lung cancer s/p radiation and chemotherapy treatments, last tx in January of 2016, oxygen dependent only at night, HTN, HLD , GERD and anemia. She is a poor historian as far as diagnosis and history with her lung cancer and other general medical conditions and medications. She has felt fatigued with decreased appetite x 1+ weeks, coughing with progressive SOB x 5 days. She was awoken from sleep around 4am with significant SOB. She summoned her significant other who called the ambulance. She was transported to the ER via ambulance from home in [place]. In route to ER she did receive albuterol neb and solumedrol 125mg IVP for dyspnea/SOB. On my exam she is able to carry on conversation without much SOB in comparison to her arrival to ER. She has had chills and felt cold for the past 4-5 days. Denies chest pains, palpitations, headache, n/v/d. She has been forcing herself to eat at least 3 times daily for the past week. She is weak. She is unsure when she last saw her Oncologist or when she last saw her PCP, Dr. Romero in [place]. She did receive flu shot this year and states should be up to date on pneumonia vaccine. She has had hx of pneumonia multiple times in the past by her report. She was screened for influenza, s.pneumonia, mycoplasma- all negative. Repeat CXR was negative for pneumonia. Chest CT with contrast was obtained to r/o post obstructive pneumonia relating to lung cancer- negative for pneumonia; did show small spiculated mass to rt upper lobe consistent with small neoplasm. She was treated with IV fluids, IV solumedrol- tapered and will be transitioned to PO prednisone taper at discharge, IV zithromax. Was found to have mild UTI, levaquin was added. UC showed contaminants. She will be discharged home on Keflex for coverage for UTI and URI symptoms. Iron panel was with iron deficiency, iron supplement was started daily along with colace BID upon discharge. Clinically she improved to baseline respiratory status, energy and appetite were improved. VSS, afebrile. She will be discharged home today with follow up with her PCP within 5-7 days for close follow up and recheck. - Discharge Data Discharge Date: 06/28/16 (admit date 06/26/16) Discharge Disposition: Home, Self-Care 01 Condition: Good - Discharge Diagnosis/Problem(s) (1) Acute exacerbation of chronic obstructive pulmonary disease (COPD) SNOMED Code(s): 861597835 ICD Code: J44.1 - CHRONIC OBSTRUCTIVE PULMONARY DISEASE W (ACUTE) EXACERBATION Status: Acute Priority: High Current Visit: Yes (2) Hypoxia SNOMED Code(s): 252786080, 682914841 ICD Code: R09.02 - HYPOXEMIA Status: Acute Priority: High Current Visit : Yes (3) Generalized weakness SNOMED Code(s): 72181239 ICD Code: R53.1 - WEAKNESS Status: Acute Priority: High Current Visit: Yes (4) Hyponatremia SNOMED Code(s): 27009343 ICD Code: E87.1 - HYPO-OSMOLALITY AND HYPONATREMIA Status: Resolved Priority: High Current Visit: Yes (5) Anemia SNOMED Code(s): 071174810 ICD Code: D64.9 - ANEMIA, UNSPECIFIED Status: Chronic Priority: Medium Current Visit: Yes Qualifiers: Anemia type: unspecified type Qualified Code(s): D64.9 - Anemia, unspecified (6) Lung cancer SNOMED Code(s): 055735783 ICD Code: C34.90 - MALIGNANT NEOPLASM OF UNSP PART OF UNSP BRONCHUS OR LUNG Status: Chronic Priority: Medium Current Visit: Yes Qualifiers: Laterality: unspecified laterality Lung location: unspecified part of lung Qualified Code(s): C34.90 - Malignant neoplasm of unspecified part of unspecified bronchus or lung - Patient Summary/Data Operative Procedure(s) Performed: None Complications: None Consults: Consultations 06/26/16 08:08 Consult to Case Management [CONS] Routine Consult to [employer] [CONS] Routine OT Evaluation and Treatment [CONS] Routine PT Evaluation and Treatment [CONS] Routine Respiratory Care Assess and Treatment [CONS] Routine Labs Pending at D/C: None Recommended Follow-up Testing/Procedures: fup with PCP within 5-7 days of discharge Planned Operative Procedure(s) after DC: None Hospital Course: As above - Patient Instructions Diet: Heart Healthy Diet, Low Sodium Activity: As Tolerated (with walker or cane) Driving: Do Not Drive Showering/Bathing: May Shower Notify Provider of: Fever, Increased Pain, Nausea and/or Vomiting (worsening of shortness of breath, coughing, chest pains, weakness) - Discharge Plan Prescriptions/Med Rec: Cephalexin [Keflex] 500 mg PO TID #15 cap Docusate Sodium [Colace] 100 mg PO BID #60 cap Ferrous Sulfate 325 mg PO DAILY #30 tablet Prednisone [IJD: Prednisone] 10 mg PO DAILY #30 tab Tolterodine [Detrol] 2 mg PO BID #60 tablet Home Medications: Home Meds Albuterol Sulfate 2.5 mg IH BID PRN 05/12/16 [History] Aspirin [Low Dose Aspirin EC] 81 mg PO DAILY 05/12/16 [History] Calcium Carbonate [Calcium] 500 mg PO DAILY 05/12/16 [History] Fluticasone/Salmeterol [Advair 250-50 Diskus] 1 puff IH ASDIRECTED PRN 05/12/16 [History] Lisinopril 40 mg PO DAILY 05/12/16 [History] Multivitamin [Multi-Vitamin Daily] 1 each PO DAILY 05/12/16 [History] Potassium Chloride 40 meq PO DAILY 05/12/16 [History] Simvastatin [Zocor] 20 mg PO BEDTIME 05/12/16 [History] Triamterene/Hydrochlorothiazid [Triamterene-HCTZ 37.5-25 MG] 0.5 each PO DAILY 05/12/16 [History] Vit A/Vit C/Vit E/Zinc/Copper [Preservision] 1 each PO DAILY 05/12/16 [History] amLODIPine [Norvasc] 2.5 mg PO DAILY 05/12/16 [History] Cyanocobalamin (Vitamin B-12) [Vitamin B-12] 0.5 tab PO DAILY 06/26/16 [History] Cephalexin [Keflex] 500 mg PO TID #15 cap 06/28/16 [Rx] Docusate Sodium [Colace] 100 mg PO BID #60 cap 06/28/16 [Rx] Ferrous Sulfate 325 mg PO DAILY #30 tablet 06/28/16 [Rx] Prednisone [IJD: Prednisone] 10 mg PO DAILY #30 tab 06/28/16 [Rx] Tolterodine [Detrol] 2 mg PO BID #60 tablet 06/28/16 [Rx] Patient Handouts: Chronic Obstructive Pulmonary Disease Exacerbation, Easy-to- Read, Hypoxemia, Hyponatremia, [id number] Forms: ED Department Discharge Referrals: Duncan Romero MD [Primary Care Provider] - - Discharge Summary/Plan Comment DC Time >30 min.: Yes (40 min) - General Info Date of Service: 06/28/16 Admission Dx/Problem (Free Text: Admission Diagnosis/Problem Admission Diagnosis/Problem COPD, Severe chronic obstructive pulmonary disease Rebeca is seen this morning sitting at bedside. She feels much better today, is anxious to go home. Minimal SOB today, cough is improved. Strength and appetite improving. VSS, afebrile overnight. No new concerns. Family is in room and no questions. Functional Status: Reports: pain controlled, tolerating diet, ambulating, urinating. Denies: new symptoms - Review of Systems General: Reports: no symptoms HEENT: Reports: no symptoms Pulmonary: Reports: shortness of breath (chronic and at baseline), cough (much improved) Cardiovascular: Reports: no symptoms Gastrointestinal: Reports: No symptoms Genitourinary: Reports: no symptoms Musculoskeletal: Reports: no symptoms Skin: Reports: no symptoms Neurological: Reports: no symptoms Psychiatric: Reports: no symptoms - Patient Data Vitals - Most Recent: Last Vital Signs Temp 97.3 F 06/28/16 08:59 Pulse 75 06/28/16 08:59 Resp 24 H 06/28/16 08:59 BP 130/99 H 06/28/16 09:03 Pulse Ox 96 06/28/16 10:29 Weight - Most Recent: 106 lb 0.677 oz I&O - Last 24 hours: Intake & Output 06/27/16 06/28/16 06/28/16 22:59 06:59 14:59 Intake Total 2910 900 Output Total 1400 200 Balance 1510 700 Lab Results - Last 24 hrs: Laboratory Results - last 24 hr 06/28/16 06/28/16 Range/Units 05:46 06:54 WBC 6.77 (3.98-10.04) K/mm3 RBC 2.78 L (3.98-5.22) M/mm3 Hgb 8.9 L (11.2-15.7) gm/L Hct 28.8 L (34.1-44.9) % MCV 103.6 H (79.4-94.8) fl MCH 32.0 (25.6-32.2) pg MCHC 30.9 L (32.2-35.5) g/dl RDW Std Deviation 47.8 H (36.4-46.3) fL Plt Count 118 L (182-369) K/mm3 MPV 10.7 (9.4-12.3) fl Neut % (Auto) 94.0 H (34.0-71.1) % Lymph % (Auto) 3.8 L (19.3-51.7) % Garfield % (Auto) 1.9 L (4.7-12.5) % Eos % (Auto) 0 L (0.7-5.8) Baso % (Auto) 0.0 L (0.1-1.2) % Neut # 6.36 H (1.56-6.13) K/mm3 Lymph # 0.26 L (1.18-3.74) K/mm3 Garfield # 0.13 L (0.24-0.36) K/mm3 Eos # 0.00 L (0.04-0.36) K/mm3 Baso # 0.00 L (0.01-0.08) K/mm3 Manual Slide Review Abnormal smear Sodium 136 (136-145) mEq/L Potassium 4.6 (3.5-5.1) mEq/L Chloride 100 (98-107) mEq/L Carbon Dioxide 29 (21-32) mEq/L Anion Gap 11.6 (5-15) BUN 18 (7-18) mg/dL Creatinine 0.9 (0.55-1.02) mg/dL Est Cr Clr Drug Dosing 34.70 mL/min Estimated GFR (MDRD) 60 (>60) mL/min BUN/Creatinine Ratio 20.0 H (14-18) Glucose 121 H (83-115) mg/dL Calcium 8.4 L (8.5-10.1) mg/dL Magnesium 1.9 (1.8-2.4) mg/dl C-Reactive Protein < 0.2 (<1.0) mg/dL MARIO Results - Last 24 hrs: Microbiology 06/27/16 08:45 Urine Culture - Preliminary Urine, Voided MIXED [place] SUGGESTIVE OF CONTAMINATION. 06/26/16 08:55 Aerobic Blood Culture - Preliminary Blood - Venous - Lab Draw NO GROWTH AFTER 2 DAYS Anaerobic Blood Culture - Preliminary NO GROWTH AFTER 2 DAYS 06/26/16 08:31 Aerobic Blood Culture - Preliminary Blood - Venous NO GROWTH AFTER 2 DAYS Anaerobic Blood Culture - Preliminary NO GROWTH AFTER 2 DAYS 06/26/16 12:20 Influenza Types A & B (PCR) - Final Nasopharynx, Right Med Orders - Current: Current Medications Acetaminophen (Tylenol) 650 mg PO Q4H PRN PRN Reason: Pain (Mild 1-3)/fever Acetaminophen/Hydrocodone Bitart (Magnolia 325-5 Mg) 1 tab PO Q4H PRN PRN Reason: Pain (moderate 4-6) Albuterol (Proventil Neb Soln) 2.5 mg NEB Q4H PRN PRN Reason: Shortness of Breath Albuterol/Ipratropium (Duoneb 3.0-0.5 Mg/3 Ml) 3 ml NEB QIDRT [facility] Last Admin: 06/28/16 10:24 Dose: 3 ml Amlodipine Besylate (Norvasc) 2.5 mg PO DAILY [facility] Last Admin: 06/28/16 09:01 Dose: 2.5 mg Aspirin (Halfprin) 81 mg PO DAILY [facility] Last Admin: 06/28/16 09:04 Dose: 81 mg Budesonide (Pulmicort) 0.5 mg NEB BID [facility] Last Admin: 06/28/16 10:24 Dose: 0.5 mg Calcium Carbonate/Glycine (Calcium Carbonate) 600 mg PO DAILY [facility] Last Admin: 06/28/16 09:03 Dose: 600 mg Cyanocobalamin (Vitamin B12) 1,000 mcg PO DAILY [facility] Last Admin: 06/28/16 09:03 Dose: 1,000 mcg Docusate Sodium (Colace) 100 mg PO BID PRN PRN Reason: Constipation Famotidine (Pepcid) 20 mg PO DAILY [facility] Ferrous Sulfate (Ferrous Sulfate) 325 mg PO DAILY [facility] Last Admin: 06/28/16 09:04 Dose: 325 mg Glucose Oxid/Lactoperoxid/Muramidas (Biotene Oralbalance Gel) 0 gm MUCMEM Q4H [facility] Last Admin: 06/28/16 09:05 Dose: 1 applic Sodium Chloride (Normal Saline) 1,000 mls @ 75 mls/hr IV ASDIRECTED [facility] Last Admin: 06/28/16 07:00 Dose: 75 mls/hr Levofloxacin/Dextrose 750 mg/ (Premix) 150 mls @ 100 mls/hr IV Q48H [facility] Last Admin: 06/28/16 11:39 Dose: 100 mls/hr Azithromycin 500 mg/ Sodium (Chloride) 250 mls @ 250 mls/hr IV Q24H [facility] Last Admin: 06/27/16 13:19 Dose: 250 mls/hr Lisinopril (Prinivil) 40 mg PO DAILY [facility] Last Admin: 06/28/16 09:03 Dose: 40 mg Magnesium Hydroxide (Milk Of Magnesia) 30 ml PO Q12H PRN PRN Reason: Constipation Magnesium Sulfate (Pharmacy To Dose - Magnesium Replacement) 1 dose .XX ASDIRECTED [facility] Methylprednisolone Sodium Succinate (Solu-Medrol) 80 mg IVPUSH Q12H [facility] Last Admin: 06/28/16 01:53 Dose: 80 mg Ondansetron HCl (Zofran Odt) 4 mg PO Q4H PRN PRN Reason: nausea, able to take PO Triamterene/Hydrochlorothiazid 37.5/25 Mg Tab 0 each PO DAILY [facility] Last Admin: 06/28/16 09:05 Dose: 0.5 each Polyethylene Glycol (Miralax) 17 gm PO DAILY PRN PRN Reason: Constipation Potassium Chloride (Klor-Con M20) 40 meq PO DAILY [facility] Last Admin: 06/28/16 09:01 Dose: 40 meq Potassium Chloride (Pharmacy To Dose - Potassium Replacement) 1 dose .XX ASDIRECTED [facility] Saccharomyces Boulardii (Florastor) 250 mg PO BID [facility] Last Admin: 06/28/16 09:00 Dose: 250 mg Simvastatin (Zocor) 20 mg PO BEDTIME [facility] Last Admin: 06/27/16 22:45 Dose: 20 mg Temazepam (Restoril) 15 mg PO BEDTIME PRN PRN Reason: Sleep Tolterodine Tartrate (Detrol) 2 mg PO BID [facility] Last Admin: 06/28/16 09:02 Dose: 2 mg Discontinued Medications Albuterol (Proventil) 7.5 mg NEB ONETIME ONE Stop: 06/26/16 06:37 Last Admin: 06/26/16 07:05 Dose: Not Given Albuterol/Ipratropium (Duoneb 3.0-0.5 Mg/3 Ml) 3 ml NEB ONETIME ONE Stop: 06/26/16 05:54 Last Admin: 06/26/16 06:04 Dose: 3 ml Albuterol/Ipratropium (Duoneb 3.0-0.5 Mg/3 Ml) 3 ml NEB Q4H [facility] Last Admin: 06/26/16 08:51 Dose: Not Given Bisacodyl (Dulcolax) 10 mg RECTAL ONETIME ONE Stop: 06/28/16 12:37 Famotidine (Pepcid) 20 mg PO BID [facility] Last Admin: 06/28/16 09:04 Dose: 20 mg Sodium Chloride (Normal Saline) 250 mls @ 999 mls/hr IV ASDIRECTED [facility] Stop: 06/27/16 11:16 Last Admin: 06/26/16 16:14 Dose: 999 mls/hr Magnesium Sulfate 2 gm/ Premix 50 mls @ 25 mls/hr IV ONETIME ONE Stop: 06/26/16 16:41 Last Admin: 06/26/16 16:05 Dose: 25 mls/hr Iopamidol (Isovue-300 (61%)) 60 ml IVPUSH ONETIME ONE Stop: 06/26/16 11:03 Last Admin: 06/26/16 11:51 Dose: Not Given Iopamidol (Isovue-370 (76%)) 60 ml IVPUSH ONETIME ONE Stop: 06/26/16 11:04 Last Admin: 06/26/16 14:40 Dose: 60 ml Sodium Chloride (Saline Flush) 10 ml FLUSH ONETIME ONE Stop: 06/26/16 11:03 Last Admin: 06/26/16 14:41 Dose: 10 ml - Exam Quality Assessment: Reports: supplemental oxygen, DVT prophylaxis General: Reports: alert, oriented, cooperative, no acute distress HEENT: Reports: Pupils equal, Pupils reactive, EOMI, Mucous membr. moist/pink Neck: Reports: supple Lungs: Reports: Normal respiratory effort, Wheezing (scattered expiratory ; significantly improved) Cardiovascular: Reports: regular rate, regular rhythm Abdomen: Reports: bowel sounds present, soft, no tenderness, no distension (Female) Exam: Deferred Rectal (Female) Exam: Deferred Back Exam: Reports: normal inspection Extremities: Reports: no edema, no calf tenderness Skin: Reports: warm, dry, intact Neurological: Reports: no new focal deficit Psy/Mental Status: Reports: alert, normal affect, normal mood *Q Meaningful Use (DIS) - VTE *Q VTE Criteria *Q: - Stroke *Q Stroke Criteria *Q: - AMI *Q AMI Criteria *Q:
[2016-06-28] MEDS: Azithromycin 500 MG in Sodium Chloride 0.9% 250 ML IV SCH (13:19)
[2016-06-28 16:31] VITALS: BP 153/66
[2016-06-29] MEDS ORDERED: Famotidine 20 MG Tab PO SCH (09:00)
== END 2016-06-28 17:25 | disposition home or self-care (01) | DRG 190 ==
LOC: JD.ED 05:45 → JD.MS 07:50 → JD.OB 06-27 23:23
PROVIDERS: ADMIT Internal Medicine Cardiovascular Disease; ATTEND Internal Medicine Cardiovascular Disease
DX: J44.1 Chronic obstructive pulmonary disease with (acute) exacerbation (principal); J96.01 Acute respiratory failure with hypoxia; E87.1 Hypo-osmolality and hyponatremia; C34.91 Malignant neoplasm of unspecified part of right bronchus or lung; R53.1 Weakness; Z87.891 Personal history of nicotine dependence; D64.9 Anemia, unspecified; I10 Essential (primary) hypertension; E78.00 Pure hypercholesterolemia, unspecified; K21.9 Gastro-esophageal reflux disease without esophagitis; N39.46 Mixed incontinence; M40.204 Unspecified kyphosis, thoracic region; E53.8 Deficiency of other specified B group vitamins; Z79.82 Long term (current) use of aspirin; Z99.81 Dependence on supplemental oxygen; Z79.899 Other long term (current) drug therapy; Z88.0 Allergy status to penicillin; Z88.8 Allergy status to other drugs, medicaments and biological substances; E78.5 Hyperlipidemia, unspecified
CPT/HCPCS: 36415; 36600; 71010; 71010-26; 71020; 71020-26; 71260; 71260-26; 80048; 80053; 81001; 82306; 82553; 82607; 82803; 83540; 83735; 83880; 84443; 84466; 84484; 85025; 85610; 86140; 86738; 87040; 87086; 87502; 87503; 87804; 87899; 93005; 94640-76; 94664; 94667; 94668; 94761; 96360; 96361; 97110-GP; 97112-GP; 97116-GP; 97161-GP; 97165-GO; 97530-GO; 99222; 99232; 99239; 99285; 99285-25; A9270-GY; J0456; J1956; J2920; J3475; J7040; J7050; Q9967

== ENCOUNTER 2016-11-18 07:41 | Emergency (ER) | payer MEDICARE, BC ==
[2016-11-18 07:56] VITALS: BP 173/69
[2016-11-18] MEDS ORDERED: Sodium Chloride 0.9% 10 ML Syringe FLUSH PRN (08:07)
[2016-11-18] MEDS ORDERED: methylPREDNISolone Sodium Succinate 125 MG/2 ML SDV IVPUSH ONE (08:47)
[2016-11-18] MEDS ORDERED: Albuterol/Ipratropium 3.0-0.5 MG/3 ML Neb Soln NEB ONE (08:47)
--- NOTE | 2016-11-18 08:55 | CR ---
Chest: Portable view of the chest was obtained. Comparison: Previous chest x-ray 07/07/16. Left-sided infusion port is seen. Heart size appears within normal limits for portable technique. Tortuous thoracic aorta is seen. Lungs are hyperinflated suggesting emphysematous change. Minimal scarring is noted within the right upper lung with slight nodularity which has represented a small pulmonary nodule on chest CT of 06/26/16. Lungs otherwise are clear. Mild scoliosis is present within the spine. Bony structures are osteopenic. Impression: 1. Right upper lobe nodule with adjacent parenchymal scarring. This remains stable from recent exams. 2. Emphysematous change. 3. Other incidental findings. Nothing acute is appreciated. Diagnostic code #3
--- NOTE | 2016-11-18 09:42 | EDM.PDOC ---
ED HPI GENERAL MEDICAL PROBLEM - General Chief Complaint: Respiratory Problem Stated Complaint: SOB Time Seen by Provider: 11/18/16 08:07 Source of Information: Reports: Patient, Family, RN Notes Reviewed (Spouse) - History of Present Illness INITIAL COMMENTS - FREE TEXT/NARRATIVE: 86-year-old female comes in with shortness of breath. This is been worsening over the past 2 or 3 days. She does have history of COPD. She does use home oxygen at night. She has been more short of breath during the day than usual. He does have a chronic cough may be somewhat more prevalent than usual. Occasional productive. Had some chills but no fever. No chest or abdominal pain. No nausea vomiting or diaphoresis. No leg swelling or apparent fluid retention. - Related Data Allergies Allergy/AdvReac Type Severity Reaction Status Date / Time celecoxib [From Celebrex] Allergy Cannot Verified 11/18/16 07:49 Remember lovastatin [From Mevacor] Allergy Cannot Verified 11/18/16 07:49 Remember Penicillins Allergy Cannot Verified 11/18/16 07:49 Remember prednisone Allergy Cannot Verified 11/18/16 07:49 Remember Home Meds: Home Meds Aspirin [Ecotrin] 81 mg PO DAILY 11/18/16 [History] Calcium Carbonate [Calcium] 500 mg PO DAILY 11/18/16 [History] Doxycycline [Vibramycin] 100 mg PO BID #14 cap 11/18/16 [Rx] Ferrous Sulfate [Iron] 0.5 tab PO DAILY 11/18/16 [History] Fluticasone/Salmeterol [Advair 250-50 Diskus] 1 puff IH BID 11/18/16 [History] Levothyroxine 12.5 mcg PO ACBREAKFAST 11/18/16 [History] Lisinopril 40 mg PO DAILY 11/18/16 [History] Multivitamin [Daily Multiple Vitamin] 1 tab PO DAILY 11/18/16 [History] Potassium Chloride 20 meq PO DAILY 11/18/16 [History] Simvastatin [Zocor] 20 mg PO DAILY 11/18/16 [History] Triamterene/Hydrochlorothiazid [Triamterene-HCTZ 37.5-25 MG] 0.5 tab PO DAILY [History] amLODIPine [Norvasc] 2.5 mg PO DAILY 11/18/16 [History] Past Medical History HEENT History: Reports: Cataract Cardiovascular History: Reports: High Cholesterol, Hypertension Respiratory History: Reports: COPD, Other (See Below) Other Respiratory History: lung cancer Gastrointestinal History: Reports: GERD Genitourinary History: Reports: Urinary Incontinence Other Genitourinary History: denies urinary incontinence [employer] History: Reports: Hematologic History: Reports: Anemia, B12 Deficiency Oncologic (Cancer) History: Reports: Lung - Infectious Disease History Infectious Disease History: Reports: Chicken Pox, Measles, Mumps - Past Surgical History HEENT Surgical History: Reports: Tonsillectomy GI Surgical History: Reports: Cholecystectomy, Colonoscopy, EGD Female Surgical History: Reports: Hysterectomy Social & Family History - Family History Family Medical History: Noncontributory - Tobacco Use Smoking Status *Q: Current Every Day Smoker Years of Tobacco use: 50 Packs/Tins Daily: 0.1 Used Tobacco, but Quit: Yes Month Tobacco Last Used: 05/2016 Tobacco Use Comment: pt states that she smokes maybe 1-2 per day. trying to quit Second Hand Smoke Exposure: No - Caffeine Use Caffeine Use: Reports: Coffee - Alcohol Use Days Per Week of Alcohol Use: 7 Number of Drinks Per Day: 1 Total Drinks Per Week: 7 - Recreational Drug Use Recreational Drug Use: No - Living Situation & Occupation Living situation: Reports: Occupation: Retired ED ROS GENERAL - Review of Systems Review Of Systems: See Below Constitutional: Reports: Chills. Denies: Fever, Diaphoresis HEENT: Denies: Sinus Problem, Throat Pain Respiratory: Reports: Shortness of Breath, Cough, Sputum (Occasional). Denies: Pleuritic Chest Pain Cardiovascular: Denies: Chest Pain GI/Abdominal: Denies: Abdominal Pain, Nausea, Vomiting Musculoskeletal: Denies: Shoulder Pain, Arm Pain Skin: Reports: No Symptoms Neurological: Reports: Dizziness, Weakness. Denies: Numbness, Tingling, Change in Speech (Mild generalized) ED EXAM, GENERAL - Physical Exam Exam: See Below General Appearance: Alert, Mild Distress Eye Exam: Bilateral Eye: PERRL Throat/Mouth: Normal Inspection, Normal Oropharynx Neck: Supple Respiratory/Chest: Respiratory Distress (Mild), Wheezing (Mild to moderate bilateral), Accessory Muscle Use (Mild). No: Rhonchi Cardiovascular: Regular Rate, Rhythm GI/Abdominal: Soft, Non-Tender. No: Guarding Back Exam: No: CVA Tenderness (L), CVA Tenderness (R) Extremities: Normal Inspection. No: Pedal Edema, Leg Pain Neurological: Alert, Oriented, No Motor/Sensory Deficits Skin Exam: Warm, Normal Color EKG INTERPRETATION EKG Date: 11/18/16 Rhythm: NSR [place]: LAD-Left [place] Deviation P-Wave: Present QRS: Other (Q waves leads 3) Course - Vital Signs Last Recorded V/S: Last Vital Signs Temp 97.3 F 11/18/16 07:50 Pulse 57 L 11/18/16 07:50 Resp 14 11/18/16 07:50 BP 173/69 H 11/18/16 07:50 Pulse Ox 99 11/18/16 10:10 - Orders/Labs/Meds Orders: Active Orders 24 hr Category Date Time Status EKG 12 Lead [EKG Documentation Completion] [RC] STAT Care 11/18/16 08:09 Active Peripheral IV Care [RC] . DIRECTED Care 11/18/16 08:10 Active RT Aerosol Therapy [RC] ASDIRECTED Care 11/18/16 08:47 Active RT Aerosol Therapy [RC] ASDIRECTED Care 11/18/16 10:10 Active Peripheral IV Insertion Adult [OM.PC] Stat Oth 11/18/16 08:10 Ordered Labs: Laboratory Tests 11/18/16 11/18/16 11/18/16 Range/Units 08:58 08:58 08:58 WBC 3.56 L (3.98-10.04) K/mm3 RBC 3.79 L (3.98-5.22) M/mm3 Hgb 12.7 (11.2-15.7) gm/L Hct 37.6 (34.1-44.9) % MCV 99.2 H (79.4-94.8) fl MCH 33.5 H (25.6-32.2) pg MCHC 33.8 (32.2-35.5) g/dl RDW Std Deviation 42.3 (36.4-46.3) fL Plt Count 120 L (182-369) K/mm3 MPV 9.9 (9.4-12.3) fl Neut % (Auto) 62.1 (34.0-71.1) % Lymph % (Auto) 18.8 L (19.3-51.7) % [place] % (Auto) 7.9 (4.7-12.5) % Eos % (Auto) 11.2 H (0.7-5.8) Baso % (Auto) 0.0 L (0.1-1.2) % Neut # (Auto) 2.21 (1.56-6.13) K/mm3 Lymph # (Auto) 0.67 L (1.18-3.74) K/mm3 [place] # (Auto) 0.28 (0.24-0.36) K/mm3 Eos # (Auto) 0.40 H (0.04-0.36) K/mm3 Baso # (Auto) 0.00 L (0.01-0.08) K/mm3 Sodium 131 L (136-145) mEq/L Potassium 3.9 (3.5-5.1) mEq/L Chloride 91 L (98-107) mEq/L Carbon Dioxide 33 H (21-32) mEq/L Anion Gap 10.9 (5-15) BUN 9 (7-18) mg/dL Creatinine 0.8 (0.55-1.02) mg/dL Est Cr Clr Drug Dosing 36.51 mL/min Estimated GFR (MDRD) > 60 (>60) mL/min BUN/Creatinine Ratio 11.3 L (14-18) Glucose 84 (83-115) mg/dL Calcium 9.6 (8.5-10.1) mg/dL Total Bilirubin 0.5 (0.2-1.0) mg/dL AST 31 (15-37) U/L ALT 22 (14-59) U/L Alkaline Phosphatase 54 (46-116) U/L Troponin I 0.024 (0.00-0.056) ng/mL C-Reactive Protein < 0.2 (<1.0) mg/dL B-Natriuretic Peptide 108 H (0-100) pg/mL Total Protein 7.5 (6.4-8.2) g/dl Albumin 4.4 (3.4-5.0) g/dl Globulin 3.1 gm/dL Albumin/Globulin Ratio 1.4 (1-2) Meds: Medications Discontinued Medications Generic Name Dose Route Start Last Admin Trade Name Freq PRN Reason Stop Dose Admin Albuterol 2.5 mg 11/18/16 10:10 11/18/16 10:18 Proventil Neb Soln NEB 11/18/16 10:11 2.5 mg ONETIME ONE Administration Albuterol/Ipratropium 3 ml 11/18/16 08:47 11/18/16 09:14 Duoneb 3.0-0.5 Mg/3 Ml NEB 11/18/16 08:48 3 ml ONETIME ONE Administration Methylprednisolone Sodium Succinate 125 mg 11/18/16 08:47 11/18/16 08:56 Solu-Medrol IVPUSH 11/18/16 08:48 125 mg ONETIME ONE Administration Sodium Chloride 10 ml 11/18/16 08:07 11/18/16 09:02 Saline Flush FLUSH 10 ml ASDIRECTED PRN Administration Keep Vein Open - Re-Assessments/Exams Free Text/Narrative Re-Assessment/Exam: 11/18/16 09:42 Chest x-ray shows changes compatible with COPD, no acute infiltrate or other acute findings present. 11/18/16 12:41. Her symptoms did improve quite markedly after a DuoNeb and then later followed up with an albuterol neb. He did give her Solu-Medrol 125 mg IV. As noted there is been no evidence for pneumonia. I would have liked to put her on a short-term course of prednisone but she states that she became "very itchy when given prednisone some time in the past". Or we will hold off on that for now. I am going to treat her with a 7 day course of Levaquin orally for bronchitis, acute exacerbation COPD. Charge instructions as documented Departure - Departure Time of Disposition: 11:15 Disposition: Home, Self-Care 01 Condition: Fair Clinical Impression: Bronchitis COPD (chronic obstructive pulmonary disease) Qualifiers: COPD type: COPD with acute exacerbation Qualified Code(s): J44.1 - Chronic obstructive pulmonary disease with (acute) exacerbation - Discharge Information Prescriptions: Doxycycline [Vibramycin] 100 mg PO BID #14 cap Instructions: Bronchospasm, Adult Referrals: Duncan Romero MD [Primary Care Provider] - Forms: ED Department Discharge Additional Instructions: Albuterol nebs 3-4 times daily as needed for wheezing and shortness of breath, continue other medications as previously prescribed, doxycycline 100 mg twice daily for 1 week, follow-up with your clinic provider later this week for recheck, call for appointment, return to ED if symptoms worsening in any way - My Orders Last 24 Hours: My Active Orders 11/18/16 08:09 EKG 12 Lead [EKG Documentation Completion] [RC] STAT 11/18/16 08:10 Peripheral IV Care [RC] . DIRECTED Peripheral IV Insertion Adult [OM.PC] Stat 11/18/16 08:47 RT Aerosol Therapy [RC] ASDIRECTED 11/18/16 10:10 RT Aerosol Therapy [RC] ASDIRECTED - Assessment/Plan Last 24 Hours: My Active Orders 11/18/16 08:09 EKG 12 Lead [EKG Documentation Completion] [RC] STAT 11/18/16 08:10 Peripheral IV Care [RC] . DIRECTED Peripheral IV Insertion Adult [OM.PC] Stat 11/18/16 08:47 RT Aerosol Therapy [RC] ASDIRECTED 11/18/16 10:10 RT Aerosol Therapy [RC] ASDIRECTED
[2016-11-18] MEDS ORDERED: Albuterol 0.083% 2.5 MG/3 ML Neb Soln NEB ONE (10:10)
== END 2016-11-18 11:33 | disposition home or self-care (01) ==
LOC: JD.ED 07:41
DX: J44.1 Chronic obstructive pulmonary disease with (acute) exacerbation (principal); J40 Bronchitis, not specified as acute or chronic; I10 Essential (primary) hypertension; K21.9 Gastro-esophageal reflux disease without esophagitis; D64.9 Anemia, unspecified; F17.210 Nicotine dependence, cigarettes, uncomplicated; Z90.49 Acquired absence of other specified parts of digestive tract; Z90.710 Acquired absence of both cervix and uterus; Z88.0 Allergy status to penicillin; Z88.8 Allergy status to other drugs, medicaments and biological substances; Z79.82 Long term (current) use of aspirin; Z79.899 Other long term (current) drug therapy; E78.00 Pure hypercholesterolemia, unspecified
CPT/HCPCS: 36415; 71010; 80053; 83880; 84484; 85025; 86140; 93005; 94640; 94664; 96374; 99285; J2930; J7050; 99284

== ENCOUNTER 2016-12-07 09:14 | Emergency (ER) | payer MEDICARE, BC ==
[2016-12-07 09:31] VITALS: BP 163/104
[2016-12-07] MEDS ORDERED: Sodium Chloride 0.9% 10 ML Syringe FLUSH PRN (10:03)
[2016-12-07] MEDS ORDERED: Albuterol/Ipratropium 3.0-0.5 MG/3 ML Neb Soln NEB ONE (10:04)
[2016-12-07] MEDS ORDERED: methylPREDNISolone Sodium Succinate 125 MG/2 ML SDV IVPUSH ONE (10:04)
--- NOTE | 2016-12-07 10:08 | EDM.PDOC ---
ED HPI GENERAL MEDICAL PROBLEM - General Chief Complaint: Respiratory Problem Stated Complaint: SOB Time Seen by Provider: 12/07/16 09:58 Source of Information: Reports: Patient, Family History Limitations: Reports: No Limitations - History of Present Illness INITIAL COMMENTS - FREE TEXT/NARRATIVE: The patient presents with increased shortness of breath. This started yesterday. She was outside in the humid weather. She wears oxygen at night and she had to use it yesterday. She has a slight cough but no fever or chills. She had some chest pain a few days ago but none now. She has a history of COPD. She denies abdominal pain, nausea and vomiting. She has no pain or swelling in her legs. She also has a history of lung cancer. Onset: Gradual Duration: Day(s): (Yesterday) Improves with: Reports: None Worsens with: Reports: Movement Context: Reports: Activity (She was outside yesterday when this started) Associated Symptoms: Reports: Chest Pain (a few days ago), Cough (mild), Shortness of Breath. Denies: Fever/Chills, Nausea/Vomiting - Related Data Allergies Allergy/AdvReac Type Severity Reaction Status Date / Time celecoxib [From Celebrex] Allergy Cannot Verified 12/07/16 09:23 Remember lovastatin [From Mevacor] Allergy Cannot Verified 12/07/16 09:23 Remember Penicillins Allergy Cannot Verified 12/07/16 09:23 Remember prednisone Allergy Cannot Verified 12/07/16 09:23 Remember Home Meds: Home Meds Aspirin [Ecotrin] 81 mg PO DAILY 11/18/16 [History] Calcium Carbonate [Calcium] 500 mg PO DAILY 11/18/16 [History] Ferrous Sulfate [Iron] 0.5 tab PO DAILY 11/18/16 [History] Levothyroxine 12.5 mcg PO ACBREAKFAST 11/18/16 [History] Lisinopril 40 mg PO DAILY 11/18/16 [History] Potassium Chloride 20 meq PO BID 11/18/16 [History] Simvastatin [Zocor] 20 mg PO DAILY 11/18/16 [History] amLODIPine [Norvasc] 2.5 mg PO DAILY 11/18/16 [History] Albuterol Sulfate 1 inhalation NEB ASDIRECTED PRN 12/07/16 [History] Albuterol Sulfate [Proair Hfa] 1 puff INH ASDIRECTED PRN 12/07/16 [History] Cyanocobalamin/Cobamamide [Vitamin B-12 5,000 Mcg Tab Sl] 0.5 tab PO DAILY 12/07 [History] Fluticasone/Salmeterol [Advair 250-50 Diskus] 2 puff INH DAILY 12/07/16 [History ] Multivit-Min/FA/Lycopene/Lut [Centrum Silver Tablet] 1 tab PO DAILY 12/07/16 [ History] Prednisone [IJD: predniSONE] 20 mg PO WITHBREAKFAST #5 tab 12/07/16 [Rx] Past Medical History HEENT History: Reports: Cataract, Impaired Vision Other HEENT History: wears eyeglasses Cardiovascular History: Reports: High Cholesterol, Hypertension Respiratory History: Reports: COPD, Other (See Below) Other Respiratory History: lung cancer Gastrointestinal History: Reports: GERD Genitourinary History: Reports: Urinary Incontinence, UTI, Recurrent Other Genitourinary History: denies urinary incontinence 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: Hematologic History: Reports: Anemia, B12 Deficiency Oncologic (Cancer) History: Reports: Lung - Infectious Disease History Infectious Disease History: Reports: Chicken Pox, Measles, Mumps - Past Surgical History HEENT Surgical History: Reports: Cataract Surgery, Tonsillectomy GI Surgical History: Reports: Cholecystectomy, Colonoscopy, EGD Female Surgical History: Reports: Hysterectomy Musculoskeletal Surgical History: Reports: Hip Replacement Social & Family History - Family History Family Medical History: Noncontributory - Tobacco Use Smoking Status *Q: Former Smoker Years of Tobacco use: 60 Packs/Tins Daily: 0.1 Used Tobacco, but Quit: No Month Tobacco Last Used: 05/2016 Second Hand Smoke Exposure: No - Caffeine Use Caffeine Use: Reports: Coffee - Alcohol Use Days Per Week of Alcohol Use: 7 Number of Drinks Per Day: 1 Total Drinks Per Week: 7 - Recreational Drug Use Recreational Drug Use: No - Living Situation & Occupation Living situation: Reports: Occupation: Retired ED ROS GENERAL - Review of Systems Review Of Systems: See Below Constitutional: Reports: No Symptoms HEENT: Reports: No Symptoms Respiratory: Reports: Shortness of Breath, Cough Cardiovascular: Reports: No Symptoms Endocrine: Reports: No Symptoms GI/Abdominal: Reports: No Symptoms : Reports: No Symptoms Musculoskeletal: Reports: No Symptoms ED EXAM, GENERAL - Physical Exam Exam: See Below Exam Limited By: No Limitations General Appearance: Alert, No Apparent Distress Ears: Normal External Exam Nose: Normal Inspection Head: Atraumatic, Normocephalic Neck: Normal Inspection Respiratory/Chest: No Respiratory Distress, Decreased Breath Sounds, Wheezing ( Mild) Cardiovascular: Regular Rate, Rhythm, No Edema, No Murmur GI/Abdominal: Soft, Non-Tender, No Organomegaly, No Mass Back Exam: Normal Inspection Extremities: Normal Inspection Neurological: Alert, Oriented, No Motor/Sensory Deficits Course - Vital Signs Last Recorded V/S: Last Vital Signs Temp 98.2 F 12/07/16 09:15 Pulse 62 12/07/16 09:15 Resp 24 H 12/07/16 09:15 BP 163/104 H 12/07/16 09:15 Pulse Ox 91 L 12/07/16 10:26 - Orders/Labs/Meds Orders: Active Orders 24 hr Category Date Time Status Cardiac Monitoring [RC] . DIRECTED Care 12/07/16 10:03 Active EKG 12 Lead [EKG Documentation Completion] [RC] STAT Care 12/07/16 10:00 Active Oxygen Therapy [RC] PRN Care 12/07/16 10:03 Active Peripheral IV Care [RC] . DIRECTED Care 12/07/16 10:04 Active RT Aerosol Therapy [RC] ASDIRECTED Care 12/07/16 10:04 Active Chest 2V [CR] Stat Exams 12/07/16 10:04 Taken Sodium Chloride 0.9% [Saline Flush] Med 12/07/16 10:03 Active 10 ml FLUSH ASDIRECTED PRN Peripheral IV Insertion Adult [OM.PC] Stat Oth 12/07/16 10:03 Ordered Medication Orders Sodium Chloride (Saline Flush) 10 ml FLUSH ASDIRECTED PRN PRN Reason: Keep Vein Open Last Admin: 12/07/16 10:10 Dose: 10 ml Labs: Laboratory Tests 12/07/16 12/07/16 12/07/16 Range/Units 09:35 09:35 09:45 WBC 2.76 L (3.98-10.04) K/mm3 RBC 3.46 L (3.98-5.22) M/mm3 Hgb 11.4 (11.2-15.7) gm/L Hct 34.4 (34.1-44.9) % MCV 99.4 H (79.4-94.8) fl MCH 32.9 H (25.6-32.2) pg MCHC 33.1 (32.2-35.5) g/dl RDW Std Deviation 41.5 (36.4-46.3) fL Plt Count 105 L (182-369) K/mm3 MPV 10.9 (9.4-12.3) fl Neut % (Auto) 58.7 (34.0-71.1) % Lymph % (Auto) 21.4 (19.3-51.7) % [place] % (Auto) 8.3 (4.7-12.5) % Eos % (Auto) 11.2 H (0.7-5.8) Baso % (Auto) 0.0 L (0.1-1.2) % Neut # (Auto) 1.62 (1.56-6.13) K/mm3 Lymph # (Auto) 0.59 L (1.18-3.74) K/mm3 [place] # (Auto) 0.23 L (0.24-0.36) K/mm3 Eos # (Auto) 0.31 (0.04-0.36) K/mm3 Baso # (Auto) 0.00 L (0.01-0.08) K/mm3 Manual Slide Review Abnormal smear Sodium 130 L (136-145) mEq/L Potassium 4.0 (3.5-5.1) mEq/L Chloride 93 L (98-107) mEq/L Carbon Dioxide 34 H (21-32) mEq/L Anion Gap 7.0 (5-15) BUN 14 (7-18) mg/dL Creatinine 1.0 (0.55-1.02) mg/dL Est Cr Clr Drug Dosing 29.21 mL/min Estimated GFR (MDRD) 53 (>60) mL/min BUN/Creatinine Ratio 14.0 (14-18) Glucose 84 (83-115) mg/dL Calcium 10.1 (8.5-10.1) mg/dL Total Bilirubin 0.4 (0.2-1.0) mg/dL AST 35 (15-37) U/L ALT 21 (14-59) U/L Alkaline Phosphatase 54 (46-116) U/L Troponin I < 0.017 (0.00-0.056) ng/mL Total Protein 7.5 (6.4-8.2) g/dl Albumin 4.2 (3.4-5.0) g/dl Globulin 3.3 gm/dL Albumin/Globulin Ratio 1.3 (1-2) Urine Color Yellow (Yellow) Urine Appearance Clear (Clear) Urine pH 7.5 (5.0-8.0) Ur Specific [place] 1.015 (1.005-1.030) Urine Protein Negative (Negative) Urine Glucose (UA) Negative (Negative) Urine Ketones Negative (Negative) Urine Occult Blood Negative (Negative) Urine Nitrite Negative (Negative) Urine Bilirubin Negative (Negative) Urine Urobilinogen 0.2 (0.2-1.0) Ur Leukocyte Esterase Negative (Negative) Urine RBC 0-5 (0-5) /hpf Urine WBC 0-5 (0-5) /hpf Ur Epithelial Cells 0-5 (0-5) /hpf Urine Bacteria Few (FEW) /hpf Urine Mucus Few (FEW) /hpf Meds: Medications Generic Name Dose Route Start Last Admin Trade Name Sravanthi PRN Reason Stop Dose Admin Sodium Chloride 10 ml 12/07/16 10:03 12/07/16 10:10 Saline Flush FLUSH 10 ml ASDIRECTED PRN Administration Keep Vein Open Discontinued Medications Generic Name Dose Route Start Last Admin Trade Name Sravanthi PRN Reason Stop Dose Admin Albuterol/Ipratropium 3 ml 12/07/16 10:04 12/07/16 10:26 Duoneb 3.0-0.5 Mg/3 Ml NEB 12/07/16 10:05 3 ml ONETIME ONE Administration Methylprednisolone Sodium Succinate 125 mg 12/07/16 10:04 12/07/16 10:17 Solu-Medrol IVPUSH 12/07/16 10:05 125 mg ONETIME ONE Administration - Re-Assessments/Exams Free Text/Narrative Re-Assessment/Exam: 12/07/16 10:15 I ordered oxygen as needed, IV saline lock, duoneb, solu-medrol 125mg IV, labs, CXR, and EKG. 12/07/16 11:18 Her CXR shows emphysema but no infiltrate. Her EKG shows a NSR with Q waves in the inferior leads. Her WBC is a little low at 2.76 and her platelets are a little low at 105. Her Na was low at 130. Her troponin was negative and her UA was negative. I got a UA because she was urinated more often. She is breathing better. She is having a mild exacerbation of her COPD. I will get her 20mg of prednisone for 5 days. Departure - Departure Time of Disposition: 11:25 Disposition: Home, Self-Care 01 Condition: Good Clinical Impression: Acute exacerbation of chronic obstructive pulmonary disease (COPD) - Discharge Information Prescriptions: Prednisone [IJD: predniSONE] 20 mg PO WITHBREAKFAST #5 tab Referrals: Duncan Romero MD [Primary Care Provider] - Forms: ED Department Discharge Additional Instructions: Continue taking your prescribed medications. Take the prednisone 20mg daily for 5 days. Please return if you are worse. - My Orders Last 24 Hours: My Active Orders 12/07/16 10:00 EKG 12 Lead [EKG Documentation Completion] [RC] STAT 12/07/16 10:03 Cardiac Monitoring [RC] . DIRECTED Oxygen Therapy [RC] PRN Sodium Chloride 0.9% [Saline Flush] 10 ml FLUSH ASDIRECTED PRN Peripheral IV Insertion Adult [OM.PC] Stat 12/07/16 10:04 Peripheral IV Care [RC] . DIRECTED RT Aerosol Therapy [RC] ASDIRECTED Chest 2V [CR] Stat - Assessment/Plan Last 24 Hours: My Active Orders 12/07/16 10:00 EKG 12 Lead [EKG Documentation Completion] [RC] STAT 12/07/16 10:03 Cardiac Monitoring [RC] . DIRECTED Oxygen Therapy [RC] PRN Sodium Chloride 0.9% [Saline Flush] 10 ml FLUSH ASDIRECTED PRN Peripheral IV Insertion Adult [OM.PC] Stat 12/07/16 10:04 Peripheral IV Care [RC] . DIRECTED RT Aerosol Therapy [RC] ASDIRECTED Chest 2V [CR] Stat
--- NOTE | 2016-12-09 07:24 | CR ---
Chest: Two views of the chest were obtained. Comparison: Previous chest x-ray of 11/18/16. Left-sided infusion port is seen. Heart size is normal. Tortuous thoracic aorta is seen. Right upper lobe nodule is identified which appears to be stable. Lungs otherwise are clear but hyperinflated. Compression deformity is noted within the lower thoracic spine which is stable. Slight anterior wedging of an upper thoracic vertebral body is seen which is stable. Scoliosis is present within the spine. Bony structures are osteopenic. Impression: 1. Multiple findings as noted above which are believed to be stable. 2. Nothing acute is identified on two-view chest x-ray. Diagnostic code #3
== END 2016-12-07 11:36 | disposition home or self-care (01) ==
LOC: JD.ED 09:14 → SUPCPDRO 09:14 → JD.ED 11:36
DX: J44.1 Chronic obstructive pulmonary disease with (acute) exacerbation (principal); E78.00 Pure hypercholesterolemia, unspecified; I10 Essential (primary) hypertension; K21.9 Gastro-esophageal reflux disease without esophagitis; Z87.440 Personal history of urinary (tract) infections; D64.9 Anemia, unspecified; Z98.890 Other specified postprocedural states; Z88.0 Allergy status to penicillin; Z88.8 Allergy status to other drugs, medicaments and biological substances; Z79.82 Long term (current) use of aspirin; Z98.49 Cataract extraction status, unspecified eye; Z79.899 Other long term (current) drug therapy; Z96.649 Presence of unspecified artificial hip joint; Z90.710 Acquired absence of both cervix and uterus; Z87.891 Personal history of nicotine dependence; Z85.118 Personal history of other malignant neoplasm of bronchus and lung
CPT/HCPCS: 36415; 71020; 80053; 81001; 84484; 85025; 93005; 94664; 96374; 99285; J2930; J7050; 99284

== ENCOUNTER 2017-02-03 06:33 | Observation (INO) | payer MEDICARE, BC ==
[2017-02-03] MEDS ORDERED: Ondansetron 4 MG/2 ML SDV IVPUSH ONE (07:05)
[2017-02-03] MEDS: Sodium Chloride 0.9% 10 ML Syringe FLUSH PRN (07:24)
--- NOTE | 2017-02-03 08:09 | CT ---
Head CT Technique: Multiple axial sections through the brain were obtained. Intravenous contrast was not utilized. Comparison: Prior head CT study of 03/28/16. Findings: Ventricles along with basal cisterns and sulci over the convexities are mildly prominent. Diminished density is noted within portions of the periventricular, basal ganglia and subcortical white matter which is compatible with small vessel ischemic demyelination change. 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 No other abnormal parenchymal densities are seen. No evidence of intracranial hemorrhage. No midline shift or mass effect is seen. Mild atherosclerotic calcification is seen within the carotid siphon. Visualized sinuses are clear. No acute calvarial abnormality is identified. Small calcification or small foreign body is projected within the soft tissues of the left frontal region which is seen on prior study and is unchanged. Impression: 1. Senescent change and other incidental findings. Nothing acute is appreciated on noncontrast head CT exam. Findings are fairly stable from previous head CT study. Diagnostic code #2
--- NOTE | 2017-02-03 08:41 | EDM.PDOC ---
ED HPI GENERAL MEDICAL PROBLEM - General Chief Complaint: General Stated Complaint: DIZZINESS Time Seen by Provider: 02/03/17 06:56 Source of Information: Reports: Patient, Family History Limitations: Reports: No Limitations - History of Present Illness INITIAL COMMENTS - FREE TEXT/NARRATIVE: The patient complains of dizziness that started this morning about 4am when she woke up to go to the bathroom. It feels like the room is spinning or that she is off balance. She did not feel well when she went to bed last night. She denies headache, fever, chills, cough, ear pain, recent hearing loss, ringing in her ears, chest pain, shortness of breath, abdominal pain. She has nausea but no vomiting. This has never happened to her before. She has no numbness or weakness. Onset: Sudden Duration: Hour(s): (4am) Improves with: Reports: Immobilization Worsens with: Reports: Movement Context: Reports: Activity (She was waking up to go to the bathroom when it started) Associated Symptoms: Reports: Nausea/Vomiting. Denies: Confusion, Chest Pain, Fever/Chills, Headaches, Shortness of Breath - Related Data Allergies Allergy/AdvReac Type Severity Reaction Status Date / Time celecoxib [From Celebrex] Allergy Cannot Verified 02/03/17 06:39 Remember lovastatin [From Mevacor] Allergy Cannot Verified 02/03/17 06:39 Remember Penicillins Allergy Cannot Verified 02/03/17 06:39 Remember prednisone Allergy Cannot Verified 02/03/17 06:39 Remember Home Meds: Home Meds Aspirin [Ecotrin] 81 mg PO DAILY 11/18/16 [History] Calcium Carbonate [Calcium] 500 mg PO DAILY 11/18/16 [History] Ferrous Sulfate [Iron] 0.5 tab PO DAILY 11/18/16 [History] Levothyroxine 12.5 mcg PO ACBREAKFAST 11/18/16 [History] Lisinopril 40 mg PO DAILY 11/18/16 [History] Potassium Chloride 20 meq PO BID 11/18/16 [History] Simvastatin [Zocor] 20 mg PO DAILY 11/18/16 [History] amLODIPine [Norvasc] 2.5 mg PO DAILY 11/18/16 [History] Albuterol Sulfate 1 inhalation NEB ASDIRECTED PRN 12/07/16 [History] Albuterol Sulfate [Proair Hfa] 1 puff INH ASDIRECTED PRN 12/07/16 [History] Cyanocobalamin/Cobamamide [Vitamin B-12 5,000 Mcg Tab Sl] 0.5 tab PO DAILY 12/07 [History] Fluticasone/Salmeterol [Advair 250-50 Diskus] 2 puff INH DAILY 12/07/16 [History ] Multivit-Min/FA/Lycopene/Lut [Centrum Silver Tablet] 1 tab PO DAILY 12/07/16 [ History] Prednisone [IJD: predniSONE] 20 mg PO WITHBREAKFAST #5 tab 12/07/16 [Rx] Past Medical History HEENT History: Reports: Cataract, Impaired Vision Other HEENT History: wears eyeglasses Cardiovascular History: Reports: High Cholesterol, Hypertension Respiratory History: Reports: COPD, Other (See Below) Other Respiratory History: lung cancer Gastrointestinal History: Reports: GERD Genitourinary History: Reports: Urinary Incontinence, UTI, Recurrent Other Genitourinary History: denies urinary incontinence 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: Hematologic History: Reports: Anemia, B12 Deficiency Oncologic (Cancer) History: Reports: Lung - Infectious Disease History Infectious Disease History: Reports: Chicken Pox, Measles, Mumps - Past Surgical History HEENT Surgical History: Reports: Cataract Surgery, Tonsillectomy GI Surgical History: Reports: Cholecystectomy, Colonoscopy, EGD Female Surgical History: Reports: Hysterectomy Musculoskeletal Surgical History: Reports: Hip Replacement Social & Family History - Family History Family Medical History: Noncontributory - Tobacco Use Smoking Status *Q: Current Every Day Smoker Years of Tobacco use: 40 Packs/Tins Daily: 0.2 Used Tobacco, but Quit: No Month Tobacco Last Used: 05/2016 Second Hand Smoke Exposure: No - Caffeine Use Caffeine Use: Reports: Coffee, Soda, Tea - Alcohol Use Days Per Week of Alcohol Use: 7 Number of Drinks Per Day: 1 Total Drinks Per Week: 7 - Recreational Drug Use Recreational Drug Use: No - Living Situation & Occupation Living situation: Reports: Occupation: Retired ED ROS GENERAL - Review of Systems Review Of Systems: See Below Constitutional: Reports: No Symptoms HEENT: Reports: Vertigo Respiratory: Reports: No Symptoms Cardiovascular: Reports: No Symptoms Endocrine: Reports: No Symptoms GI/Abdominal: Reports: Nausea. Denies: Abdominal Pain, Vomiting : Reports: No Symptoms Musculoskeletal: Reports: No Symptoms Skin: Reports: No Symptoms ED EXAM, GENERAL - Physical Exam Exam: See Below Exam Limited By: No Limitations General Appearance: Alert, No Apparent Distress Eye Exam: Right Eye: Nystagmus, Bilateral Eye: EOMI Ears: Normal External Exam, Normal Canal, Normal TMs Nose: Normal Inspection Head: Atraumatic, Normocephalic Neck: Normal Inspection Respiratory/Chest: No Respiratory Distress, Lungs Clear, Normal Breath Sounds Cardiovascular: Regular Rate, Rhythm, No Edema, No Murmur GI/Abdominal: Soft, Non-Tender, No Organomegaly, No Mass Back Exam: Normal Inspection Extremities: Normal Inspection EKG INTERPRETATION EKG Date: 02/03/17 Time: 07:32 Rhythm: NSR Rate (Beats/Min): 61 [place]: Normal P-Wave: Present QRS: Normal ST-T: Normal QT: Normal EKG Interpretation Comments: Supraventricular bigeminy and Q waves in the anterior leads Course - Vital Signs Last Recorded V/S: Last Vital Signs Temp 97.9 F 02/03/17 06:39 Pulse 56 L 02/03/17 06:39 Resp 18 02/03/17 06:39 BP 174/74 H 02/03/17 06:39 Pulse Ox 94 L 02/03/17 06:39 - Orders/Labs/Meds Orders: Active Orders 24 hr Category Date Time Status Cardiac Monitoring [RC] . DIRECTED Care 02/03/17 07:03 Active EKG Documentation Completion [RC] STAT Care 02/03/17 07:04 Active Peripheral IV Care [RC] . DIRECTED Care 02/03/17 07:04 Active Sodium Chloride 0.9% [Normal Saline] 1,000 ml Med 02/03/17 09:00 Active IV ASDIRECTED Sodium Chloride 0.9% [Saline Flush] Med 02/03/17 07:03 Active 10 ml FLUSH ASDIRECTED PRN Peripheral IV Insertion Adult [OM.PC] Stat Oth 02/03/17 07:03 Ordered Medication Orders Sodium Chloride (Normal Saline) 1,000 mls @ 100 mls/hr IV ASDIRECTED MEKA Last Admin: 02/03/17 09:02 Dose: 100 mls/hr Sodium Chloride (Saline Flush) 10 ml FLUSH ASDIRECTED PRN PRN Reason: Keep Vein Open Last Admin: 02/03/17 07:24 Dose: 10 ml Labs: Laboratory Tests 02/03/17 02/03/17 Range/Units 06:48 06:48 WBC 2.90 L (3.98-10.04) K/mm3 RBC 3.44 L (3.98-5.22) M/mm3 Hgb 11.4 (11.2-15.7) gm/L Hct 35.0 (34.1-44.9) % MCV 101.7 H (79.4-94.8) fl MCH 33.1 H (25.6-32.2) pg MCHC 32.6 (32.2-35.5) g/dl RDW Std Deviation 44.4 (36.4-46.3) fL Plt Count 134 L (182-369) K/mm3 MPV 10.3 (9.4-12.3) fl Neut % (Auto) 62.5 (34.0-71.1) % Lymph % (Auto) 19.3 (19.3-51.7) % [place] % (Auto) 10.0 (4.7-12.5) % Eos % (Auto) 7.9 H (0.7-5.8) Baso % (Auto) 0.0 L (0.1-1.2) % Neut # (Auto) 1.81 (1.56-6.13) K/mm3 Lymph # (Auto) 0.56 L (1.18-3.74) K/mm3 [place] # (Auto) 0.29 (0.24-0.36) K/mm3 Eos # (Auto) 0.23 (0.04-0.36) K/mm3 Baso # (Auto) 0.00 L (0.01-0.08) K/mm3 Manual Slide Review Abnormal smear Sodium 136 (136-145) mEq/L Potassium 3.8 (3.5-5.1) mEq/L Chloride 96 L (98-107) mEq/L Carbon Dioxide 32 (21-32) mEq/L Anion Gap 11.8 (5-15) BUN 14 (7-18) mg/dL Creatinine 0.9 (0.55-1.02) mg/dL Est Cr Clr Drug Dosing 32.77 mL/min Estimated GFR (MDRD) 59 (>60) mL/min BUN/Creatinine Ratio 15.6 (14-18) Glucose 92 (83-115) mg/dL Calcium 9.3 (8.5-10.1) mg/dL Total Bilirubin 0.4 (0.2-1.0) mg/dL AST 27 (15-37) U/L ALT 19 (14-59) U/L Alkaline Phosphatase 56 (46-116) U/L Troponin I < 0.017 (0.00-0.056) ng/mL Total Protein 7.3 (6.4-8.2) g/dl Albumin 4.0 (3.4-5.0) g/dl Globulin 3.3 gm/dL Albumin/Globulin Ratio 1.2 (1-2) Meds: Medications Generic Name Dose Route Start Last Admin Trade Name Freq PRN Reason Stop Dose Admin Sodium Chloride 1,000 mls @ 100 mls/hr 02/03/17 09:00 02/03/17 09:02 Normal Saline IV 100 mls/hr ASDIRECTED MEKA Administration Sodium Chloride 10 ml 02/03/17 07:03 02/03/17 07:24 Saline Flush FLUSH 10 ml ASDIRECTED PRN Administration Keep Vein Open Discontinued Medications Generic Name Dose Route Start Last Admin Trade Name Freq PRN Reason Stop Dose Admin Meclizine HCl 25 mg 02/03/17 07:05 02/03/17 07:22 Antivert PO 02/03/17 07:06 25 mg ONETIME ONE Administration Methylprednisolone Sodium Succinate 125 mg 02/03/17 09:15 02/03/17 09:24 Solu-Medrol IVPUSH 02/03/17 09:16 125 mg ONETIME ONE Administration Ondansetron HCl 4 mg 02/03/17 07:05 02/03/17 07:21 Zofran IVPUSH 02/03/17 07:06 4 mg ONETIME ONE Administration - Re-Assessments/Exams Free Text/Narrative Re-Assessment/Exam: 02/03/17 08:42 I ordered an IV saline lock, zofran 4mg IV, antivert 25mg PO, labs, EKG, and head CT. Her head CT shows nothing acute. Her EKG shows a NSR with no acute changes. Her WBC was low at 2.9. She was not anemic. Her CMP and troponin look good. She still feels dizzy. 02/03/17 09:51 I have tried solu-medrol 125mg IV and she still is dizzy. I feel she needs to be admitted. I called Dr García and she agreed to the admission. She will only meet observation criteria. Departure - Departure Time of Disposition: 09:55 Disposition: Refer to Observation Condition: Fair Clinical Impression: Vertigo - Discharge Information Referrals: Duncan Romero MD [Primary Care Provider] - Forms: ED Department Discharge - My Orders Last 24 Hours: My Active Orders 02/03/17 07:03 Cardiac Monitoring [RC] . DIRECTED Sodium Chloride 0.9% [Saline Flush] 10 ml FLUSH ASDIRECTED PRN Peripheral IV Insertion Adult [OM.PC] Stat 02/03/17 07:04 EKG Documentation Completion [RC] STAT Peripheral IV Care [RC] . DIRECTED 02/03/17 09:00 Sodium Chloride 0.9% [Normal Saline] 1,000 ml IV ASDIRECTED - Assessment/Plan Last 24 Hours: My Active Orders 02/03/17 07:03 Cardiac Monitoring [RC] . DIRECTED Sodium Chloride 0.9% [Saline Flush] 10 ml FLUSH ASDIRECTED PRN Peripheral IV Insertion Adult [OM.PC] Stat 02/03/17 07:04 EKG Documentation Completion [RC] STAT Peripheral IV Care [RC] . DIRECTED 02/03/17 09:00 Sodium Chloride 0.9% [Normal Saline] 1,000 ml IV ASDIRECTED
[2017-02-03] MEDS ORDERED: Sodium Chloride 0.9% 1,000 ML IV SCH (09:00)
[2017-02-03] MEDS ORDERED: methylPREDNISolone Sodium Succinate 125 MG/2 ML SDV IVPUSH ONE (09:15)
--- NOTE | 2017-02-03 10:59 | PCM.HP ---
H&P History of Present Illness - General Date of Service: 02/03/17 Source of Information: Patient, Family, Provider History Limitations: Reports: No Limitations - History of Present Illness Initial Comments - Free Text/Narative: The patient and family report dizziness with occasional episodes of the room spinning. 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 Overall , she is not feeling like herself, however this sense of feeling out of sorts resolved before she was seen by the hospitalist service. The patient denies Onset of Symptoms: Reports: Sudden Duration of Symptoms: Reports: Hour(s):, Getting Worse Location: Reports: Head Quality: Reports: Same as Previous Episode (remote episode) Severity: Moderate Improves with: Reports: Medication Worsens with: Reports: None Associated Symptoms: Reports: Nausea/Vomiting, Weakness - Related Data Allergies/Adverse Reactions: Allergies Allergy/AdvReac Type Severity Reaction Status Date / Time celecoxib [From Celebrex] Allergy Cannot Verified 02/03/17 06:39 Remember lovastatin [From Mevacor] Allergy Cannot Verified 02/03/17 06:39 Remember Penicillins Allergy Cannot Verified 02/03/17 06:39 Remember prednisone Allergy Cannot Verified 02/03/17 06:39 Remember Home Medications: Home Meds Aspirin [Ecotrin] 81 mg PO DAILY 11/18/16 [History] Ferrous Sulfate [Iron] 0.5 tab PO DAILY 11/18/16 [History] Levothyroxine 25 mcg PO ACBREAKFAST 11/18/16 [History] Lisinopril 40 mg PO DAILY 11/18/16 [History] Potassium Chloride 20 meq PO BID 11/18/16 [History] Simvastatin [Zocor] 20 mg PO BEDTIME 11/18/16 [History] amLODIPine [Norvasc] 2.5 mg PO DAILY 11/18/16 [History] Albuterol Sulfate 1 inhalation NEB TID PRN 12/07/16 [History] Albuterol Sulfate [Proair Hfa] 1 puff INH BID PRN 12/07/16 [History] Cyanocobalamin/Cobamamide [Vitamin B-12 5,000 Mcg Tab Sl] 0.5 tab PO DAILY 12/07 [History] Fluticasone/Salmeterol [Advair 250-50 Diskus] 1 puff INH BID 12/07/16 [History] Multivit-Min/FA/Lycopene/Lut [Centrum Silver Tablet] 1 tab PO DAILY 12/07/16 [ History] Calcium Carbonate [Calcium] 600 mg PO DAILY 02/03/17 [History] Triamterene/Hydrochlorothiazid [Triamterene-HCTZ 37.5-25 MG] 0.5 tab PO DAILY [History] Past Medical History HEENT History: Reports: Cataract, Impaired Vision Other HEENT History: wears eyeglasses Cardiovascular History: Reports: High Cholesterol, Hypertension Respiratory History: Reports: COPD, Other (See Below) Other Respiratory History: lung cancer Gastrointestinal History: Reports: GERD Genitourinary History: Reports: Urinary Incontinence, UTI, Recurrent Other Genitourinary History: denies urinary incontinence 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: Hematologic History: Reports: Anemia, B12 Deficiency Oncologic (Cancer) History: Reports: Lung - Infectious Disease History Infectious Disease History: Reports: Chicken Pox, Measles, Mumps - Past Surgical History HEENT Surgical History: Reports: Cataract Surgery, Tonsillectomy GI Surgical History: Reports: Cholecystectomy, Colonoscopy, EGD Female Surgical History: Reports: Hysterectomy Musculoskeletal Surgical History: Reports: Hip Replacement Social & Family History - Family History Family Medical History: Noncontributory - Tobacco Use Smoking Status *Q: Current Every Day Smoker Years of Tobacco use: 40 Packs/Tins Daily: 0.2 Used Tobacco, but Quit: No Month Tobacco Last Used: 05/2016 Second Hand Smoke Exposure: No - Caffeine Use Caffeine Use: Reports: Coffee, Soda, Tea - Alcohol Use Days Per Week of Alcohol Use: 7 Number of Drinks Per Day: 1 Total Drinks Per Week: 7 - Recreational Drug Use Recreational Drug Use: No - Living Situation & Occupation Living situation: Reports: Occupation: Retired H&P Review of Systems - Review of Systems: Review Of Systems: See Below General: Reports: Weakness HEENT: Reports: No Symptoms Pulmonary: Reports: No Symptoms Cardiovascular: Reports: No Symptoms Gastrointestinal: Reports: No Symptoms Genitourinary: Reports: No Symptoms Musculoskeletal: Reports: No Symptoms Skin: Reports: No Symptoms Psychiatric: Reports: No Symptoms Neurological: Reports: Dizziness Hematologic/Lymphatic: Reports: No Symptoms Immunologic: Reports: No Symptoms Exam - Exam Exam: See Below - Vital Signs Vital Signs: Last Vital Signs Temp 36.6 C 02/03/17 06:39 Pulse 56 L 02/03/17 06:39 Resp 18 02/03/17 06:39 BP 174/74 H 02/03/17 06:39 Pulse Ox 94 L 02/03/17 06:39 Weight: 46.266 kg - Exam Quality Assessment: Supplemental Oxygen, DVT Prophylaxis General: Alert, Oriented, Cooperative HEENT: EOMI, Nares Patent, Normal Nasal Septum, Pupils Equal, Pupils Reactive, PERRLA Neck: Supple, Trachea Midline Lungs: Normal Respiratory Effort Cardiovascular: Regular Rate GI/Abdominal Exam: Normal Bowel Sounds, Soft, Non-Tender, No Organomegaly, No Distention (Female) Exam: Deferred Rectal (Female) Exam: Deferred Back Exam: Normal Inspection Extremities: Normal Inspection Skin: Warm Neurological: Cranial Nerves Intact Neuro Extensive - Mental Status: Alert, Oriented x3, Normal Mood/Affect, Normal Cognition, Memory Intact Neuro Extensive - Motor, Sensory, Reflexes: CN II-XII Intact Psychiatric: Alert, Normal Affect, Normal Mood - Patient Data Result Diagrams: 02/03/17 06:48 02/03/17 06:48 *Q Meaningful Use (ADM) - VTE *Q VTE Criteria *Q: - Stroke *Q Stroke Criteria *Q: - AMI *Q AMI Criteria *Q: - Problem List (1) Acute exacerbation of chronic obstructive pulmonary disease (COPD) SNOMED Code(s): 584014286 ICD Code: J44.1 - CHRONIC OBSTRUCTIVE PULMONARY DISEASE W (ACUTE) EXACERBATION Status: Acute Priority: High Current Visit: No (2) Benign positional vertigo SNOMED Code(s): 276608224 ICD Code: H81.10 - BENIGN PAROXYSMAL VERTIGO, UNSPECIFIED EAR Status: Acute Current Visit: No Qualifiers: Laterality: unspecified laterality Qualified Code(s): H81.10 - Benign paroxysmal vertigo, unspecified ear (3) Generalized weakness SNOMED Code(s): 03972664 ICD Code: R53.1 - WEAKNESS Status: Acute Priority: High Current Visit: No (4) Hypomagnesemia SNOMED Code(s): 401882706 ICD Code: E83.42 - HYPOMAGNESEMIA Status: Acute Current Visit: No (5) Hypoxia SNOMED Code(s): 182506106 ICD Code: R09.02 - HYPOXEMIA Status: Acute Priority: High Current Visit : No Problem List Initiated/Reviewed/Updated: Yes Orders Last 24hrs: Medication Orders Sodium Chloride (Normal Saline) 1,000 mls @ 100 mls/hr IV ASDIRECTED MEKA Last Admin: 02/03/17 09:02 Dose: 100 mls/hr Sodium Chloride (Saline Flush) 10 ml FLUSH ASDIRECTED PRN PRN Reason: Keep Vein Open Last Admin: 02/03/17 07:24 Dose: 10 ml Assessment/Plan Comment:: Impression: Dizziness, unspecified-->doubt vertigo; query posterior circulation History of tobacco, significant risk factor for PVD, denies impact on her health HTN, asymmetrical elevated BP, consider subclavian artery stenosis Unknown lipid status Doubt arrhythmia Chronic COPD History of Lung CA History urinary Incontinence Tobacco dependence Plan: IVF MRA of neck 2D echo Art duplex of lower extremities CAD eval; obs with telemetry; risk factor modifications. Tobacco cessation counseling; [employer] Home meds DVT/GI prophylaxis
[2017-02-03] MEDS ORDERED: ALBUTEROL INH PRN (11:05)
[2017-02-03] MEDS ORDERED: Albuterol 0.083% 2.5 MG/3 ML Neb Soln NEB PRN (11:05)
[2017-02-03] MEDS: SALMETEROL INH SCH (21:29)
[2017-02-03] MEDS: FLUTICASONE INH SCH (21:29)
[2017-02-03] MEDS: AMLODIPINE 5 MG PO SCH (22:02)
[2017-02-03] MEDS: POTASSIUM CHLORIDE 20 MEQ PO SCH (22:02)
[2017-02-04] MEDS: LEVOTHYROXINE 25 MCG PO SCH (06:11)
[2017-02-04] MEDS ORDERED: Gadobenate Dimeglumine 529 MG/ML 15 ML SDV IVPUSH ONE ×2 (08:37→08:38)
[2017-02-04] MEDS: Sodium Chloride 0.9% 10 ML Syringe FLUSH PRN (08:38)
[2017-02-04] MEDS: SALMETEROL INH SCH ×2 (09:14→21:20)
[2017-02-04] MEDS: FLUTICASONE INH SCH ×2 (09:14→21:20)
[2017-02-04] MEDS: Enoxaparin 40 MG/0.4 ML Syringe SUBCUT SCH (10:44)
[2017-02-04] MEDS: ASPIRIN 81 MG PO SCH (10:45)
[2017-02-04] MEDS: POTASSIUM CHLORIDE 20 MEQ PO SCH ×2 (10:45→21:17)
[2017-02-04] MEDS: CALCIUM CARBONATE 600 MG PO SCH (10:46)
[2017-02-04] MEDS: SIMVASTATIN 20 MG PO SCH (10:46)
[2017-02-04] MEDS: Nicotine 7 MG/24 Hr Patch TRDERM SCH (10:46)
[2017-02-04] MEDS: FERROUS SULFATE 325 MG PO SCH (10:47)
[2017-02-04] MEDS: COBAMAMIDE PO SCH (10:49)
[2017-02-04] MEDS: CYANOCOBALAMIN PO SCH (10:49)
[2017-02-04] MEDS: [UNRECOGNIZED DRUG - OTHER] PO SCH (10:51)
[2017-02-04] MEDS: LISINOPRIL 40 MG PO SCH (10:51)
[2017-02-04] MEDS: Potassium Chloride 10% 20 MEQ/15 ML Soln 30 ML UD Cup PO SCH ×2 (11:24→21:17)
[2017-02-04] MEDS ORDERED: Magnesium Sulfate/Water 4 GM in Premix Bag 1 BAG IV ONE (11:30)
--- NOTE | 2017-02-04 12:22 | PCM.PN ---
- General Info Date of Service: 02/04/17 Functional Status: Reports: Tolerating Diet, Ambulating - Review of Systems General: Reports: Weakness HEENT: Reports: No Symptoms Pulmonary: Reports: No Symptoms Cardiovascular: Reports: No Symptoms Gastrointestinal: Reports: No Symptoms Genitourinary: Reports: No Symptoms Musculoskeletal: Reports: No Symptoms Skin: Reports: No Symptoms Neurological: Reports: No Symptoms Psychiatric: Reports: No Symptoms - Patient Data Vitals - Most Recent: Last Vital Signs Temp 36.6 C 02/04/17 09:35 Pulse 64 02/04/17 09:35 Resp 18 02/04/17 09:35 BP 148/58 H 02/04/17 09:35 Pulse Ox 98 02/04/17 09:35 Weight - Most Recent: 46.629 kg I&O - Last 24 Hours: Intake & Output 02/03/17 02/04/17 02/04/17 22:59 06:59 14:59 Intake Total 1521 318 Output Total 2 Balance 1521 316 Lab Results Last 24 Hours: Laboratory Results - last 24 hr 02/03/17 02/03/17 02/04/17 Range/Units 18:00 20:00 06:41 WBC (3.98-10.04) K/mm3 RBC (3.98-5.22) M/mm3 Hgb (11.2-15.7) gm/L Hct (34.1-44.9) % MCV (79.4-94.8) fl MCH (25.6-32.2) pg MCHC (32.2-35.5) g/dl RDW Std Deviation (36.4-46.3) fL Plt Count (182-369) K/mm3 MPV (9.4-12.3) fl Neut % (Auto) (34.0-71.1) % Lymph % (Auto) (19.3-51.7) % [place] % (Auto) (4.7-12.5) % Eos % (Auto) (0.7-5.8) Baso % (Auto) (0.1-1.2) % Neut # (Auto) (1.56-6.13) K/mm3 Lymph # (Auto) (1.18-3.74) K/mm3 [place] # (Auto) (0.24-0.36) K/mm3 Eos # (Auto) (0.04-0.36) K/mm3 Baso # (Auto) (0.01-0.08) K/mm3 ESR 17 (0-20) mm/hr Sodium (136-145) mEq/L Potassium (3.5-5.1) mEq/L Chloride (98-107) mEq/L Carbon Dioxide (21-32) mEq/L Anion Gap (5-15) BUN (7-18) mg/dL Creatinine (0.55-1.02) mg/dL Est Cr Clr Drug Dosing mL/min Estimated GFR (MDRD) (>60) mL/min BUN/Creatinine Ratio (14-18) Glucose (83-115) mg/dL Calcium (8.5-10.1) mg/dL Magnesium (1.8-2.4) mg/dl Troponin I < 0.017 (0.00-0.056) ng/mL C-Reactive Protein (<1.0) mg/dL Triglycerides (<150) mg/dL Cholesterol (<200) mg/dL LDL Cholesterol Direct (<100) mg/dL HDL Cholesterol (40-59) mg/dL Urine Color Yellow (Yellow) Urine Appearance Clear (Clear) Urine pH 6.0 (5.0-8.0) Ur Specific [place] > or = 1.030 (1.005-1.030) Urine Protein 2+ H (Negative) Urine Glucose (UA) 2+ H (Negative) Urine Ketones Negative (Negative) Urine Occult Blood Trace-intact H (Negative) Urine Nitrite Negative (Negative) Urine Bilirubin Negative (Negative) Urine Urobilinogen 0.2 (0.2-1.0) Ur Leukocyte Esterase Negative (Negative) Urine RBC 0-5 (0-5) /hpf Urine WBC 0-5 (0-5) /hpf Ur Epithelial Cells 0-5 (0-5) /hpf Urine Bacteria Moderate H (FEW) /hpf Urine Mucus Not seen (FEW) /hpf 02/04/17 02/04/17 Range/Units 06:41 06:41 WBC 4.36 (3.98-10.04) K/mm3 RBC 2.86 L (3.98-5.22) M/mm3 Hgb 9.5 L (11.2-15.7) gm/L Hct 28.8 L (34.1-44.9) % MCV 100.7 H (79.4-94.8) fl MCH 33.2 H (25.6-32.2) pg MCHC 33.0 (32.2-35.5) g/dl RDW Std Deviation 42.9 (36.4-46.3) fL Plt Count 128 L (182-369) K/mm3 MPV 10.7 (9.4-12.3) fl Neut % (Auto) 79.3 H (34.0-71.1) % Lymph % (Auto) 13.1 L (19.3-51.7) % [place] % (Auto) 7.6 (4.7-12.5) % Eos % (Auto) 0 L (0.7-5.8) Baso % (Auto) 0.0 L (0.1-1.2) % Neut # (Auto) 3.46 (1.56-6.13) K/mm3 Lymph # (Auto) 0.57 L (1.18-3.74) K/mm3 [place] # (Auto) 0.33 (0.24-0.36) K/mm3 Eos # (Auto) 0.00 L (0.04-0.36) K/mm3 Baso # (Auto) 0.00 L (0.01-0.08) K/mm3 ESR (0-20) mm/hr Sodium 138 (136-145) mEq/L Potassium 3.3 L (3.5-5.1) mEq/L Chloride 99 (98-107) mEq/L Carbon Dioxide 28 (21-32) mEq/L Anion Gap 14.3 (5-15) BUN 12 (7-18) mg/dL Creatinine 0.9 (0.55-1.02) mg/dL Est Cr Clr Drug Dosing 33.03 mL/min Estimated GFR (MDRD) 59 (>60) mL/min BUN/Creatinine Ratio 13.3 L (14-18) Glucose 104 (83-115) mg/dL Calcium 8.0 L (8.5-10.1) mg/dL Magnesium 1.3 L (1.8-2.4) mg/dl Troponin I < 0.017 (0.00-0.056) ng/mL C-Reactive Protein < 0.2 (<1.0) mg/dL Triglycerides 32 (<150) mg/dL Cholesterol 168 (<200) mg/dL LDL Cholesterol Direct 67 (<100) mg/dL HDL Cholesterol 95.0 H (40-59) mg/dL Urine Color (Yellow) Urine Appearance (Clear) Urine pH (5.0-8.0) Ur Specific [place] (1.005-1.030) Urine Protein (Negative) Urine Glucose (UA) (Negative) Urine Ketones (Negative) Urine Occult Blood (Negative) Urine Nitrite (Negative) Urine Bilirubin (Negative) Urine Urobilinogen (0.2-1.0) Ur Leukocyte Esterase (Negative) Urine RBC (0-5) /hpf Urine WBC (0-5) /hpf Ur Epithelial Cells (0-5) /hpf Urine Bacteria (FEW) /hpf Urine Mucus (FEW) /hpf Mehrdad Results Last 24 Hours: Microbiology 02/03/17 20:00 Urine Culture - Preliminary Urine, Clean Catch MIXED [place] SUGGESTIVE OF CONTAMINATION. Med Orders - Current: Current Medications Albuterol (Proventil Hfa) 0 gm INH BID PRN PRN Reason: Wheezing Albuterol (Proventil Neb Soln) 2.5 mg NEB Q4HRRT PRN PRN Reason: Wheezing Amlodipine Besylate (Norvasc) 2.5 mg PO BEDTIME [facility] Last Admin: 02/03/17 22:02 Dose: 2.5 mg Aspirin (Halfprin) 81 mg PO DAILY [facility] Last Admin: 02/04/17 10:45 Dose: 81 mg Calcium Carbonate/Glycine (Calcium Carbonate) 600 mg PO DAILY [facility] Last Admin: 02/04/17 10:46 Dose: 600 mg Enoxaparin Sodium (Lovenox) 40 mg SUBCUT DAILY [facility] Last Admin: 02/04/17 10:44 Dose: 40 mg Ferrous Sulfate (Ferrous Sulfate) 0 mg PO DAILY [facility] Last Admin: 02/04/17 10:47 Dose: 162.5 mg Magnesium Sulfate 4 gm/ Premix 100 mls @ 50 mls/hr IV ONETIME ONE Stop: 02/04/17 13:29 Last Admin: 02/04/17 11:25 Dose: 50 mls/hr Levothyroxine Sodium (Levothyroxine) 25 mcg PO ACBREAKFAST [facility] Last Admin: 02/04/17 06:11 Dose: 25 mcg Miscellaneous Information (Remove Patch) 1 ea TRDERM DAILY [facility] Nicotine (Habitrol) 7 mg TRDERM DAILY [facility] Last Admin: 02/04/17 10:46 Dose: Not Given Cyanocobalamin/Cobamamide [Vitamin B-12 5,000 Mcg Tab Sl] 0 each PO DAILY [facility] Last Admin: 02/04/17 10:49 Dose: 0.5 each Fluticasone/ (Salmeterol 1 Puff) 0 each INH BID [facility] Last Admin: 02/04/17 09:14 Dose: 1 each Lisinopril 40 Mg Tab (Ptom) 0 each PO DAILY [facility] Last Admin: 02/04/17 10:51 Dose: 1 each Multivit-Min/Fa/Lycopene/Lut [ Centrum Silver Tablet] 1 Ta 0 each PO DAILY [facility] Last Admin: 02/04/17 10:51 Dose: 1 each Potassium Chloride (Klor-Con M20) 20 meq PO BID [facility] Last Admin: 02/04/17 10:45 Dose: 20 meq Potassium Chloride (Potassium Chloride) 60 meq PO BID [facility] Stop: 02/04/17 21:01 Last Admin: 02/04/17 11:24 Dose: 60 meq Simvastatin (Zocor) 20 mg PO DAILY [facility] Last Admin: 02/04/17 10:46 Dose: 20 mg Sodium Chloride (Saline Flush) 10 ml FLUSH ASDIRECTED PRN PRN Reason: Keep Vein Open Last Admin: 02/04/17 08:38 Dose: 10 ml Discontinued Medications Gadobenate Dimeglumine (Multihance) 15 ml IVPUSH ONETIME ONE Stop: 02/04/17 08:38 Last Admin: 02/04/17 08:40 Dose: 15 ml Gadobenate Dimeglumine (Multihance) 15 ml IVPUSH ONETIME ONE Stop: 02/04/17 08:39 Last Admin: 02/04/17 10:55 Dose: Not Given Sodium Chloride (Normal Saline) 1,000 mls @ 100 mls/hr IV ASDIRECTED [facility] Last Admin: 02/03/17 09:02 Dose: 100 mls/hr Meclizine HCl (Antivert) 25 mg PO ONETIME ONE Stop: 02/03/17 07:06 Last Admin: 02/03/17 07:22 Dose: 25 mg Methylprednisolone Sodium Succinate (Solu-Medrol) 125 mg IVPUSH ONETIME ONE Stop: 02/03/17 09:16 Last Admin: 02/03/17 09:24 Dose: 125 mg Ondansetron HCl (Zofran) 4 mg IVPUSH ONETIME ONE Stop: 02/03/17 07:06 Last Admin: 02/03/17 07:21 Dose: 4 mg - Exam Quality Assessment: DVT Prophylaxis General: Alert, Oriented, Cooperative, No Acute Distress HEENT: Pupils Equal, Pupils Reactive, EOMI Neck: Supple, Trachea Midline, No JVD Lungs: Normal Respiratory Effort Cardiovascular: Regular Rate, Bradycardia GI/Abdominal Exam: Normal Bowel Sounds, Soft, Non-Tender, No Organomegaly, No Distention (Female) Exam: Deferred Back Exam: Normal Inspection Extremities: Normal Inspection Skin: Warm Neurological: No New Focal Deficit Psy/Mental Status: Alert, Normal Affect, Normal Mood - Problem List & Annotations (1) Acute exacerbation of chronic obstructive pulmonary disease (COPD) SNOMED Code(s): 134340976 Code(s): J44.1 - CHRONIC OBSTRUCTIVE PULMONARY DISEASE W (ACUTE) EXACERBATION Status: Acute Priority: High Current Visit: No (2) Benign positional vertigo SNOMED Code(s): 282114200 Code(s): H81.10 - BENIGN PAROXYSMAL VERTIGO, UNSPECIFIED EAR Status: Acute Current Visit: No Qualifiers: Laterality: unspecified laterality Qualified Code(s): H81.10 - Benign paroxysmal vertigo, unspecified ear (3) Generalized weakness SNOMED Code(s): 63226133 Code(s): R53.1 - WEAKNESS Status: Acute Priority: High Current Visit: No (4) Hypomagnesemia SNOMED Code(s): 332755849 Code(s): E83.42 - HYPOMAGNESEMIA Status: Acute Current Visit: No (5) Hypoxia SNOMED Code(s): 183470553 Code(s): R09.02 - HYPOXEMIA Status: Acute Priority: High Current Visit : No - Problem List Review Problem List Initiated/Reviewed/Updated: Yes - My Orders Last 24 Hours: My Active Orders 02/03/17 14:58 Resuscitation Status Routine 02/03/17 15:38 Consult to Community Health Consultant [CONS] Routine 02/03/17 18:55 Up With Assistance [RC] ASDIRECTED 02/03/17 18:56 DILCIA Hose [Antiembolic Hose] [OM.PC] Routine 02/03/17 18:57 Antiembolic Devices [RC] PER UNIT ROUTINE 02/03/17 20:00 CULTURE URINE [RM] Routine 02/03/17 21:00 Patient's Own Medication [Ptom] 0 each INH BID Potassium Chloride [Klor-Con M20] 20 meq PO BID amLODIPine [Norvasc] 2.5 mg PO BEDTIME 02/04/17 06:00 Levothyroxine 25 mcg PO ACBREAKFAST 02/04/17 08:15 Ang Neck w Cont [MR] Routine 02/04/17 09:00 CV Lower Ext Arterial Duplex [US] Routine Aspirin [Halfprin] 81 mg PO DAILY Calcium Carbonate 600 mg PO DAILY Enoxaparin [Lovenox] 40 mg SUBCUT DAILY Ferrous Sulfate 0 mg PO DAILY Nicotine [Habitrol] 7 mg TRDERM DAILY Patient's Own Medication [Ptom] 0 each PO DAILY Patient's Own Medication [Ptom] 0 each PO DAILY Patient's Own Medication [Ptom] 0 each PO DAILY Simvastatin [Zocor] 20 mg PO DAILY 02/04/17 10:00 Consult to Occupational Therapy [OT Evaluation and Treatment] [CONS] Routine Consult to Physical Therapy [PT Evaluation and Treatment] [CONS] Routine 02/04/17 11:04 VL Duplex Upr Ext Art Comp [US] Routine 02/04/17 11:15 Potassium Chloride 60 meq PO BID 02/04/17 11:30 Magnesium Sulfate/Water [Magnesium Sulfate 4 GM in Water 100 ML] 4 gm Premix Bag 1 bag IV ONETIME 02/04/17 13:00 FOLIC ACID [CHEM] Routine VITAMIN B12 [CHEM] Routine 02/05/17 05:00 BMP [BASIC METABOLIC PANEL,BMP] [CHEM] DAILY CBC WITH AUTO DIFF [HEME] DAILY MAGNESIUM [CHEM] DAILY 02/05/17 09:00 Remove Patch 1 ea TRDERM DAILY - Plan Plan:: Impression: Dizziness, unspecified-->doubt vertigo-->negative evaluation today; query posterior circulation-->70% BÁRBARA/left vert art poorly visualized History of tobacco, significant risk factor for PVD, denies impact on her health HTN, asymmetrical elevated BP, consider subclavian artery stenosis Unknown lipid status Episode of bradycardia, continue telemetry PVD-->LSFA occluded with reconstitution at the popliteal artery/multilevel disease [employer]. Chronic COPD History of Lung CA History urinary Incontinence Tobacco dependence Plan: IVF-->DC Cardiology/Vascular surgery consults; await 2D echo. 2D echo, pending CAD eval; obs with telemetry-->bradycardia without BB/Ca channel blockers; risk factor modifications. Tobacco cessation counseling; Habitrol Home meds DVT/GI prophylaxis
--- NOTE | 2017-02-04 13:45 | MR ---
MR angiogram of neck Technique: Post-gadolinium MR angiogram study was obtained to the neck. Reconstructed MIP images were obtained in multiple projections. Findings: Right side: Focal stenosis is seen within the proximal right internal carotid artery narrowing the luminal diameter by about 70%. Very proximal portions of the common carotid artery on the right side appear to be narrowed but significant artifact is seen in this area and uncertain if findings are real. Other portions of the common carotid artery are normal. Other portions of the internal carotid artery on the right side are normal. Left side: Mild atheromatous irregularity is seen within the proximal left internal carotid artery slightly past the carotid bulb. This narrows the luminal diameter by less than 50%. Common carotid artery appears normal. Other portions of the internal carotid artery are normal. Vertebral vessels: Patent right vertebral artery is noted. Very poor signal is seen within the left vertebral artery which may indicate very slow flow or occlusion. Impression: 1. Very poor signal within the left vertebral artery either due to severe stenosis or occlusion. 2. Patent right vertebral artery. 3. Approximately 70% stenosis within the proximal right internal carotid artery. 4. Less than 50% stenosis within the left proximal internal carotid artery. Diagnostic code #3
--- NOTE | 2017-02-04 14:43 | US ---
Arterial ultrasound of lower extremities: Duplex and color flow imaging was obtained of the right and left common femoral, superficial femoral, popliteal, posterior tibial and peroneal arteries. Findings: Moderate amount of plaque is noted within both common femoral arteries. This causes some drop of the velocity measurements indicating moderate diffuse stenosis but no occlusion. Stent appears to be present along the left superficial femoral artery. Please correlate. Lack of flow is noted within the distal superficial femoral artery raising the possibility of stent occlusion. Posterior tibial and peroneal arteries are patent into the distal lower extremities. There is felt to be multilevel stenosis on the right side within the posterior tibial artery due to decreased velocity measurements. Impression: 1. Equivocal stent within the left superficial femoral artery. Please correlate if this is correct. There is occlusion of the distal left superficial femoral artery with reconstitution at the popliteal artery. 2. Moderate stenosis within both common femoral arteries due to plaque. 3. Probable multilevel stenosis within the right posterior tibial artery as evidenced by diffuse decreased velocity measurements. Diagnostic code #3
--- NOTE | 2017-02-04 14:53 | US ---
Bilateral upper extremity ultrasound: Duplex and color flow imaging was obtained of both common carotid, subclavian, axillary, brachial, ulnar and radial arteries. Findings: Moderate amount of plaque is noted within both common carotid arteries and subclavian arteries. Velocity measurements appear fairly symmetric between right and left sides. No focal occlusion or hemodynamic significant stenosis is appreciated. Impression: 1. Atherosclerotic change as described above. Diagnostic code #2
[2017-02-04] MEDS: AMLODIPINE 5 MG PO SCH (21:18)
[2017-02-05] MEDS: LEVOTHYROXINE 25 MCG PO SCH (06:05)
[2017-02-05] MEDS ORDERED: Remove Patch*NICOTINE TRDERM SCH (09:00)
[2017-02-05] MEDS: FLUTICASONE INH SCH (09:02)
[2017-02-05] MEDS: SALMETEROL INH SCH (09:02)
[2017-02-05] MEDS: Enoxaparin 40 MG/0.4 ML Syringe SUBCUT SCH (09:18)
[2017-02-05] MEDS: CALCIUM CARBONATE 600 MG PO SCH (09:19)
[2017-02-05] MEDS: FERROUS SULFATE 325 MG PO SCH (09:20)
[2017-02-05] MEDS: ASPIRIN 81 MG PO SCH (09:20)
[2017-02-05] MEDS: Nicotine 7 MG/24 Hr Patch TRDERM SCH (09:20)
[2017-02-05] MEDS: POTASSIUM CHLORIDE 20 MEQ PO SCH (09:21)
[2017-02-05] MEDS: COBAMAMIDE PO SCH (09:21)
[2017-02-05] MEDS: CYANOCOBALAMIN PO SCH (09:21)
[2017-02-05] MEDS: [UNRECOGNIZED DRUG - OTHER] PO SCH (09:22)
[2017-02-05] MEDS: LISINOPRIL 40 MG PO SCH (09:22)
[2017-02-05] MEDS: SIMVASTATIN 20 MG PO SCH (09:23)
[2017-02-05 11:01] VITALS: BP 152/95
--- NOTE | 2017-02-05 11:10 | PCM.DCSUM1 ---
Discharge Summary - Hospital Course Free Text/Narrative:: 86 year old female with extensive tobacco history, continues to smoke but, "doesn't inhale". The patient complained of dizziness, believed to be vertigo. This was proven false with maneuvers by PT. A posterior circulation study was done was well as UE/LE art duplex studies. 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 While getting her PAD-net study there was a greater than 3 second pause, carotid stimulation could not be excluded. However she had frequent PACs and was in sinus bradycardia without an AV lyn agent. At VT , a Holter monitor was placed for 48 hours. Follow up appts are cardiology, vascular surgery as well as her PCP. The patient showed intolerance when the tobacco cessation discussion occurred. She is not interested in any dialogue on the effects of cigarettes on her CV system because she only smokes three without inhaling. Replying, "Blah, blah, blah, whatever." Primary Dx PAM, BÁRBARA PVD, LLE-SFA; RLE-PT Tobacco dependence HTN HLD Disposition Home Activity As tolerated Diet Heart Healthy Follow Up Cardiology Vascular Surgery PCP Diagnostic 48 hour Holter Monitor - Discharge Data Discharge Date: 02/05/17 Discharge Disposition: Home, Self-Care 01 Condition: Good - Discharge Diagnosis/Problem(s) (1) Acute exacerbation of chronic obstructive pulmonary disease (COPD) SNOMED Code(s): 638191724 ICD Code: J44.1 - CHRONIC OBSTRUCTIVE PULMONARY DISEASE W (ACUTE) EXACERBATION Status: Acute Priority: High (2) Benign positional vertigo SNOMED Code(s): 401403179 ICD Code: H81.10 - BENIGN PAROXYSMAL VERTIGO, UNSPECIFIED EAR Status: Acute Qualifiers: Laterality: unspecified laterality Qualified Code(s): H81.10 - Benign paroxysmal vertigo, unspecified ear (3) Generalized weakness SNOMED Code(s): 62437722 ICD Code: R53.1 - WEAKNESS Status: Acute Priority: High (4) Hypomagnesemia SNOMED Code(s): 695709585 ICD Code: E83.42 - HYPOMAGNESEMIA Status: Acute (5) Hypoxia SNOMED Code(s): 139362379 ICD Code: R09.02 - HYPOXEMIA Status: Acute Priority: High - Patient Summary/Data Consults: Consultations 02/03/17 15:38 Consult to Coding And Reimbursement Specialist [CONS] Routine 02/04/17 10:00 Consult to Occupational Therapy [OT Evaluation and Treatment] [CONS] Routine Consult to Physical Therapy [PT Evaluation and Treatment] [CONS] Routine - Patient Instructions Diet: Heart Healthy Diet Activity: No Strenuous Activities Showering/Bathing: May Shower Notify Provider of: Nausea and/or Vomiting - Discharge Plan Prescriptions/Med Rec: Magnesium Oxide [Magnesium] 400 mg PO BID #30 tablet Nicotine [Habitrol] 7 mg TRDERM DAILY #30 patch Home Medications: Home Meds Aspirin [Ecotrin] 81 mg PO DAILY 11/18/16 [History] Ferrous Sulfate [Iron] 0.5 tab PO DAILY 11/18/16 [History] Levothyroxine 25 mcg PO ACBREAKFAST 11/18/16 [History] Lisinopril 40 mg PO DAILY 11/18/16 [History] Potassium Chloride 20 meq PO BID 11/18/16 [History] Simvastatin [Zocor] 20 mg PO BEDTIME 11/18/16 [History] amLODIPine [Norvasc] 2.5 mg PO DAILY 11/18/16 [History] Albuterol Sulfate 1 inhalation NEB TID PRN 12/07/16 [History] Albuterol Sulfate [Proair Hfa] 1 puff INH BID PRN 12/07/16 [History] Cyanocobalamin/Cobamamide [Vitamin B-12 5,000 Mcg Tab Sl] 0.5 tab PO DAILY 12/07 [History] Fluticasone/Salmeterol [Advair 250-50 Diskus] 1 puff INH BID 12/07/16 [History] Multivit-Min/FA/Lycopene/Lut [Centrum Silver Tablet] 1 tab PO DAILY 12/07/16 [ History] Calcium Carbonate [Calcium] 600 mg PO DAILY 02/03/17 [History] Triamterene/Hydrochlorothiazid [Triamterene-HCTZ 37.5-25 MG] 0.5 tab PO DAILY [History] Magnesium Oxide [Magnesium] 400 mg PO BID #30 tablet 02/05/17 [Rx] Nicotine [Habitrol] 7 mg TRDERM DAILY #30 patch 02/05/17 [Rx] Patient Handouts: Smoking Cessation, Tips for Success, [id number], Vertigo, [id number], Dizziness, [id number] Forms: ED Department Discharge Referrals: Abhijeet Rodgers MD, PhD [Consulting Physician] - Audie Muhammad MD [Ordering Only Provider] - 02/14/17 10:00 am (Please follow up with Dr. Muhammad on at 1430. ) - Discharge Summary/Plan Comment DC Time >30 min.: No - General Info Date of Service: 02/03/17 Functional Status: Reports: Tolerating Diet, Ambulating, Other (Actively smoking ) - Review of Systems General: Reports: No Symptoms HEENT: Reports: No Symptoms Pulmonary: Reports: No Symptoms Cardiovascular: Reports: No Symptoms Gastrointestinal: Reports: No Symptoms Genitourinary: Reports: No Symptoms Musculoskeletal: Reports: No Symptoms Skin: Reports: No Symptoms Neurological: Reports: No Symptoms Psychiatric: Reports: No Symptoms - Patient Data Vitals - Most Recent: Last Vital Signs Temp 36.4 C 02/05/17 09:13 Pulse 55 L 02/05/17 09:13 Resp 13 02/05/17 09:13 BP 152/95 H 02/05/17 09:13 Pulse Ox 95 02/05/17 09:13 Weight - Most Recent: 45.495 kg I&O - Last 24 hours: Intake & Output 02/04/17 02/05/17 02/05/17 22:59 06:59 14:59 Intake Total 1440 250 Output Total 1150 Balance 290 250 Lab Results - Last 24 hrs: Laboratory Results - last 24 hr 02/04/17 02/05/17 02/05/17 Range/Units 14:11 06:30 06:30 WBC 4.08 (3.98-10.04) K/mm3 RBC 2.92 L (3.98-5.22) M/mm3 Hgb 9.5 L (11.2-15.7) gm/L Hct 30.1 L (34.1-44.9) % MCV 103.1 H (79.4-94.8) fl MCH 32.5 H (25.6-32.2) pg MCHC 31.6 L (32.2-35.5) g/dl RDW Std Deviation 44.8 (36.4-46.3) fL Plt Count 128 L (182-369) K/mm3 MPV 10.3 (9.4-12.3) fl Neut % (Auto) 69.6 (34.0-71.1) % Lymph % (Auto) 19.9 (19.3-51.7) % Taney % (Auto) 8.8 (4.7-12.5) % Eos % (Auto) 1.5 (0.7-5.8) Baso % (Auto) 0.0 L (0.1-1.2) % Neut # (Auto) 2.84 (1.56-6.13) K/mm3 Lymph # (Auto) 0.81 L (1.18-3.74) K/mm3 Taney # (Auto) 0.36 (0.24-0.36) K/mm3 Eos # (Auto) 0.06 (0.04-0.36) K/mm3 Baso # (Auto) 0.00 L (0.01-0.08) K/mm3 Sodium 138 (136-145) mEq/L Potassium 4.6 (3.5-5.1) mEq/L Chloride 103 (98-107) mEq/L Carbon Dioxide 28 (21-32) mEq/L Anion Gap 11.6 (5-15) BUN 15 (7-18) mg/dL Creatinine 0.8 (0.55-1.02) mg/dL Est Cr Clr Drug Dosing 36.25 mL/min Estimated GFR (MDRD) > 60 (>60) mL/min BUN/Creatinine Ratio 18.8 H (14-18) Glucose 85 (83-115) mg/dL Calcium 8.4 L (8.5-10.1) mg/dL Magnesium 2.0 (1.8-2.4) mg/dl Vitamin B12 1631 H (193-986) pg/ml Folate 55.3 (8.6-58.9) ng/mL MARIO Results - Last 24 hrs: Microbiology 02/03/17 20:00 Urine Culture - Final Urine, Clean Catch MIXED [place] SUGGESTIVE OF CONTAMINATION. Med Orders - Current: Current Medications Albuterol (Proventil Hfa) 0 gm INH BID PRN PRN Reason: Wheezing Albuterol (Proventil Neb Soln) 2.5 mg NEB Q4HRRT PRN PRN Reason: Wheezing Amlodipine Besylate (Norvasc) 2.5 mg PO BEDTIME [facility] Last Admin: 02/04/17 21:18 Dose: 2.5 mg Aspirin (Halfprin) 81 mg PO DAILY [facility] Last Admin: 02/05/17 09:20 Dose: 81 mg Calcium Carbonate/Glycine (Calcium Carbonate) 600 mg PO DAILY [facility] Last Admin: 02/05/17 09:19 Dose: 600 mg Enoxaparin Sodium (Lovenox) 40 mg SUBCUT DAILY [facility] Last Admin: 02/05/17 09:18 Dose: 40 mg Ferrous Sulfate (Ferrous Sulfate) 0 mg PO DAILY [facility] Last Admin: 02/05/17 09:20 Dose: 162.5 mg Levothyroxine Sodium (Levothyroxine) 25 mcg PO ACBREAKFAST [facility] Last Admin: 02/05/17 06:05 Dose: 25 mcg Miscellaneous Information (Remove Patch) 1 ea TRDERM DAILY [facility] Last Admin: 02/05/17 09:23 Dose: Not Given Nicotine (Habitrol) 7 mg TRDERM DAILY [facility] Last Admin: 02/05/17 09:20 Dose: Not Given Cyanocobalamin/Cobamamide [Vitamin B-12 5,000 Mcg Tab Sl] 0 each PO DAILY [facility] Last Admin: 02/05/17 09:21 Dose: 2,500 each Fluticasone/ (Salmeterol 1 Puff) 0 each INH BID [facility] Last Admin: 02/05/17 09:02 Dose: 1 each Lisinopril 40 Mg Tab (Ptom) 0 each PO DAILY [facility] Last Admin: 02/05/17 09:22 Dose: 1 each Multivit-Min/Fa/Lycopene/Lut [ Centrum Silver Tablet] 1 Ta 0 each PO DAILY [facility] Last Admin: 02/05/17 09:22 Dose: 1 each Potassium Chloride (Klor-Con M20) 20 meq PO BID [facility] Last Admin: 02/05/17 09:21 Dose: 20 meq Simvastatin (Zocor) 20 mg PO DAILY [facility] Last Admin: 02/05/17 09:23 Dose: 20 mg Sodium Chloride (Saline Flush) 10 ml FLUSH ASDIRECTED PRN PRN Reason: Keep Vein Open Last Admin: 02/04/17 08:38 Dose: 10 ml Discontinued Medications Gadobenate Dimeglumine (Multihance) 15 ml IVPUSH ONETIME ONE Stop: 02/04/17 08:38 Last Admin: 02/04/17 08:40 Dose: 15 ml Gadobenate Dimeglumine (Multihance) 15 ml IVPUSH ONETIME ONE Stop: 02/04/17 08:39 Last Admin: 02/04/17 10:55 Dose: Not Given Sodium Chloride (Normal Saline) 1,000 mls @ 100 mls/hr IV ASDIRECTED MEKA Last Admin: 02/03/17 09:02 Dose: 100 mls/hr Magnesium Sulfate 4 gm/ Premix 100 mls @ 50 mls/hr IV ONETIME ONE Stop: 02/04/17 13:29 Last Admin: 02/04/17 11:25 Dose: 50 mls/hr Meclizine HCl (Antivert) 25 mg PO ONETIME ONE Stop: 02/03/17 07:06 Last Admin: 02/03/17 07:22 Dose: 25 mg Methylprednisolone Sodium Succinate (Solu-Medrol) 125 mg IVPUSH ONETIME ONE Stop: 02/03/17 09:16 Last Admin: 02/03/17 09:24 Dose: 125 mg Ondansetron HCl (Zofran) 4 mg IVPUSH ONETIME ONE Stop: 02/03/17 07:06 Last Admin: 02/03/17 07:21 Dose: 4 mg Potassium Chloride (Potassium Chloride) 60 meq PO BID [facility] Stop: 02/04/17 21:01 Last Admin: 02/04/17 21:17 Dose: 60 meq - Exam Quality Assessment: Reports: DVT Prophylaxis General: Reports: Alert, Oriented, Cooperative, No Acute Distress HEENT: Reports: Pupils Equal, Pupils Reactive, EOMI Neck: Reports: Supple, Trachea Midline Lungs: Reports: Normal Respiratory Effort, Decreased Breath Sounds, Rhonchi Cardiovascular: Reports: Regular Rate, Bradycardia GI/Abdominal Exam: Normal Bowel Sounds, Soft, Non-Tender, No Organomegaly, No Distention (Female) Exam: Deferred Rectal (Female) Exam: Deferred Back Exam: Reports: Normal Inspection Extremities: Normal Inspection Skin: Reports: Warm, Dry Neurological: Reports: No New Focal Deficit Psy/Mental Status: Reports: Alert *Q Meaningful Use (DIS) - VTE *Q VTE Criteria *Q: - Stroke *Q Stroke Criteria *Q: - AMI *Q AMI Criteria *Q:
[2017-02-05] MEDS ORDERED: Simvastatin 10 MG Tab PO SCH (11:30)
[2017-02-06] MEDS ORDERED: TRIAMTERENE PO SCH (09:00)
[2017-02-06] MEDS ORDERED: HYDROCHLOROTHIAZIDE PO SCH (09:00)
[2017-02-06] MEDS ORDERED: SIMVASTATIN 20 MG PO SCH (21:00)
== END 2017-02-05 13:10 | disposition home or self-care (01) ==
LOC: JD.ED 06:33 → JD.MS 09:55
PROVIDERS: ADMIT Internal Medicine Cardiovascular Disease; ATTEND Internal Medicine Cardiovascular Disease
DX: R42 Dizziness and giddiness (principal); J44.1 Chronic obstructive pulmonary disease with (acute) exacerbation; R53.1 Weakness; E83.42 Hypomagnesemia; R09.02 Hypoxemia; E78.00 Pure hypercholesterolemia, unspecified; I10 Essential (primary) hypertension; D64.9 Anemia, unspecified; E53.8 Deficiency of other specified B group vitamins; F17.210 Nicotine dependence, cigarettes, uncomplicated; Z85.118 Personal history of other malignant neoplasm of bronchus and lung; Z87.440 Personal history of urinary (tract) infections; Z88.0 Allergy status to penicillin; Z88.6 Allergy status to analgesic agent; Z88.8 Allergy status to other drugs, medicaments and biological substances; Z79.82 Long term (current) use of aspirin; Z79.51 Long term (current) use of inhaled steroids; Z79.899 Other long term (current) drug therapy; Z98.49 Cataract extraction status, unspecified eye; Z96.649 Presence of unspecified artificial hip joint; Z90.49 Acquired absence of other specified parts of digestive tract; Z90.710 Acquired absence of both cervix and uterus; Z98.890 Other specified postprocedural states
CPT/HCPCS: 36415; 70450; 70548; 80048; 80053; 80061; 81001; 82607; 82746; 83735; 84484; 85025; 85652; 86140; 87086; 93005; 93306; 93925; 93930; 94640; 96361; 96365; 96366; 96372; 96375; 97162; 97165; 97530; 99285; A9270; A9577; G0378; J1650; J2405; J2930; J3475; J7040; J7050; 96374

== ENCOUNTER 2017-02-11 07:51 | Emergency (ER) | payer MEDICARE, BC ==
[2017-02-11 08:00] VITALS: BP 141/51
--- NOTE | 2017-02-11 08:52 | EDM.PDOC ---
ED HPI GENERAL MEDICAL PROBLEM - General Chief Complaint: Respiratory Problem Stated Complaint: [facility] Time Seen by Provider: 02/11/17 08:10 Source of Information: Reports: Patient, Family (Daughter), Old Records, RN Notes Reviewed History Limitations: Reports: Physical Impairment (Patient very [place] - much of history provided by her daughter) - History of Present Illness INITIAL COMMENTS - FREE TEXT/NARRATIVE: The patient states that she woke with shortness of breath around 02:00 or 04:00 this morning. No orthopnea. She believes that she has been wheezing. She has not had a fever recently, but was told by EMS that she had a fever. Her temperature was 99.3 here in the ED. No recent cough. No recent chest pain or palpitations. The patient has had similar symptoms in the past, and, according to the patient' s daughter, is always diagnosed with pneumonia. Reviewing prior medical records , however, finds that the patient was seen in this ED on 05/12/2016, 06/26/2016, , and 12/07/2016, all for either a cough with wheezing or dyspnea, and in each case, the chest radiograph found only a right upper lobe parenchymal density or nodule, but no infiltrate suggestive of pneumonia. The patient has a history of both COPD and lung cancer (the patient does not know what type), stage II, status post chemotherapy and radiation therapy, and is currently in remission. She does not wear oxygen during the day, but wears 3 L per nasal cannula at night. She may increase her oxygen based on symptoms. She is prescribed albuterol and Advair, but does not take them regularly, and did not use her albuterol this morning. The patient has a long history of smoking, and continues to smoke a few cigarettes per day. The patient's PCP is Dr. Romero. 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 Treatments - Related Data Allergies Allergy/AdvReac Type Severity Reaction Status Date / Time celecoxib [From Celebrex] Allergy Cannot Verified 02/11/17 08:00 Remember lovastatin [From Mevacor] Allergy Cannot Verified 02/11/17 08:00 Remember Penicillins Allergy Cannot Verified 02/11/17 08:00 Remember prednisone Allergy Cannot Verified 02/11/17 08:00 Remember Home Meds: Home Meds Aspirin [Ecotrin] 81 mg PO DAILY 11/18/16 [History] Ferrous Sulfate [Iron] 0.5 tab PO DAILY 11/18/16 [History] Levothyroxine 25 mcg PO ACBREAKFAST 11/18/16 [History] Lisinopril 40 mg PO DAILY 11/18/16 [History] Potassium Chloride 20 meq PO BID 11/18/16 [History] Simvastatin [Zocor] 20 mg PO BEDTIME 11/18/16 [History] amLODIPine [Norvasc] 2.5 mg PO DAILY 11/18/16 [History] Albuterol Sulfate 1 inhalation NEB TID PRN 12/07/16 [History] Albuterol Sulfate [Proair Hfa] 1 puff INH BID PRN 12/07/16 [History] Cyanocobalamin/Cobamamide [Vitamin B-12 5,000 Mcg Tab Sl] 0.5 tab PO DAILY 12/07 [History] Fluticasone/Salmeterol [Advair 250-50 Diskus] 1 puff INH BID 12/07/16 [History] Multivit-Min/FA/Lycopene/Lut [Centrum Silver Tablet] 1 tab PO DAILY 12/07/16 [ History] Calcium Carbonate [Calcium] 600 mg PO DAILY 02/03/17 [History] Triamterene/Hydrochlorothiazid [Triamterene-HCTZ 37.5-25 MG] 0.5 tab PO DAILY [History] Magnesium Oxide [Magnesium] 400 mg PO BID #30 tablet 02/05/17 [Rx] Past Medical History HEENT History: Reports: Impaired Vision Other HEENT History: wears eyeglasses Cardiovascular History: Reports: High Cholesterol, Hypertension, PVD Respiratory History: Reports: COPD Gastrointestinal History: Reports: GERD 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: 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) Endocrine/Metabolic History: Reports: Hypothyroidism, Osteoporosis Hematologic History: Reports: Anemia, B12 Deficiency Oncologic (Cancer) History: Reports: Lung - Infectious Disease History Infectious Disease History: Reports: Chicken Pox, Measles, Mumps - Past Surgical History HEENT Surgical History: Reports: Cataract Surgery, Tonsillectomy, Other (See Below) (Left Port-A-Cath) GI Surgical History: Reports: Appendectomy, Colonoscopy, EGD Female Surgical History: Reports: Hysterectomy, Salpingo-Oophorectomy Musculoskeletal Surgical History: Reports: Hip Replacement (left) Social & Family History - Family History Family Medical History: Noncontributory - Tobacco Use Smoking Status *Q: Current Every Day Smoker Years of Tobacco use: 69 Packs/Tins Daily: 0.2 Packs/Tins Daily Comment: Down from > 1 ppd - Caffeine Use Caffeine Use: Reports: Coffee, Soda, Tea Caffeine Use Comment: couple cups daily - Alcohol Use Alcohol Use History: Yes Days Per Week of Alcohol Use: 7 Number of Drinks Per Day: 1 Total Drinks Per Week: 7 Alcohol Use Frequency: Daily - Recreational Drug Use Recreational Drug Use: No - Living Situation & Occupation Living situation: Reports: , with Significant Other Occupation: Retired ED ROS GENERAL - Review of Systems Review Of Systems: See Below Constitutional: Reports: No Symptoms HEENT: Reports: No Symptoms Respiratory: Reports: No Symptoms Cardiovascular: Reports: No Symptoms Endocrine: Reports: No Symptoms GI/Abdominal: Reports: No Symptoms : Reports: No Symptoms Musculoskeletal: Reports: No Symptoms Skin: Reports: No Symptoms Neurological: Reports: No Symptoms Psychiatric: Reports: No Symptoms Hematologic/Lymphatic: Reports: No Symptoms Immunologic: Reports: No Symptoms ED EXAM, GENERAL - Physical Exam Exam: See Below Exam Limited By: No Limitations General Appearance: Alert, WD/WN, No Apparent Distress Eye Exam: Bilateral Eye: Normal Inspection Ears: Normal External Exam, Hearing Grossly Normal Nose: Normal Inspection, No Blood Throat/Mouth: Normal Inspection, Normal Lips, Normal Voice, No Airway Compromise Head: Atraumatic, Normocephalic Neck: Normal Inspection, Full Range of Motion Respiratory/Chest: No Accessory Muscle Use, Decreased Breath Sounds, Crackles ( Throughout lung diop, greater on the right than left). No: Wheezing, Prolonged Expiration Cardiovascular: Normal Peripheral Pulses, Regular Rate, Rhythm, No Edema, No Gallop, No JVD, No Murmur, No Rub Peripheral Pulses: 4+: Radial (L), Radial (R) GI/Abdominal: Normal Bowel Sounds, Soft, Non-Tender, No Organomegaly, No Distention, No Abnormal Bruit, No Mass (Female) Exam: Deferred Rectal (Female) Exam: Deferred Back Exam: Normal Inspection, Full Range of Motion, NT Extremities: Normal Inspection, Normal Range of Motion, No Pedal Edema, Normal Capillary Refill Neurological: Alert, Oriented, Normal Cognition, No Motor/Sensory Deficits Psychiatric: Normal Affect Skin Exam: Warm, Dry, Intact, Normal Color, No Rash EKG INTERPRETATION EKG Date: 02/11/17 Time: 08:52 Rhythm: NSR Rate (Beats/Min): 78 Warren: LAD-Left Warren Deviation P-Wave: Present (numerous PACs) QRS: Normal ST-T: Normal QT: Normal Comparison: No Change EKG Interpretation Comments: One PVC Course - Vital Signs Last Recorded V/S: Last Vital Signs Temp 37.4 C 02/11/17 07:57 Pulse 80 02/11/17 07:57 Resp 20 02/11/17 07:57 BP 141/51 H 02/11/17 07:57 Pulse Ox 98 02/11/17 12:08 - Orders/Labs/Meds Orders: Active Orders 24 hr Category Date Time Status EKG Documentation Completion [RC] STAT Care 02/11/17 08:43 Active RT Aerosol Therapy [RC] ASDIRECTED Care 02/11/17 11:53 Active CULTURE BLOOD [BC] Stat Lab 02/11/17 09:05 Received CULTURE BLOOD [BC] Stat Lab 02/11/17 09:20 Received Sodium Chloride 0.9% [Normal Saline] 1,000 ml Med 02/11/17 10:45 Active IV ASDIRECTED Sodium Chloride 0.9% [Normal Saline] 100 ml Med 02/11/17 10:45 Active IV ASDIRECTED Blood Culture x2 Reflex Set [OM.PC] Stat Oth 02/11/17 08:43 Ordered Medication Orders Sodium Chloride (Normal Saline) 1,000 mls @ 100 mls/hr IV ASDIRECTED MEKA Last Admin: 02/11/17 10:43 Dose: 100 mls/hr Sodium Chloride (Normal Saline) 100 mls @ 60 mls/hr IV ASDIRECTED MEKA Last Admin: 02/11/17 11:03 Dose: 60 mls/hr Labs: Laboratory Tests 02/11/17 02/11/17 02/11/17 Range/Units 08:43 09:05 09:05 WBC (3.98-10.04) K/mm3 RBC (3.98-5.22) M/mm3 Hgb (11.2-15.7) gm/L Hct (34.1-44.9) % MCV (79.4-94.8) fl MCH (25.6-32.2) pg MCHC (32.2-35.5) g/dl RDW Std Deviation (36.4-46.3) fL Plt Count (182-369) K/mm3 MPV (9.4-12.3) fl Neutrophils % (Manual) (40-60) % Band Neutrophils % (0-10) % Lymphocytes % (Manual) (20-40) % Atypical Lymphs % % Monocytes % (Manual) (2-10) % Eosinophils % (Manual) (0.7-5.8) % Basophils % (Manual) (0.1-1.2) Platelet Estimate RBC Morph Comment PT 10.3 (8.0-13.0) SECONDS INR 0.95 APTT 27 (22-36) SECONDS D-Dimer, Quantitative 1.63 H (0.19-0.59) mg/L Puncture Site Rt radial ABG pH 7.43 (7.35-7.45) ABG pCO2 45.2 H (35.0-45.0) mmHg ABG pO2 55.0 L (80.0-100.0) mmHg ABG HCO3 29.2 H (22.0-26.0) meq/L ABG O2 Saturation 87.4 L (96.0-97.0) % ABG Base Excess 4.7 H (-2-2.0) Navdeep Test Positive A-a Gradient 68 mmHg O2 Delivery Device Nasal cannula Oxygen Flow Rate 2.0 FiO2 28.00 (21.00-100.00) % Sodium 133 L (136-145) mEq/L Potassium 3.3 L (3.5-5.1) mEq/L Chloride 95 L (98-107) mEq/L Carbon Dioxide 30 (21-32) mEq/L Anion Gap 11.3 (5-15) BUN 18 (7-18) mg/dL Creatinine 0.9 (0.55-1.02) mg/dL Est Cr Clr Drug Dosing 32.77 mL/min Estimated GFR (MDRD) 59 (>60) mL/min BUN/Creatinine Ratio 20.0 H (14-18) Glucose 120 H (83-115) mg/dL Lactic Acid (0.4-2.0) mmol/L Calcium 9.1 (8.5-10.1) mg/dL Total Bilirubin 0.6 (0.2-1.0) mg/dL AST 23 (15-37) U/L ALT 16 (14-59) U/L Alkaline Phosphatase 61 (46-116) U/L Troponin I < 0.017 (0.00-0.056) ng/mL NT-Pro-B Natriuret Pep 254 (0-450) pg/mL Total Protein 6.8 (6.4-8.2) g/dl Albumin 3.7 (3.4-5.0) g/dl Globulin 3.1 gm/dL Albumin/Globulin Ratio 1.2 (1-2) 02/11/17 02/11/17 Range/Units 09:05 09:20 WBC 9.36 (3.98-10.04) K/mm3 RBC 3.26 L (3.98-5.22) M/mm3 Hgb 10.6 L (11.2-15.7) gm/L Hct 32.9 L (34.1-44.9) % MCV 100.9 H (79.4-94.8) fl MCH 32.5 H (25.6-32.2) pg MCHC 32.2 (32.2-35.5) g/dl RDW Std Deviation 43.0 (36.4-46.3) fL Plt Count 128 L (182-369) K/mm3 MPV 10.4 (9.4-12.3) fl Neutrophils % (Manual) 66 H (40-60) % Band Neutrophils % 19 H (0-10) % Lymphocytes % (Manual) 10 L (20-40) % Atypical Lymphs % 0 % Monocytes % (Manual) 5 (2-10) % Eosinophils % (Manual) 0 L (0.7-5.8) % Basophils % (Manual) 0 L (0.1-1.2) Platelet Estimate See note RBC Morph Comment Normal PT (8.0-13.0) SECONDS INR APTT (22-36) SECONDS D-Dimer, Quantitative (0.19-0.59) mg/L Puncture Site ABG pH (7.35-7.45) ABG pCO2 (35.0-45.0) mmHg ABG pO2 (80.0-100.0) mmHg ABG HCO3 (22.0-26.0) meq/L ABG O2 Saturation (96.0-97.0) % ABG Base Excess (-2-2.0) Navdeep Test A-a Gradient mmHg O2 Delivery Device Oxygen Flow Rate FiO2 (21.00-100.00) % Sodium (136-145) mEq/L Potassium (3.5-5.1) mEq/L Chloride (98-107) mEq/L Carbon Dioxide (21-32) mEq/L Anion Gap (5-15) BUN (7-18) mg/dL Creatinine (0.55-1.02) mg/dL Est Cr Clr Drug Dosing mL/min Estimated GFR (MDRD) (>60) mL/min BUN/Creatinine Ratio (14-18) Glucose (83-115) mg/dL Lactic Acid 1.3 (0.4-2.0) mmol/L Calcium (8.5-10.1) mg/dL Total Bilirubin (0.2-1.0) mg/dL AST (15-37) U/L ALT (14-59) U/L Alkaline Phosphatase (46-116) U/L Troponin I (0.00-0.056) ng/mL NT-Pro-B Natriuret Pep (0-450) pg/mL Total Protein (6.4-8.2) g/dl Albumin (3.4-5.0) g/dl Globulin gm/dL Albumin/Globulin Ratio (1-2) Meds: Medications Generic Name Dose Route Start Last Admin Trade Name Freq PRN Reason Stop Dose Admin Sodium Chloride 1,000 mls @ 100 mls/hr 02/11/17 10:45 02/11/17 10:43 Normal Saline IV 100 mls/hr ASDIRECTED MEKA Administration Sodium Chloride 100 mls @ 60 mls/hr 02/11/17 10:45 02/11/17 11:03 Normal Saline IV 60 mls/hr ASDIRECTED MEKA Administration Discontinued Medications Generic Name Dose Route Start Last Admin Trade Name Freq PRN Reason Stop Dose Admin Albuterol/Ipratropium 3 ml 02/11/17 11:52 02/11/17 12:08 Duoneb 3.0-0.5 Mg/3 Ml NEB 02/11/17 11:53 3 ml ONETIME ONE Administration Iopamidol 100 ml 02/11/17 10:39 02/11/17 11:02 Isovue-370 (76%) IVPUSH 02/11/17 10:40 100 ml ONETIME ONE Administration Sodium Chloride 10 ml 02/11/17 10:39 02/11/17 11:02 Saline Flush FLUSH 02/11/17 10:40 10 ml ONETIME ONE Administration - Re-Assessments/Exams Free Text/Narrative Re-Assessment/Exam: 02/11/17 09:47 Two-view chest radiograph appears to be grossly unremarkable. Cardiac silhouette is within normal limits. No pulmonary vascular congestion. No pleural effusions. No focal infiltrate. No pneumothorax. Hyperinflation and bilateral diaphragmatic flattening, consistent with COPD, noted. Small right upper lobe pulmonary nodule, noted, unchanged from chest radiograph 12/07/2016. Left Port-A-Cath noted. Formal read per the Radiologist pending. 02/11/17 10:26 The patient's CBC returns with a WBC count normal at 9.36, but with 19% bandemia. Bandemia without leukocytosis suggests bone inflammation, or possibly CML or AML. The patient has very mild anemia, actually above her baseline. She has mild thrombocytopenia, at her baseline. She has mild hyponatremia of 133, and mild hypokalemia of 3.3, both new from 02/05/2017. The remainder of her CMP is unremarkable. Her D-dimer is mildly elevated at 1.63. While she has a known history of lung cancer, the only lung abnormality she has, other than COPD changes, is an unchanged RUL pulmonary nodule, which would not be expected to cause an increase in her d-dimer. She is not have renal insufficiency. Her age may account for her elevated D-dimer, however, particularly because I do not have an explanation for the audible crackles that she has, I am going to proceed with a CT angiogram of the chest. 02/11/17 11:51 CT angiogram of the chest is read by Dr. Markham as: 1. No findings of pulmonary embolism. 2. 1.1 cm nodule showing spiculation within the right upper lung which is highly suspicious for neoplastic nodule. 3. Other incidental findings as noted above. 02/11/17 12:35 The patient was given a DuoNeb, and reports significant improvement in her symptoms, as well as a rise in her oxygen saturation to 98% on 2 L per nasal cannula. This suggests that her symptoms were likely due to a mild COPD exacerbation, despite her ABG being unremarkable. Test results discussed with the patient, her significant other, and her daughter. Admission was offered, but declined. I am recommending that the patient take her albuterol by nebulizer as needed for shortness of breath and wheezing with or without a cough. I am also recommending that the patient acquire an oxygen saturation device, to determine if she would benefit from supplemental oxygen, and how much. The patient appears to understand. Departure - Departure Time of Disposition: 12:38 Disposition: Home, Self-Care 01 Condition: Good Clinical Impression: COPD exacerbation Lung cancer Qualifiers: Laterality: unspecified laterality Lung location: unspecified part of lung Qualified Code(s): C34.90 - Malignant neoplasm of unspecified part of unspecified bronchus or lung - Discharge Information Referrals: Duncan Romero MD [Primary Care Provider] - Forms: ED Department Discharge Additional Instructions: You were seen in the emergency room for shortness of breath and wheezing. Workup in the ER included blood work, 2 sets of blood cultures, an arterial blood gas, an ECG, a chest x-ray, and a CT angiogram of her chest. Your workup was, for the most part, unremarkable. You do not have pneumonia. You do not have a blood clot in your lungs. You are not suffering from congestive heart failure. Your symptoms significantly improved following a DuoNeb, indicating that your shortness of breath was due to a mild COPD exacerbation. Admission to the hospital was offered, but declined. We recommend that you take an albuterol neb as often as necessary to treat shortness of breath and wheezing, with or without a cough. If you require an albuterol neb more often than every 4 hours, you should be seen by a doctor. We recommend that you purchase a finger oxygen sensor device, to determine your oxygen level at home. You should wear supplemental oxygen to keep your oxygen saturation between 89% and 92%. We recommend that you notify the office of Dr. Romero of your ER visit. If any other problems, please do not hesitate to return to the ER. - My Orders Last 24 Hours: My Active Orders 02/11/17 08:43 EKG Documentation Completion [RC] STAT Blood Culture x2 Reflex Set [OM.PC] Stat 02/11/17 09:05 CULTURE BLOOD [BC] Stat 02/11/17 09:20 CULTURE BLOOD [BC] Stat 02/11/17 10:45 Sodium Chloride 0.9% [Normal Saline] 1,000 ml IV ASDIRECTED Sodium Chloride 0.9% [Normal Saline] 100 ml IV ASDIRECTED 02/11/17 11:53 RT Aerosol Therapy [RC] ASDIRECTED - Assessment/Plan Last 24 Hours: My Active Orders 02/11/17 08:43 EKG Documentation Completion [RC] STAT Blood Culture x2 Reflex Set [OM.PC] Stat 02/11/17 09:05 CULTURE BLOOD [BC] Stat 02/11/17 09:20 CULTURE BLOOD [BC] Stat 02/11/17 10:45 Sodium Chloride 0.9% [Normal Saline] 1,000 ml IV ASDIRECTED Sodium Chloride 0.9% [Normal Saline] 100 ml IV ASDIRECTED 02/11/17 11:53 RT Aerosol Therapy [RC] ASDIRECTED
[2017-02-11] MEDS ORDERED: Iopamidol 755 Mg/ML 100 ML Bottle IVPUSH ONE (10:39)
[2017-02-11] MEDS: Sodium Chloride 0.9% 10 ML Syringe FLUSH ONE ×2 (10:44→11:02)
[2017-02-11] MEDS ORDERED: Sodium Chloride 0.9% 1,000 ML IV SCH (10:45)
[2017-02-11] MEDS ORDERED: Sodium Chloride 0.9% 100 ML IV SCH (10:45)
--- NOTE | 2017-02-11 11:16 | CR ---
Chest: Two views of the chest were obtained. Comparison: Prior chest x-ray of 12/07/16. Nodular density is seen within the right upper lung. This is equivocally increased in size from previous exam and CT exam is recommended to further evaluate. Lung markings are mildly increased which appear chronic. Lungs otherwise are clear. Infusion port seen from the left side. Heart size and mediastinum are normal. Impression: 1. Nodular density within the right upper lung slightly more prominent than on prior exam. Chest CT recommended to see if this represents a pulmonary nodule. 2. Emphysematous change and other chronic findings. Diagnostic code #9
--- NOTE | 2017-02-11 11:26 | CT ---
CT chest Technique: Multiple axial sections through the chest were obtained. Intravenous contrast was utilized. Study has been performed as a pulmonary angiogram protocol. Findings: Pulmonary arteries are well-opacified. No filling defects are seen to indicate pulmonary embolism. Atherosclerotic calcification is noted within the aorta. Ascending aorta is mildly ectatic at 3.2 cm in AP dimension. Mild coronary artery calcification is seen. Mediastinum and hilar regions show no adenopathy or mass. Pulmonary nodule identified within the right upper lung with spiculation. This likely is neoplastic in etiology measuring approximately 1.1 cm. Parenchymal density seen adjacent to the mediastinum within the medial right upper lung having the appearance of scarring. Lungs otherwise are clear. Compression deformity seen within the lower thoracic spine which is felt to be old. Impression: 1. No findings of pulmonary embolism. 2. 1.1 cm nodule showing spiculation within the right upper lung which is highly suspicious for neoplastic nodule. 3. Other incidental findings as noted above. Diagnostic code #9
[2017-02-11] MEDS ORDERED: Albuterol/Ipratropium 3.0-0.5 MG/3 ML Neb Soln NEB ONE (11:52)
== END 2017-02-11 13:44 | disposition home or self-care (01) ==
LOC: SUPCPDRO 07:51 → JD.ED 07:51
DX: J44.1 Chronic obstructive pulmonary disease with (acute) exacerbation (principal); C34.90 Malignant neoplasm of unspecified part of unspecified bronchus or lung; E78.00 Pure hypercholesterolemia, unspecified; I10 Essential (primary) hypertension; E03.9 Hypothyroidism, unspecified; F17.210 Nicotine dependence, cigarettes, uncomplicated; Z88.0 Allergy status to penicillin; Z88.8 Allergy status to other drugs, medicaments and biological substances
CPT/HCPCS: 36415; 36600; 71020; 71275; 80053; 82803; 83605; 83880; 84484; 85025; 85379; 85610; 85730; 87040; 93005; 94640; 96360; 96361; 99285; J7030; J7040; J7050; Q9967

== ENCOUNTER 2017-03-15 06:11 | Inpatient (IN) | payer MEDICARE, BC ==
[2017-03-15] MEDS ORDERED: Albuterol/Ipratropium 3.0-0.5 MG/3 ML Neb Soln NEB ONE ×4 (06:41→09:19)
[2017-03-15] MEDS ORDERED: methylPREDNISolone Sodium Succinate 125 MG/2 ML SDV IVPUSH ONE (07:35)
--- NOTE | 2017-03-15 07:45 | EDM.PDOC ---
ED HPI GENERAL MEDICAL PROBLEM - General Chief Complaint: Respiratory Problem Stated Complaint: [facility] Time Seen by Provider: 03/15/17 07:06 Source of Information: Reports: Patient History Limitations: Reports: No Limitations - History of Present Illness INITIAL COMMENTS - FREE TEXT/NARRATIVE: The patient is an 86-year-old female with a history of extensive smoking, COPD, lung cancer that was reportedly in remission though a nodule suspicious for recurrence was diagnosed about a month ago, who presents with shortness of breath. The patient is on 3 L nasal cannula at night. This morning she woke up and felt short of breath. She called an ambulance. EMS gave her a nebulizer treatment en route, she states that this helped. She is feeling much better. She 's not really short of breath at this time. She was still in bed this morning when the shortness of breath started. No clear provoking factor. States that she 's not had significant change in her cough. No chest pain. No lower stomach pain or swelling. No fever or recent illness. No abdominal pain or vomiting. She did see her primary doctor yesterday, she's not sure if she's on any new medications. Her is apparently bringing her medications in. - Related Data Allergies Allergy/AdvReac Type Severity Reaction Status Date / Time celecoxib [From Celebrex] Allergy Cannot Verified 02/11/17 08:00 Remember lovastatin [From Mevacor] Allergy Cannot Verified 02/11/17 08:00 Remember Penicillins Allergy Cannot Verified 02/11/17 08:00 Remember prednisone Allergy Cannot Verified 02/11/17 08:00 Remember Home Meds: Home Meds Aspirin [Ecotrin] 81 mg PO DAILY 11/18/16 [History] Levothyroxine 25 mcg PO ACBREAKFAST 11/18/16 [History] Lisinopril 40 mg PO DAILY 11/18/16 [History] Potassium Chloride 20 meq PO BID 11/18/16 [History] Simvastatin [Zocor] 20 mg PO BEDTIME 11/18/16 [History] amLODIPine [Norvasc] 2.5 mg PO DAILY 11/18/16 [History] Albuterol Sulfate 1 inhalation NEB TID PRN 12/07/16 [History] Albuterol Sulfate [Proair Hfa] 1 puff INH BID PRN 12/07/16 [History] Cyanocobalamin/Cobamamide [Vitamin B-12 5,000 Mcg Tab Sl] 0.5 tab PO DAILY 12/07 [History] Fluticasone/Salmeterol [Advair 250-50 Diskus] 1 puff INH BID 12/07/16 [History] Multivit-Min/FA/Lycopene/Lut [Centrum Silver Tablet] 1 tab PO DAILY 12/07/16 [ History] Ondansetron [Zofran] 4 mg PO TID 03/15/17 [History] Oxybutynin 5 mg PO BEDTIME 03/15/17 [History] Past Medical History HEENT History: Reports: Impaired Vision Other HEENT History: wears eyeglasses Cardiovascular History: Reports: High Cholesterol, Hypertension, PVD Respiratory History: Reports: COPD Other Respiratory History: lung cancer Gastrointestinal History: Reports: GERD Genitourinary History: Reports: Urinary Incontinence, UTI, Recurrent Other Genitourinary History: denies urinary incontinence 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: Neurological History: Reports: Seizure Endocrine/Metabolic History: Reports: Hypothyroidism, Osteoporosis Hematologic History: Reports: Anemia, B12 Deficiency Oncologic (Cancer) History: Reports: Lung - Infectious Disease History Infectious Disease History: Reports: Chicken Pox, Measles, Mumps - Past Surgical History HEENT Surgical History: Reports: Cataract Surgery, Tonsillectomy, Other (See Below) GI Surgical History: Reports: Appendectomy, Colonoscopy, EGD Female Surgical History: Reports: Hysterectomy, Salpingo-Oophorectomy Musculoskeletal Surgical History: Reports: Hip Replacement Social & Family History - Family History Family Medical History: Noncontributory - Tobacco Use Smoking Status *Q: Former Smoker Years of Tobacco use: 69 Packs/Tins Daily: 0.2 Used Tobacco, but Quit: Yes Month Tobacco Last Used: 2016 Second Hand Smoke Exposure: No - Caffeine Use Caffeine Use: Reports: None Caffeine Use Comment: couple cups daily - Alcohol Use Days Per Week of Alcohol Use: 7 Number of Drinks Per Day: 1 Total Drinks Per Week: 7 - Recreational Drug Use Recreational Drug Use: No - Living Situation & Occupation Living situation: Reports: , with Significant Other Occupation: Retired ED ROS GENERAL - Review of Systems Review Of Systems: See Below Constitutional: Denies: Fever HEENT: Denies: Rhinitis Respiratory: Reports: Shortness of Breath, Cough Cardiovascular: Denies: Chest Pain Endocrine: Reports: No Symptoms GI/Abdominal: Denies: Abdominal Pain Musculoskeletal: Reports: No Symptoms. Denies: Leg Pain Skin: Reports: No Symptoms Neurological: Reports: No Symptoms Psychiatric: Reports: No Symptoms ED EXAM, GENERAL - Physical Exam Exam: See Below Exam Limited By: No Limitations General Appearance: Alert, WD/WN, No Apparent Distress Eye Exam: Bilateral Eye: Normal Inspection, PERRL Ears: Normal External Exam Nose: Normal Inspection Throat/Mouth: Normal Inspection, Normal Oropharynx, Normal Voice, No Airway Compromise Head: Atraumatic, Normocephalic Neck: Normal Inspection, Supple, Non-Tender, Full Range of Motion Respiratory/Chest: Other (Few scattered rhonchi, mildly prolonged expiration, mild tachypnea with respiratory rate around 20) Cardiovascular: Normal Peripheral Pulses, Regular Rate, Rhythm, No Edema, No Murmur GI/Abdominal: Soft, Non-Tender, No Distention. No: Rebound Back Exam: Normal Inspection Extremities: Normal Inspection, No Pedal Edema Neurological: Alert, Oriented, Normal Cognition, No Motor/Sensory Deficits Psychiatric: Normal Affect, Normal Mood Skin Exam: Warm, Dry, Intact, Normal Color, No Rash Course - Vital Signs Last Recorded V/S: Last Vital Signs Temp 36.8 C 03/15/17 06:19 Pulse 55 L 03/15/17 06:19 Resp 17 03/15/17 06:19 BP 185/67 H 03/15/17 06:19 Pulse Ox 89 L 03/15/17 09:32 - Orders/Labs/Meds Orders: Active Orders 24 hr Category Date Time Status EKG 12 Lead [EKG Documentation Completion] [RC] STAT Care 03/15/17 07:34 Active RT Aerosol Therapy [RC] ASDIRECTED Care 03/15/17 06:42 Active RT Aerosol Therapy [RC] ASDIRECTED Care 03/15/17 07:35 Active RT Aerosol Therapy [RC] ASDIRECTED Care 03/15/17 08:25 Active RT Aerosol Therapy [RC] ASDIRECTED Care 03/15/17 09:19 Active Chest 1V Frontal [CR] Stat Exams 03/15/17 07:00 Taken Labs: Laboratory Tests 03/15/17 03/15/17 03/15/17 Range/Units 06:30 07:05 07:05 WBC 7.98 (3.98-10.04) K/mm3 RBC 3.25 L (3.98-5.22) M/mm3 Hgb 10.5 L (11.2-15.7) gm/L Hct 32.3 L (34.1-44.9) % MCV 99.4 H (79.4-94.8) fl MCH 32.3 H (25.6-32.2) pg MCHC 32.5 (32.2-35.5) g/dl RDW Std Deviation 43.1 (36.4-46.3) fL Plt Count 157 L (182-369) K/mm3 MPV 9.9 (9.4-12.3) fl Neutrophils % (Manual) 82 H (40-60) % Band Neutrophils % 4 (0-10) % Lymphocytes % (Manual) 13 L (20-40) % Atypical Lymphs % 0 % Monocytes % (Manual) 1 L (2-10) % Eosinophils % (Manual) 0 L (0.7-5.8) % Basophils % (Manual) 0 L (0.1-1.2) Platelet Estimate Adequate RBC Morph Comment Normal Puncture Site Rt radial ABG pH 7.44 (7.35-7.45) ABG pCO2 42.4 (35.0-45.0) mmHg ABG pO2 58.0 L (80.0-100.0) mmHg ABG HCO3 28.3 H (22.0-26.0) meq/L ABG O2 Saturation 93.0 L (96.0-97.0) % ABG Base Excess 4.2 H (-2-2.0) Navdeep Test Wnl A-a Gradient 119 mmHg O2 Delivery Device Nasal cannula Oxygen Flow Rate 4.0 FiO2 0.00 L (21.00-100.00) % Sodium 132 L (136-145) mEq/L Potassium 4.1 (3.5-5.1) mEq/L Chloride 94 L (98-107) mEq/L Carbon Dioxide 28 (21-32) mEq/L Anion Gap 14.1 (5-15) BUN 14 (7-18) mg/dL Creatinine 0.9 (0.55-1.02) mg/dL Est Cr Clr Drug Dosing 32.45 mL/min Estimated GFR (MDRD) 59 (>60) mL/min BUN/Creatinine Ratio 15.6 (14-18) Glucose 99 (83-115) mg/dL Calcium 9.5 (8.5-10.1) mg/dL Total Bilirubin 0.4 (0.2-1.0) mg/dL AST 24 (15-37) U/L ALT 16 (14-59) U/L Alkaline Phosphatase 82 (46-116) U/L Troponin I 0.020 (0.00-0.056) ng/mL Total Protein 7.2 (6.4-8.2) g/dl Albumin 3.8 (3.4-5.0) g/dl Globulin 3.4 gm/dL Albumin/Globulin Ratio 1.1 (1-2) Meds: Medications Discontinued Medications Generic Name Dose Route Start Last Admin Trade Name Freq PRN Reason Stop Dose Admin Albuterol/Ipratropium 3 ml 03/15/17 06:41 03/15/17 06:46 Duoneb 3.0-0.5 Mg/3 Ml BANNER 03/15/17 06:42 3 ml ONETIME ONE Administration Albuterol/Ipratropium 3 ml 03/15/17 07:35 03/15/17 07:58 Duoneb 3.0-0.5 Mg/3 Ml BANNER 03/15/17 07:36 3 ml ONETIME ONE Administration Albuterol/Ipratropium 3 ml 03/15/17 08:25 03/15/17 08:33 Duoneb 3.0-0.5 Mg/3 Ml BANNER 03/15/17 08:26 3 ml ONETIME ONE Administration Albuterol/Ipratropium 3 ml 03/15/17 09:19 Duoneb 3.0-0.5 Mg/3 Ml BANNER 03/15/17 09:20 ONETIME ONE Doxycycline Hyclate 100 mg 03/15/17 09:06 03/15/17 09:23 Vibramycin PO 03/15/17 09:07 100 mg ONETIME ONE Administration Methylprednisolone Sodium Succinate 125 mg 03/15/17 07:35 03/15/17 07:54 Solu-Medrol IVPUSH 03/15/17 07:36 125 mg ONETIME ONE Administration - Re-Assessments/Exams Free Text/Narrative Re-Assessment/Exam: 03/15/17 07:44 Chest x-ray shows hyperinflation, normal mediastinum and cardiac silhouette, no infiltrate or pneumothorax. 03/15/17 09:20 Patient became very short of breath when she got up to go to the bathroom. Her oxygen saturations dropped to the low 80s and she became quite tachypneic. Improved when she was at rest on a nasal cannula, but continued to be mildly tachypneic. Repeat nebulizer treatment ordered. She's now had a total of 4 rounds of albuterol and ipratropium and continues to require oxygen and has mild tachypnea. Labs are unremarkable. EKG shows normal sinus rhythm with left axis deviation, no ST or T-wave abnormality. Discussed results with her family. Discussed with Dr. García, who will evaluate the patient for admission. 03/15/17 09:44 Departure - Departure Time of Disposition: 09:21 Disposition: Admitted As Inpatient 66 Clinical Impression: COPD exacerbation, Acute hypoxemic respiratory failure - Discharge Information Referrals: Duncan Romero MD [Primary Care Provider] - Forms: ED Department Discharge - My Orders Last 24 Hours: My Active Orders 03/15/17 06:42 RT Aerosol Therapy [RC] ASDIRECTED 03/15/17 07:34 EKG 12 Lead [EKG Documentation Completion] [RC] STAT 03/15/17 07:35 RT Aerosol Therapy [RC] ASDIRECTED 03/15/17 08:25 RT Aerosol Therapy [RC] ASDIRECTED 03/15/17 09:19 RT Aerosol Therapy [RC] ASDIRECTED - Assessment/Plan Last 24 Hours: My Active Orders 03/15/17 06:42 RT Aerosol Therapy [RC] ASDIRECTED 03/15/17 07:34 EKG 12 Lead [EKG Documentation Completion] [RC] STAT 03/15/17 07:35 RT Aerosol Therapy [RC] ASDIRECTED 03/15/17 08:25 RT Aerosol Therapy [RC] ASDIRECTED 03/15/17 09:19 RT Aerosol Therapy [RC] ASDIRECTED
[2017-03-15] MEDS ORDERED: Doxycycline 100 MG Cap PO ONE (09:06)
[2017-03-15] MEDS ORDERED: Albuterol 0.083% 2.5 MG/3 ML Neb Soln NEB PRN (10:46)
--- NOTE | 2017-03-15 10:47 | PCM.HP ---
H&P History of Present Illness - General Date of Service: 03/15/17 Admit Problem/Dx: Admission Diagnosis/Problem Admission Diagnosis/Problem Chronic obstructive pulmonary disease Source of Information: Patient, Family, Provider History Limitations: Reports: No Limitations - History of Present Illness Initial Comments - Free Text/Narative: 86 year old female, active smoker with history of lung cancer presents with abrupt onset of nocturnal SOB; no known history of CAD/CHF. Baseline O2 needs , 3 l/m via NC at night. She was hypoxic on presentation received several back to back neb treatments without successful improvement of air exchange. Doxycycline po was given in the ED. She has minimal cough without sputum; there is a vague complaint of chest pain without associated symptoms. There has been no N/V; no F/C ; she denies orthopnea, PND, syncopal/presyncopal episode. She is agreeable for admission to [facility] telemetry and is a full code. Onset of Symptoms: Reports: Sudden Duration of Symptoms: Reports: Hour(s):, Getting Worse Location: Reports: Chest, Generalized Quality: Reports: Same as Previous Episode Severity: Moderate Improves with: Reports: Medication Worsens with: Reports: None Associated Symptoms: Reports: Cough, Nausea/Vomiting, Shortness of Breath, Weakness - Related Data Allergies/Adverse Reactions: Allergies Allergy/AdvReac Type Severity Reaction Status Date / Time celecoxib [From Celebrex] Allergy Cannot Verified 02/11/17 08:00 Remember lovastatin [From Mevacor] Allergy Cannot Verified 02/11/17 08:00 Remember Penicillins Allergy Cannot Verified 02/11/17 08:00 Remember prednisone Allergy Cannot Verified 02/11/17 08:00 Remember Home Medications: Home Meds Aspirin [Ecotrin] 81 mg PO DAILY 11/18/16 [History] Levothyroxine 25 mcg PO ACBREAKFAST 11/18/16 [History] Lisinopril 40 mg PO DAILY 11/18/16 [History] Potassium Chloride 20 meq PO BID 11/18/16 [History] Simvastatin [Zocor] 20 mg PO BEDTIME 11/18/16 [History] amLODIPine [Norvasc] 2.5 mg PO DAILY 11/18/16 [History] Albuterol Sulfate 1 inhalation NEB TID PRN 12/07/16 [History] Albuterol Sulfate [Proair Hfa] 1 puff INH BID PRN 12/07/16 [History] Cyanocobalamin/Cobamamide [Vitamin B-12 5,000 Mcg Tab Sl] 0.5 tab PO DAILY 12/07 [History] Fluticasone/Salmeterol [Advair 250-50 Diskus] 1 puff INH BID 12/07/16 [History] Multivit-Min/FA/Lycopene/Lut [Centrum Silver Tablet] 1 tab PO DAILY 12/07/16 [ History] Ondansetron [Zofran] 4 mg PO TID 03/15/17 [History] Oxybutynin 5 mg PO BEDTIME 03/15/17 [History] Past Medical History HEENT History: Reports: Impaired Vision Other HEENT History: wears eyeglasses Cardiovascular History: Reports: High Cholesterol, Hypertension, PVD Respiratory History: Reports: COPD Other Respiratory History: lung cancer Gastrointestinal History: Reports: GERD Genitourinary History: Reports: Urinary Incontinence, UTI, Recurrent Other Genitourinary History: denies urinary 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: Neurological History: Reports: Seizure Endocrine/Metabolic History: Reports: Hypothyroidism, Osteoporosis Hematologic History: Reports: Anemia, B12 Deficiency Oncologic (Cancer) History: Reports: Lung - Infectious Disease History Infectious Disease History: Reports: Chicken Pox, Measles, Mumps - Past Surgical History HEENT Surgical History: Reports: Cataract Surgery, Tonsillectomy, Other (See Below) GI Surgical History: Reports: Appendectomy, Colonoscopy, EGD Female Surgical History: Reports: Hysterectomy, Salpingo-Oophorectomy Musculoskeletal Surgical History: Reports: Hip Replacement Social & Family History - Family History Family Medical History: Noncontributory - Tobacco Use Smoking Status *Q: Former Smoker Years of Tobacco use: 69 Packs/Tins Daily: 0.2 Used Tobacco, but Quit: Yes Month Tobacco Last Used: 2016 Second Hand Smoke Exposure: No - Caffeine Use Caffeine Use: Reports: None Caffeine Use Comment: couple cups daily - Alcohol Use Days Per Week of Alcohol Use: 7 Number of Drinks Per Day: 1 Total Drinks Per Week: 7 - Recreational Drug Use Recreational Drug Use: No - Living Situation & Occupation Living situation: Reports: , with Significant Other Occupation: Retired H&P Review of Systems - Review of Systems: Review Of Systems: See Below General: Reports: Malaise, Weakness HEENT: Reports: No Symptoms Pulmonary: Reports: Shortness of Breath, Pleuritic Chest Pain, Cough Cardiovascular: Reports: No Symptoms Gastrointestinal: Reports: No Symptoms Genitourinary: Reports: No Symptoms Musculoskeletal: Reports: No Symptoms Skin: Reports: No Symptoms Psychiatric: Reports: No Symptoms Neurological: Reports: No Symptoms Hematologic/Lymphatic: Reports: No Symptoms Immunologic: Reports: No Symptoms Exam - Exam Exam: See Below - Vital Signs Vital Signs: Last Vital Signs Temp 36.8 C 03/15/17 06:19 Pulse 55 L 03/15/17 06:19 Resp 17 03/15/17 06:19 BP 185/67 H 03/15/17 06:19 Pulse Ox 90 L 03/15/17 10:06 Weight: 45.813 kg - Exam Quality Assessment: Supplemental Oxygen, DVT Prophylaxis General: Alert, Oriented, Cooperative, Mild Distress HEENT: Conjunctiva Clear, Nares Patent, Normal Nasal Septum, Pupils Equal, Pupils Reactive, PERRLA Neck: Supple, Trachea Midline Lungs: Normal Respiratory Effort, Decreased Breath Sounds, Wheezing Cardiovascular: Regular Rate GI/Abdominal Exam: Normal Bowel Sounds, Soft, Non-Tender, No Organomegaly (Female) Exam: Deferred Rectal (Female) Exam: Deferred Back Exam: Normal Inspection Extremities: Normal Inspection Skin: Warm Neurological: Cranial Nerves Intact Neuro Extensive - Mental Status: Alert, Oriented x3, Normal Mood/Affect, Normal Cognition, Memory Intact Neuro Extensive - Motor, Sensory, Reflexes: CN II-XII Intact Psychiatric: Alert, Normal Affect, Normal Mood - Patient Data Result Diagrams: 03/15/17 07:05 03/15/17 07:05 *Q Meaningful Use (ADM) - VTE *Q VTE Criteria *Q: - Stroke *Q Stroke Criteria *Q: - AMI *Q AMI Criteria *Q: - Problem List (1) COPD exacerbation SNOMED Code(s): 430853551411756 ICD Code: J44.1 - CHRONIC OBSTRUCTIVE PULMONARY DISEASE W (ACUTE) EXACERBATION Status: Acute Current Visit: Yes (2) Bronchitis SNOMED Code(s): 13435515 ICD Code: J40 - BRONCHITIS, NOT SPECIFIED ACUTE OR CHRONIC Status: Acute Current Visit: No (3) Generalized weakness SNOMED Code(s): 53510365 ICD Code: R53.1 - WEAKNESS Status: Acute Priority: High Current Visit: No (4) Hypomagnesemia SNOMED Code(s): 066704467 ICD Code: E83.42 - HYPOMAGNESEMIA Status: Acute Current Visit: No (5) Lung cancer SNOMED Code(s): 585387153 ICD Code: C34.90 - MALIGNANT NEOPLASM OF UNSP PART OF UNSP BRONCHUS OR LUNG Status: Chronic Priority: Medium Current Visit: No Qualifiers: Laterality: unspecified laterality Lung location: unspecified part of lung Qualified Code(s): C34.90 - Malignant neoplasm of unspecified part of unspecified bronchus or lung Problem List Initiated/Reviewed/Updated: Yes Orders Last 24hrs: Active Orders 24 hr Category Date Time Status RT Aerosol Therapy [RC] ASDIRECTED Care 03/15/17 10:46 Ordered Clear Liquid Diet [DIET] Diet 03/15/17 Breakfast Ordered Albuterol [Proventil Neb Soln] Med 03/15/17 10:46 Ordered 2.5 mg NEB Q4HRRT PRN Albuterol/Ipratropium [DuoNeb 3.0-0.5 MG/3 ML] Med 03/15/17 13:00 Ordered 3 ml NEB QID Aspirin [Halfprin] Med 03/16/17 09:00 Ordered 81 mg PO DAILY Fluticasone/Salmeterol Med 03/15/17 21:00 Ordered 1 puff INH BID Levothyroxine Med 03/16/17 06:00 Ordered 25 mcg PO ACBREAKFAST Oxybutynin Med 03/15/17 21:00 Ordered 5 mg PO BEDTIME Simvastatin [Zocor] Med 03/15/17 21:00 Ordered 20 mg PO BEDTIME methylPREDNISolone Sod Succ [Solu-MEDROL] Med 03/15/17 13:00 Ordered 125 mg IVPUSH Q6H Medication Orders Aspirin (Halfprin) 81 mg PO DAILY MEKA Levothyroxine Sodium (Levothyroxine) 25 mcg PO ACBREAKFAST MEKA Non-Formulary Medication (Fluticasone/Salmeterol) 1 puff INH BID MEKA Oxybutynin Chloride (Oxybutynin) 5 mg PO BEDTIME MEKA Simvastatin (Zocor) 20 mg PO BEDTIME MEKA Assessment/Plan Comment:: Impression: Acute exacerbation of COPD Baseline nocturnal O2 use 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 NEB/O2 as needed to keep O2 Sat>90% Zithromax/Rocephin Pulmonary toilet PNA work up Home meds Daily labs PT/OT/SW DVT/GI prophylaxis
[2017-03-15] MEDS: methylPREDNISolone Sodium Succinate 125 MG/2 ML SDV IVPUSH SCH ×2 (13:16→19:29)
[2017-03-15] MEDS: Azithromycin 500 MG in Sodium Chloride 0.9% 250 ML IV SCH (13:58)
[2017-03-15] MEDS: Albuterol/Ipratropium 3.0-0.5 MG/3 ML Neb Soln NEB SCH ×2 (15:38→20:38)
[2017-03-15] MEDS: cefTRIAXone 1 GM in Sodium Chloride 0.9% 100 ML IV SCH (16:55)
[2017-03-15] MEDS: Formoterol/Mometasone 200-5 MCG 8.8 GM Inhaler IH SCH (20:38)
[2017-03-15] MEDS: Simvastatin 20 MG Tab PO SCH (23:25)
[2017-03-15] MEDS: Oxybutynin 5 MG Tab PO SCH (23:25)
[2017-03-15] MEDS: Saccharomyces Boulardii (Probiotic) 250 MG Cap PO SCH (23:26)
[2017-03-16] MEDS: methylPREDNISolone Sodium Succinate 125 MG/2 ML SDV IVPUSH SCH ×3 (02:19→13:42)
[2017-03-16] MEDS: Albuterol/Ipratropium 3.0-0.5 MG/3 ML Neb Soln NEB SCH ×4 (06:16→20:25)
[2017-03-16] MEDS: Formoterol/Mometasone 200-5 MCG 8.8 GM Inhaler IH SCH ×2 (06:16→20:24)
[2017-03-16] MEDS: Levothyroxine 25 MCG Tab PO SCH (06:31)
[2017-03-16] MEDS: Saccharomyces Boulardii (Probiotic) 250 MG Cap PO SCH ×2 (09:38→21:10)
[2017-03-16] MEDS: amLODIPine 2.5 MG Tab PO SCH (09:38)
[2017-03-16] MEDS: Aspirin 81 MG Tab.EC PO SCH (09:41)
[2017-03-16] MEDS: Azithromycin 500 MG in Sodium Chloride 0.9% 250 ML IV SCH (13:42)
[2017-03-16] MEDS ORDERED: Magnesium Sulfate/Water 2 GM in Premix Bag 1 BAG IV ONE (14:13)
--- NOTE | 2017-03-16 14:13 | PCM.PN ---
- General Info Date of Service: 03/16/17 Functional Status: Reports: Pain Controlled, Tolerating Diet, Ambulating, Urinating - Review of Systems General: Reports: Weakness HEENT: Reports: No Symptoms Pulmonary: Reports: Shortness of Breath Cardiovascular: Reports: No Symptoms Gastrointestinal: Reports: No Symptoms Genitourinary: Reports: No Symptoms Musculoskeletal: Reports: No Symptoms Skin: Reports: No Symptoms Neurological: Reports: No Symptoms Psychiatric: Reports: No Symptoms - Patient Data Vitals - Most Recent: Last Vital Signs Temp 36.1 C 03/16/17 12:07 Pulse 73 03/16/17 12:07 Resp 20 03/16/17 12:07 BP 125/94 H 03/16/17 12:07 Pulse Ox 91 L 03/16/17 12:07 Weight - Most Recent: 45.314 kg I&O - Last 24 Hours: Intake & Output 03/15/17 03/16/17 03/16/17 22:59 06:59 14:59 Intake Total 980 800 540 Output Total 700 650 Balance 280 150 540 Lab Results Last 24 Hours: Laboratory Results - last 24 hr 03/15/17 03/16/17 03/16/17 Range/Units 15:55 06:00 06:00 WBC 16.61 H (3.98-10.04) K/mm3 RBC 2.91 L (3.98-5.22) M/mm3 Hgb 9.4 L (11.2-15.7) gm/L Hct 28.6 L (34.1-44.9) % MCV 98.3 H (79.4-94.8) fl MCH 32.3 H (25.6-32.2) pg MCHC 32.9 (32.2-35.5) g/dl RDW Std Deviation 41.8 (36.4-46.3) fL Plt Count 154 L (182-369) K/mm3 MPV 10.4 (9.4-12.3) fl Sodium 133 L (136-145) mEq/L Potassium 3.8 (3.5-5.1) mEq/L Chloride 95 L (98-107) mEq/L Carbon Dioxide 31 (21-32) mEq/L Anion Gap 10.8 (5-15) BUN 13 (7-18) mg/dL Creatinine 0.9 (0.55-1.02) mg/dL Est Cr Clr Drug Dosing 32.10 mL/min Estimated GFR (MDRD) 59 (>60) mL/min BUN/Creatinine Ratio 14.4 (14-18) Glucose 127 H (83-115) mg/dL Calcium 8.6 (8.5-10.1) mg/dL Magnesium 1.5 L (1.8-2.4) mg/dl Troponin I < 0.017 0.017 (0.00-0.056) ng/mL C-Reactive Protein 5.7 H* (<1.0) mg/dL NT-Pro-B Natriuret Pep 529 H (0-450) pg/mL Mycoplasma pneumon IgM Negative (NEGATIVE) Mehrdad Results Last 24 Hours: Microbiology 03/15/17 15:50 Influenza Type A Antigen Screen - Final Nasal, Unspecified NEGATIVE INFLUENZA A VIRUS AG Influenza Type B Antigen Screen - Final NEGATIVE INFLUENZA B VIRUS AG Med Orders - Current: Current Medications Albuterol (Proventil Neb Soln) 2.5 mg NEB Q4HRRT PRN PRN Reason: Shortness of Breath Albuterol/Ipratropium (Duoneb 3.0-0.5 Mg/3 Ml) 3 ml NEB QIDRT [facility] Last Admin: 03/16/17 09:34 Dose: 3 ml Amlodipine Besylate (Norvasc) 2.5 mg PO DAILY [facility] Last Admin: 03/16/17 09:38 Dose: 2.5 mg Aspirin (Halfprin) 81 mg PO DAILY [facility] Last Admin: 03/16/17 09:41 Dose: 81 mg Azithromycin 500 mg/ Sodium (Chloride) 250 mls @ 250 mls/hr IV Q24H [facility] Last Admin: 03/16/17 13:42 Dose: 250 mls/hr Ceftriaxone Sodium 1 gm/ (Sodium Chloride) 100 mls @ 200 mls/hr IV Q24H [facility] Last Admin: 03/15/17 16:55 Dose: 200 mls/hr Levothyroxine Sodium (Levothyroxine) 25 mcg PO ACBREAKFAST [facility] Last Admin: 03/16/17 06:31 Dose: 25 mcg Methylprednisolone Sodium Succinate (Solu-Medrol) 125 mg IVPUSH Q6H [facility] Last Admin: 03/16/17 13:42 Dose: 125 mg Mometasone Furoate/Formoterol Fumar (Dulera 200-5 Mcg) 2 puff IH BIDRT [facility] Last Admin: 03/16/17 06:16 Dose: 2 puff Oxybutynin Chloride (Oxybutynin) 5 mg PO BEDTIME [facility] Last Admin: 03/15/17 23:25 Dose: 5 mg Saccharomyces Boulardii (Florastor) 250 mg PO BID [facility] Last Admin: 03/16/17 09:38 Dose: 250 mg Simvastatin (Zocor) 20 mg PO BEDTIME [facility] Last Admin: 03/15/17 23:25 Dose: 20 mg Discontinued Medications Albuterol/Ipratropium (Duoneb 3.0-0.5 Mg/3 Ml) 3 ml NEB ONETIME ONE Stop: 03/15/17 06:42 Last Admin: 03/15/17 06:46 Dose: 3 ml Albuterol/Ipratropium (Duoneb 3.0-0.5 Mg/3 Ml) 3 ml NEB ONETIME ONE Stop: 03/15/17 07:36 Last Admin: 03/15/17 07:58 Dose: 3 ml Albuterol/Ipratropium (Duoneb 3.0-0.5 Mg/3 Ml) 3 ml NEB ONETIME ONE Stop: 03/15/17 08:26 Last Admin: 03/15/17 08:33 Dose: 3 ml Albuterol/Ipratropium (Duoneb 3.0-0.5 Mg/3 Ml) 3 ml NEB ONETIME ONE Stop: 03/15/17 09:20 Last Admin: 03/15/17 10:06 Dose: 3 ml Doxycycline Hyclate (Vibramycin) 100 mg PO ONETIME ONE Stop: 03/15/17 09:07 Last Admin: 03/15/17 09:23 Dose: 100 mg Methylprednisolone Sodium Succinate (Solu-Medrol) 125 mg IVPUSH ONETIME ONE Stop: 03/15/17 07:36 Last Admin: 03/15/17 07:54 Dose: 125 mg - Exam Quality Assessment: Supplemental Oxygen, DVT Prophylaxis General: Alert, Oriented, Cooperative, No Acute Distress HEENT: Pupils Equal, Pupils Reactive, EOMI Neck: Supple, Trachea Midline, No JVD Lungs: Normal Respiratory Effort Cardiovascular: Regular Rate, Regular Rhythm GI/Abdominal Exam: Normal Bowel Sounds, Soft, Non-Tender, No Organomegaly, No Distention (Female) Exam: Deferred Back Exam: Normal Inspection Extremities: Normal Inspection, Normal Range of Motion, Non-Tender, No Pedal Edema Skin: Warm Neurological: No New Focal Deficit Psy/Mental Status: Alert, Normal Affect, Normal Mood - Problem List & Annotations (1) COPD exacerbation SNOMED Code(s): 276020031477740 Code(s): J44.1 - CHRONIC OBSTRUCTIVE PULMONARY DISEASE W (ACUTE) EXACERBATION Status: Acute Current Visit: Yes (2) Bronchitis SNOMED Code(s): 09396008 Code(s): J40 - BRONCHITIS, NOT SPECIFIED ACUTE OR CHRONIC Status: Acute Current Visit: No (3) Generalized weakness SNOMED Code(s): 48305701 Code(s): R53.1 - WEAKNESS Status: Acute Priority: High Current Visit: No (4) Hypomagnesemia SNOMED Code(s): 718114275 Code(s): E83.42 - HYPOMAGNESEMIA Status: Acute Current Visit: No (5) Lung cancer SNOMED Code(s): 421155992 Code(s): C34.90 - MALIGNANT NEOPLASM OF UNSP PART OF UNSP BRONCHUS OR LUNG Status: Chronic Priority: Medium Current Visit: No Qualifiers: Laterality: unspecified laterality Lung location: unspecified part of lung Qualified Code(s): C34.90 - Malignant neoplasm of unspecified part of unspecified bronchus or lung - Problem List Review Problem List Initiated/Reviewed/Updated: Yes - My Orders Last 24 Hours: My Active Orders 03/15/17 13:30 Azithromycin [Zithromax] 500 mg Sodium Chloride 0.9% [Normal Saline] 250 ml IV Q24H 03/15/17 13:32 Activity as Tolerated [RC] .Routine 03/15/17 15:20 RESPIRATORY PANEL BY PCR [MREF] Routine 03/15/17 16:00 Albuterol/Ipratropium [DuoNeb 3.0-0.5 MG/3 ML] 3 ml NEB QIDRT cefTRIAXone [Rocephin] 1 gm Sodium Chloride 0.9% [Normal Saline] 100 ml IV Q24H 03/15/17 17:10 STREP PNEUMONIAE ANTIGEN [MREF] Routine 03/15/17 17:18 Vital Signs [RC] 03,09,15,21 03/15/17 21:00 Mometasone/Formoterol [Dulera 200-5 MCG] 2 puff IH BIDRT Oxybutynin 5 mg PO BEDTIME Saccharomyces Boulardii [Florastor] 250 mg PO BID Simvastatin [Zocor] 20 mg PO BEDTIME 03/15/17 22:17 Oxygen Therapy [RC] ASDIRECTED 03/16/17 06:00 Levothyroxine 25 mcg PO ACBREAKFAST 03/16/17 09:00 Aspirin [Halfprin] 81 mg PO DAILY amLODIPine [Norvasc] 2.5 mg PO DAILY 03/17/17 05:00 BASIC METABOLIC PANEL,BMP [CHEM] DAILY CBC W/O DIFF,HEMOGRAM [HEME] DAILY CRP [C-REACTIVE PROTEIN] [CHEM] DAILY MAGNESIUM [CHEM] DAILY 03/17/17 07:00 CXR [Chest 2V] [CR] Routine 03/17/17 08:00 Consult to Genetic Engineer [CONS] Routine 03/17/17 10:00 Consult to Occupational Therapy [OT Evaluation and Treatment] [CONS] Routine Consult to Physical Therapy [PT Evaluation and Treatment] [CONS] Routine 03/18/17 05:00 BASIC METABOLIC PANEL,BMP [CHEM] DAILY CBC W/O DIFF,HEMOGRAM [HEME] DAILY CRP [C-REACTIVE PROTEIN] [CHEM] DAILY MAGNESIUM [CHEM] DAILY 03/19/17 05:00 BASIC METABOLIC PANEL,BMP [CHEM] DAILY CBC W/O DIFF,HEMOGRAM [HEME] DAILY CRP [C-REACTIVE PROTEIN] [CHEM] DAILY MAGNESIUM [CHEM] DAILY 03/20/17 05:00 BASIC METABOLIC PANEL,BMP [CHEM] DAILY CBC W/O DIFF,HEMOGRAM [HEME] DAILY CRP [C-REACTIVE PROTEIN] [CHEM] DAILY MAGNESIUM [CHEM] DAILY - Plan Plan:: Impression: Acute exacerbation of COPD Baseline nocturnal O2 use Recent documentation of new lung nodule 1 month [employer] Hypoxia History of Lung CA Chronic HLD HTN UI Recurrent UTI Anemia Hypothyroidism Osteoporosis Plan: 2 D echo 03/17/17. NEB/O2 as needed to keep O2 Sat>90% Zithromax/Rocephin Pulmonary toilet PNA work up Home meds Daily labs PT/OT/SW DVT/GI prophylaxis
[2017-03-16] MEDS: cefTRIAXone 1 GM in Sodium Chloride 0.9% 100 ML IV SCH (15:36)
[2017-03-16] MEDS: Enoxaparin 40 MG/0.4 ML Syringe SUBCUT SCH (15:41)
[2017-03-16] MEDS: Oxybutynin 5 MG Tab PO SCH (21:10)
[2017-03-16] MEDS: Simvastatin 20 MG Tab PO SCH (21:10)
[2017-03-17] MEDS ORDERED: methylPREDNISolone Sodium Succinate 125 MG/2 ML SDV IVPUSH SCH (02:00)
[2017-03-17] MEDS: Albuterol/Ipratropium 3.0-0.5 MG/3 ML Neb Soln NEB SCH ×2 (06:17→09:04)
[2017-03-17] MEDS: Formoterol/Mometasone 200-5 MCG 8.8 GM Inhaler IH SCH (06:17)
[2017-03-17] MEDS: Levothyroxine 25 MCG Tab PO SCH (06:26)
[2017-03-17] MEDS: Enoxaparin 40 MG/0.4 ML Syringe SUBCUT SCH (08:13)
[2017-03-17] MEDS: Saccharomyces Boulardii (Probiotic) 250 MG Cap PO SCH (08:13)
[2017-03-17] MEDS: amLODIPine 2.5 MG Tab PO SCH (08:14)
[2017-03-17] MEDS: Aspirin 81 MG Tab.EC PO SCH (08:14)
--- NOTE | 2017-03-17 10:15 | CR ---
Chest: Two views of the chest were obtained. Comparison: Prior chest x-ray of 03/15/17. Heart size is normal. Mild tortuosity of the thoracic aorta is seen. Atherosclerotic calcification noted within the thoracic aorta. Infusion port seen entering from the left side. Lungs are hyperinflated compatible with emphysematous change. Prior CT study of 02/11/17 showed a spiculated nodule within the right upper lung which is poorly identified on current plain film study. Mild chronic increased lung markings are seen compatible with fibrosis. Compression deformity is seen within the lower thoracic spine which appears old. Impression: 1. Emphysematous change. Other incidental findings. Nothing acute is appreciated. Diagnostic code #3
[2017-03-17] MEDS ORDERED: Lisinopril 20 MG Tab PO SCH (10:45)
--- NOTE | 2017-03-17 10:49 | PCM.DCSUM1 ---
Discharge Summary - Hospital Course Free Text/Narrative:: The patient is an 86-year-old female with a history of extensive smoking, COPD, lung cancer that was reportedly in remission though a nodule suspicious for recurrence was diagnosed about a month ago, who presents to ED with shortness of breath. The patient is on 3 L nasal cannula at night. This morning she woke up and felt short of breath. She called an ambulance. EMS gave her a nebulizer treatment en route, she states that this helped. She is feeling much better. She 's not really short of breath at this time. She was still in bed this morning when the shortness of breath started. No clear provoking factor. States that she 's not had significant change in her cough. No chest pain. No lower stomach pain or swelling. No fever or recent illness. No abdominal pain or vomiting. She did see her primary doctor yesterday, she's not sure if she's on any new medications. Her is apparently bringing her medications in. ED workup is with labs with mild anemia, hgb of 10.5, normal WBC. CMP with mild hyponatremia of 132, normal K+, normal renal function and LFT's. CXR is with hyperinflation. Patient was quite tachypnic with oxygen saturations down into the 80's on 3-4L/NC while in ED. Hospitalist service is consulted for admission for COPD exacerbation. Patient is Full Code status. Course of hospital stay was with treatment with IV zithromax and rocephin initally, repeat CXR was unchanged, rocephin was DC'd. Solumedrol IVP was given Q6hrs then Q12 hrs with good response along with aggressive RT treatment. Mycoplasma screen was negative, flu screen negative. Hgb did drop to 8.9 with microcytosis. B12, folic acid and iron studies obtained on morning of discharge. These will be forwarded to PCP for review, she is also started on daily iron supplement. PT/OT worked with her. She will be discharged on zithromax, supplemental oxygen, ferrous sulfate, she is "allergic" to "prednisone" so defers this on discharge although she tolerates solumedrol very well. She is to have f/up with her PCP, Dr. Duncan Romero in [place] within one week of discharge. - Discharge Data Discharge Date: 03/17/17 (admit date 03/15/17) Discharge Disposition: Home, Self-Care 01 Condition: Fair - Discharge Diagnosis/Problem(s) (1) Acute hypoxemic respiratory failure SNOMED Code(s): 700962248 ICD Code: J96.01 - ACUTE RESPIRATORY FAILURE WITH HYPOXIA Status: Acute Priority: High Current Visit: Yes (2) Acute exacerbation of chronic obstructive pulmonary disease (COPD) SNOMED Code(s): 329081151 ICD Code: J44.1 - CHRONIC OBSTRUCTIVE PULMONARY DISEASE W (ACUTE) EXACERBATION Status: Acute Priority: High Current Visit: Yes (3) Bronchitis SNOMED Code(s): 28956985 ICD Code: J40 - BRONCHITIS, NOT SPECIFIED ACUTE OR CHRONIC Status: Acute Priority: High Current Visit: Yes (4) Generalized weakness SNOMED Code(s): 66627798 ICD Code: R53.1 - WEAKNESS Status: Acute Priority: High Current Visit: Yes (5) Anemia SNOMED Code(s): 564883256 ICD Code: D64.9 - ANEMIA, UNSPECIFIED Status: Chronic Priority: Medium Current Visit: Yes Qualifiers: Anemia type: unspecified type Qualified Code(s): D64.9 - Anemia, unspecified (6) Hyponatremia SNOMED Code(s): 24969032 ICD Code: E87.1 - HYPO-OSMOLALITY AND HYPONATREMIA Status: Resolved Priority: High Current Visit: Yes - Patient Summary/Data Operative Procedure(s) Performed: None Complications: None Consults: Consultations 03/17/17 08:00 Consult to Shaper Operator [CONS] Routine 03/17/17 10:00 Consult to Occupational Therapy [OT Evaluation and Treatment] [CONS] Routine Consult to Physical Therapy [PT Evaluation and Treatment] [CONS] Routine Labs Pending at D/C: Anemia eval with B12, folic acid and iron studies pending. Started Ferrous sulfate QD with recommend recheck of CBC in one week at discharge f/up visit. Recommended Follow-up Testing/Procedures: Recommend stop smoking; quit line can be very helpful and has free services and products; call [phone] Follow up with PCP, Dr. Romero within one week of discharge, recommend recheck of CBC at that time to follow anemia. Planned Operative Procedure(s) after DC: None Hospital Course: As above - Patient Instructions Diet: Heart Healthy Diet Activity: As Tolerated (with Oxygen; NO SMOKING while wearing OXYGEN) Driving: Do Not Drive Showering/Bathing: May Shower Notify Provider of: Fever, Increased Pain, Nausea and/or Vomiting (worsening of shortness of breath, coughing, weakness) - Discharge Plan Prescriptions/Med Rec: Azithromycin [Zithromax] 500 mg PO DAILY #5 tablet Bifidobacter. Bifidum/B.Longum [Florajen Bifidoblend] 460 mg PO DAILY #30 capsule Ferrous Sulfate 325 mg PO DAILY #30 tablet Nicotine [Habitrol] 21 mg TRDERM DAILY #30 patch Home Medications: Home Meds Aspirin [Ecotrin] 81 mg PO DAILY 11/18/16 [History] Levothyroxine 25 mcg PO ACBREAKFAST 11/18/16 [History] Lisinopril 40 mg PO DAILY 11/18/16 [History] Potassium Chloride 20 meq PO BID 11/18/16 [History] Simvastatin [Zocor] 20 mg PO BEDTIME 11/18/16 [History] amLODIPine [Norvasc] 2.5 mg PO DAILY 11/18/16 [History] Albuterol Sulfate 1 inhalation NEB TID PRN 12/07/16 [History] Albuterol Sulfate [Proair Hfa] 1 puff INH BID PRN 12/07/16 [History] Cyanocobalamin/Cobamamide [Vitamin B-12 5,000 Mcg Tab Sl] 0.5 tab PO DAILY 12/07 [History] Fluticasone/Salmeterol [Advair 250-50 Diskus] 1 puff INH BID 12/07/16 [History] Multivit-Min/FA/Lycopene/Lut [Centrum Silver Tablet] 1 tab PO DAILY 12/07/16 [ History] Ondansetron [Zofran] 4 mg PO TID 03/15/17 [History] Oxybutynin 5 mg PO BEDTIME 03/15/17 [History] Azithromycin [Zithromax] 500 mg PO DAILY #5 tablet 03/17/17 [Rx] Bifidobacter. Bifidum/B.Longum [Florajen Bifidoblend] 460 mg PO DAILY #30 capsule 03/17/17 [Rx] Ferrous Sulfate 325 mg PO DAILY #30 tablet 03/17/17 [Rx] Nicotine [Habitrol] 21 mg TRDERM DAILY #30 patch 03/17/17 [Rx] Patient Handouts: Smoking Cessation, Tips for Success, [id number], Shortness of Breath, [id number], Chronic Obstructive Pulmonary Disease, [id number], Oxygen Use at Home Forms: ED Department Discharge Referrals: Duncan Romero MD [Primary Care Provider] - - Discharge Summary/Plan Comment DC Time >30 min.: Yes (40 min) - General Info Date of Service: 03/17/17 Admission Dx/Problem (Free Text: Admission Diagnosis/Problem Admission Diagnosis/Problem Chronic obstructive pulmonary disease Breathing easier today, less SOB. Minimal cough. Strength improved. Appetite ok. Anxious for DC home today. Functional Status: Reports: Pain Controlled, Tolerating Diet, Ambulating, Urinating, Incentive Spirometry. Denies: New Symptoms - Review of Systems General: Reports: No Symptoms, Weakness (improved ), Appetite (good). Denies: Fever, Chills, Night Sweats HEENT: Reports: No Symptoms Pulmonary: Reports: Shortness of Breath (improved) Cardiovascular: Reports: Dyspnea on Exertion (chronic and at baseline). Denies : Chest Pain, Palpitations Gastrointestinal: Reports: No Symptoms. Denies: Abdominal Pain Genitourinary: Reports: No Symptoms Musculoskeletal: Reports: No Symptoms Neurological: Reports: No Symptoms - Patient Data Vitals - Most Recent: Last Vital Signs Temp 98.8 F 03/17/17 07:53 Pulse 73 03/17/17 08:10 Resp 20 03/17/17 07:53 BP 135/53 L 03/17/17 08:14 Pulse Ox 94 L 03/17/17 08:54 Weight - Most Recent: 101 lb 4.8 oz I&O - Last 24 hours: Intake & Output 03/16/17 03/17/17 03/17/17 22:59 06:59 14:59 Intake Total 2710 200 Output Total 1750 200 Balance 960 0 Lab Results - Last 24 hrs: Laboratory Results - last 24 hr 03/17/17 03/17/17 Range/Units 05:38 05:38 WBC 10.47 H (3.98-10.04) K/mm3 RBC 2.76 L (3.98-5.22) M/mm3 Hgb 8.9 L (11.2-15.7) gm/L Hct 27.6 L (34.1-44.9) % MCV 100.0 H (79.4-94.8) fl MCH 32.2 (25.6-32.2) pg MCHC 32.2 (32.2-35.5) g/dl RDW Std Deviation 44.0 (36.4-46.3) fL Plt Count 144 L (182-369) K/mm3 MPV 10.2 (9.4-12.3) fl Sodium 135 L (136-145) mEq/L Potassium 3.6 (3.5-5.1) mEq/L Chloride 97 L (98-107) mEq/L Carbon Dioxide 30 (21-32) mEq/L Anion Gap 11.6 (5-15) BUN 14 (7-18) mg/dL Creatinine 0.9 (0.55-1.02) mg/dL Est Cr Clr Drug Dosing 32.55 mL/min Estimated GFR (MDRD) 59 (>60) mL/min BUN/Creatinine Ratio 15.6 (14-18) Glucose 139 H (83-115) mg/dL Calcium 8.5 (8.5-10.1) mg/dL Magnesium 2.2 (1.8-2.4) mg/dl C-Reactive Protein 2.5 H* (<1.0) mg/dL Med Orders - Current: Current Medications Albuterol (Proventil Neb Soln) 2.5 mg NEB Q4HRRT PRN PRN Reason: Shortness of Breath Albuterol/Ipratropium (Duoneb 3.0-0.5 Mg/3 Ml) 3 ml NEB QIDRT [facility] Last Admin: 03/17/17 09:04 Dose: Not Given Amlodipine Besylate (Norvasc) 2.5 mg PO DAILY [facility] Last Admin: 03/17/17 08:14 Dose: 2.5 mg Aspirin (Halfprin) 81 mg PO DAILY [facility] Last Admin: 03/17/17 08:14 Dose: 81 mg Enoxaparin Sodium (Lovenox) 40 mg SUBCUT DAILY [facility] Last Admin: 03/17/17 08:13 Dose: 40 mg Azithromycin 500 mg/ Sodium (Chloride) 250 mls @ 250 mls/hr IV Q24H [facility] Last Admin: 03/16/17 13:42 Dose: 250 mls/hr Ceftriaxone Sodium 1 gm/ (Sodium Chloride) 100 mls @ 200 mls/hr IV Q24H [facility] Last Admin: 03/16/17 15:36 Dose: 200 mls/hr Levothyroxine Sodium (Levothyroxine) 25 mcg PO ACBREAKFAST [facility] Last Admin: 03/17/17 06:26 Dose: 25 mcg Lisinopril (Prinivil) 40 mg PO DAILY [facility] Methylprednisolone Sodium Succinate (Solu-Medrol) 125 mg IVPUSH Q12H [facility] Last Admin: 03/17/17 01:51 Dose: 125 mg Mometasone Furoate/Formoterol Fumar (Dulera 200-5 Mcg) 2 puff IH BIDRT [facility] Last Admin: 03/17/17 06:17 Dose: 2 puff Non-Formulary Medication (Cyanocobalamin/Cobamamide [Vitamin B-12 5,000 Mcg Tab Sl]) 0.5 tab PO DAILY [facility] Oxybutynin Chloride (Oxybutynin) 5 mg PO BEDTIME [facility] Last Admin: 03/16/17 21:10 Dose: 5 mg Saccharomyces Boulardii (Florastor) 250 mg PO BID [facility] Last Admin: 03/17/17 08:13 Dose: 250 mg Simvastatin (Zocor) 20 mg PO BEDTIME [facility] Last Admin: 03/16/17 21:10 Dose: 20 mg Discontinued Medications Albuterol/Ipratropium (Duoneb 3.0-0.5 Mg/3 Ml) 3 ml NEB ONETIME ONE Stop: 03/15/17 06:42 Last Admin: 03/15/17 06:46 Dose: 3 ml Albuterol/Ipratropium (Duoneb 3.0-0.5 Mg/3 Ml) 3 ml NEB ONETIME ONE Stop: 03/15/17 07:36 Last Admin: 03/15/17 07:58 Dose: 3 ml Albuterol/Ipratropium (Duoneb 3.0-0.5 Mg/3 Ml) 3 ml NEB ONETIME ONE Stop: 03/15/17 08:26 Last Admin: 03/15/17 08:33 Dose: 3 ml Albuterol/Ipratropium (Duoneb 3.0-0.5 Mg/3 Ml) 3 ml NEB ONETIME ONE Stop: 03/15/17 09:20 Last Admin: 03/15/17 10:06 Dose: 3 ml Doxycycline Hyclate (Vibramycin) 100 mg PO ONETIME ONE Stop: 03/15/17 09:07 Last Admin: 03/15/17 09:23 Dose: 100 mg Magnesium Sulfate 2 gm/ Premix 50 mls @ 25 mls/hr IV ONETIME ONE Stop: 03/16/17 16:12 Last Admin: 03/16/17 16:24 Dose: 25 mls/hr Methylprednisolone Sodium Succinate (Solu-Medrol) 125 mg IVPUSH ONETIME ONE Stop: 03/15/17 07:36 Last Admin: 03/15/17 07:54 Dose: 125 mg Methylprednisolone Sodium Succinate (Solu-Medrol) 125 mg IVPUSH Q6H [facility] Last Admin: 03/16/17 13:42 Dose: 125 mg - Exam Quality Assessment: Reports: Supplemental Oxygen, DVT Prophylaxis General: Reports: Alert, Oriented, Cooperative, No Acute Distress HEENT: Reports: Pupils Equal, EOMI, Mucous Membr. Moist/[place] Neck: Reports: Supple Lungs: Reports: Normal Respiratory Effort, Decreased Breath Sounds (throughout) Cardiovascular: Reports: Regular Rate, Regular Rhythm GI/Abdominal Exam: Normal Bowel Sounds, Soft, Non-Tender (Female) Exam: Deferred Rectal (Female) Exam: Deferred Extremities: Normal Inspection, No Pedal Edema, Normal Capillary Refill, Other ( thin/cachectic) Neurological: Reports: No New Focal Deficit Psy/Mental Status: Reports: Alert, Normal Affect, Normal Mood *Q Meaningful Use (DIS) - VTE *Q VTE Criteria *Q: - Stroke *Q Stroke Criteria *Q: - AMI *Q AMI Criteria *Q:
[2017-03-17 11:38] VITALS: BP 113/73
--- NOTE | 2017-03-17 16:00 | CR ---
Chest: Portable view of the chest was obtained. Comparison: Prior chest x-ray of 02/11/17. Left-sided infusion port is seen. Slight scarring is noted within the right upper lung. Lungs otherwise are clear. Bony structures are osteopenic. Scoliosis is present. Impression: 1. Incidental findings. Nothing acute is appreciated. Diagnostic code #2
[2017-03-18] MEDS ORDERED: CYANOCOBALAMIN PO SCH (09:00)
[2017-03-18] MEDS ORDERED: COBAMAMIDE PO SCH (09:00)
--- NOTE | 2017-03-18 12:30 | PCM.SN ---
- Free Text/Narrative Note: Lab called with report of + strep pneumo antigen in urine. Patient was discharged yesterday. She rec'd 2 doses of IV rocephin and 2 doses of IV zithromax during hospital stay and was dc'd on zithromax. S. Pneumo is variably susceptable to zithromax. Will cont with zithromax and notify PCP in case she worsens that strep pneumo was positive.
== END 2017-03-17 13:34 | disposition home or self-care (01) | DRG 190 ==
LOC: JD.ED 06:11 → JD.MS 10:05
PROVIDERS: ADMIT Internal Medicine Cardiovascular Disease; ATTEND Internal Medicine Cardiovascular Disease
DX: J44.1 Chronic obstructive pulmonary disease with (acute) exacerbation (principal); J96.01 Acute respiratory failure with hypoxia; E87.1 Hypo-osmolality and hyponatremia; J40 Bronchitis, not specified as acute or chronic; E78.00 Pure hypercholesterolemia, unspecified; I73.9 Peripheral vascular disease, unspecified; K21.9 Gastro-esophageal reflux disease without esophagitis; R53.1 Weakness; E83.42 Hypomagnesemia; E53.8 Deficiency of other specified B group vitamins; R09.02 Hypoxemia; E78.5 Hyperlipidemia, unspecified; I10 Essential (primary) hypertension; E03.9 Hypothyroidism, unspecified; D64.9 Anemia, unspecified; M81.0 Age-related osteoporosis without current pathological fracture; R32 Unspecified urinary incontinence; B95.3 Streptococcus pneumoniae as the cause of diseases classified elsewhere; Z87.891 Personal history of nicotine dependence; Z85.118 Personal history of other malignant neoplasm of bronchus and lung; R91.1 Solitary pulmonary nodule; Z79.82 Long term (current) use of aspirin; Z99.81 Dependence on supplemental oxygen; Z79.899 Other long term (current) drug therapy; Z88.0 Allergy status to penicillin; Z88.8 Allergy status to other drugs, medicaments and biological substances
CPT/HCPCS: 36415; 36600; 71010; 80053; 82803; 84484; 85025; 93005; 94640 ×3; 96374; 99285; A9270; J2930; 71020; 71020-26; 80048; 82607; 82746; 83540; 83735; 83880; 84466; 85027; 86140; 86738; 87486; 87581; 87633; 87798; 87804; 87899; 94664; 94760; 94761; 97161-GP; 97165-GO; J0456; J0696; J1650; J3475; J7030; J7050

== ENCOUNTER 2017-03-19 17:40 | Emergency (ER) | payer MEDICARE, BC ==
[2017-03-19 17:59] VITALS: BP 179/67
[2017-03-19] MEDS ORDERED: Sodium Chloride 0.9% 10 ML Syringe FLUSH PRN (18:07)
[2017-03-19] MEDS ORDERED: Diltiazem 25 MG/5 ML SDV IVPUSH ONE (18:09)
[2017-03-19] MEDS ORDERED: Diltiazem 125 MG in Sodium Chloride 0.9% 100 ML IV SCH (18:15)
[2017-03-19] MEDS ORDERED: Sodium Chloride 0.9% 1,000 ML IV SCH (18:15)
--- NOTE | 2017-03-19 20:06 | EDM.PDOC ---
ED HPI GENERAL MEDICAL PROBLEM - General Chief Complaint: Respiratory Problem Stated Complaint: [facility] Time Seen by Provider: 03/19/17 18:04 Source of Information: Reports: Patient, EMS History Limitations: Reports: No Limitations - History of Present Illness INITIAL COMMENTS - FREE TEXT/NARRATIVE: The patient presents with shortness of breath and rapid heart rate. She is in a -fib with a RVR. She has no history of this. She was recently released from our hospital. She had COPD exacerbation and pneumonia. She said the symptoms started last night. She has a history of lung cancer stage II post chemo and radiation in remission. She had a CT angio on the and it showed no PE but she had a 1.1cm nodule showing spiculation within the right upper lung whish is highly suspicious neoplastic nodule. She has no chest pain. She still has a cough. She has no abdominal pain, nausea or vomiting. Onset: Sudden Duration: Hour(s): Severity: Moderate Improves with: Reports: None Worsens with: Reports: None Associated Symptoms: Reports: Cough, Shortness of Breath. Denies: Chest Pain, Fever/Chills Treatments NATUROPATHIC ONCOLOGY PROVIDER: Reports: Breathing Treatments, IV/IO, Oxygen - Related Data Allergies Allergy/AdvReac Type Severity Reaction Status Date / Time celecoxib [From Celebrex] Allergy Cannot Verified 03/19/17 19:31 Remember lovastatin [From Mevacor] Allergy Cannot Verified 03/19/17 19:31 Remember Penicillins Allergy Cannot Verified 03/19/17 19:31 Remember prednisone Allergy Cannot Verified 03/19/17 19:31 Remember Home Meds: Home Meds Aspirin [Ecotrin] 81 mg PO DAILY 11/18/16 [History] Levothyroxine 25 mcg PO ACBREAKFAST 11/18/16 [History] Lisinopril 40 mg PO DAILY 11/18/16 [History] Potassium Chloride 20 meq PO BID 11/18/16 [History] Simvastatin [Zocor] 20 mg PO BEDTIME 11/18/16 [History] amLODIPine [Norvasc] 2.5 mg PO DAILY 11/18/16 [History] Albuterol Sulfate 1 inhalation NEB TID PRN 12/07/16 [History] Albuterol Sulfate [Proair Hfa] 1 puff INH BID PRN 12/07/16 [History] Cyanocobalamin/Cobamamide [Vitamin B-12 5,000 Mcg Tab Sl] 0.5 tab PO DAILY 12/07 [History] Fluticasone/Salmeterol [Advair 250-50 Diskus] 1 puff INH BID 12/07/16 [History] Multivit-Min/FA/Lycopene/Lut [Centrum Silver Tablet] 1 tab PO DAILY 12/07/16 [ History] Ondansetron [Zofran] 4 mg PO TID 03/15/17 [History] Bifidobacter. Bifidum/B.Longum [Florajen Bifidoblend] 460 mg PO DAILY #30 capsule 03/17/17 [Rx] Ferrous Sulfate 325 mg PO DAILY #30 tablet 03/17/17 [Rx] Past Medical History HEENT History: Reports: Impaired Vision Other HEENT History: wears eyeglasses Cardiovascular History: Reports: High Cholesterol, Hypertension, PVD Respiratory History: Reports: COPD Other Respiratory History: lung cancer Gastrointestinal History: Reports: GERD Genitourinary History: Reports: Urinary Incontinence, UTI, Recurrent Other Genitourinary History: denies urinary incontinence [employer] History: Reports: Neurological History: Reports: Seizure Other Neuro History: had seizures in teenager years Endocrine/Metabolic History: Reports: Hypothyroidism, Osteoporosis Hematologic History: Reports: Anemia, B12 Deficiency Oncologic (Cancer) History: Reports: Lung - Infectious Disease History Infectious Disease History: Reports: Chicken Pox, Measles, Mumps - Past Surgical History HEENT Surgical History: Reports: Cataract Surgery, Tonsillectomy, Other (See Below) GI Surgical History: Reports: Appendectomy, Colonoscopy, EGD Female Surgical History: Reports: Hysterectomy, Salpingo-Oophorectomy Musculoskeletal Surgical History: Reports: Hip Replacement Social & Family History - Family History Family Medical History: Noncontributory - Tobacco Use Smoking Status *Q: Unknown Ever Smoked Years of Tobacco use: 69 Packs/Tins Daily: 0.2 Used Tobacco, but Quit: Yes Month Tobacco Last Used: 2016 Second Hand Smoke Exposure: No - Caffeine Use Caffeine Use: Reports: None Caffeine Use Comment: couple cups daily - Alcohol Use Days Per Week of Alcohol Use: 7 Number of Drinks Per Day: 1 Total Drinks Per Week: 7 - Recreational Drug Use Recreational Drug Use: No - Living Situation & Occupation Living situation: Reports: , with Significant Other Occupation: Retired ED ROS GENERAL - Review of Systems Review Of Systems: See Below Constitutional: Reports: No Symptoms HEENT: Reports: No Symptoms Respiratory: Reports: Shortness of Breath, Cough Cardiovascular: Reports: Palpitations. Denies: Chest Pain Endocrine: Reports: No Symptoms GI/Abdominal: Reports: No Symptoms : Reports: No Symptoms Musculoskeletal: Reports: No Symptoms ED EXAM, GENERAL - Physical Exam Exam: See Below Exam Limited By: No Limitations General Appearance: Alert, No Apparent Distress Ears: Normal External Exam Nose: Normal Inspection Throat/Mouth: Normal Inspection Head: Atraumatic, Normocephalic Neck: Normal Inspection Respiratory/Chest: No Respiratory Distress, Decreased Breath Sounds Cardiovascular: Tachycardia, Irregularly Irregular GI/Abdominal: Soft, Non-Tender, No Organomegaly, No Mass Back Exam: Normal Inspection Extremities: Normal Inspection EKG INTERPRETATION EKG Date: 03/19/17 Time: 18:37 Rhythm: A-Fib Rate (Beats/Min): 85 [place]: LAD-Left [place] Deviation QRS: Normal ST-T: Normal QT: Normal EKG Interpretation Comments: Q waves in the inferior leads Course - Vital Signs Last Recorded V/S: Last Vital Signs Temp 97.4 F 03/19/17 17:54 Pulse 145 H 03/19/17 17:54 Resp 23 H 03/19/17 17:54 BP 179/67 H 03/19/17 17:54 Pulse Ox 98 03/19/17 17:54 - Orders/Labs/Meds Orders: Active Orders 24 hr Category Date Time Status Cardiac Monitoring [RC] . DIRECTED Care 03/19/17 18:07 Active EKG Documentation Completion [RC] STAT Care 03/19/17 18:08 Active Oxygen Therapy [RC] PRN Care 03/19/17 18:07 Active Peripheral IV Care [RC] . DIRECTED Care 03/19/17 18:08 Active Chest 1V Frontal [CR] Stat Exams 03/19/17 18:08 Taken CULTURE BLOOD [BC] Stat Lab 03/19/17 19:37 Received MAGNESIUM [CHEM] Stat Lab 03/19/17 21:08 Ordered UA W/MICROSCOPIC [URIN] Stat Lab 03/19/17 18:40 Ordered Diltiazem 125 mg Med 03/19/17 18:15 Active Sodium Chloride 0.9% [Normal Saline] 100 ml IV TITRATE Sodium Chloride 0.9% [Normal Saline] 1,000 ml Med 03/19/17 18:15 Active IV ASDIRECTED Sodium Chloride 0.9% [Saline Flush] Med 03/19/17 18:07 Active 10 ml FLUSH ASDIRECTED PRN Blood Culture x2 Reflex Set [OM.PC] Stat Ot 03/19/17 18:09 Ordered Peripheral IV Insertion Adult [OM.PC] Stat Oth 03/19/17 18:07 Ordered Medication Orders Diltiazem HCl 125 mg/ Sodium (Chloride) 125 mls @ 10 mls/hr IV TITRATE MEKA; 10 MG/HR PRN Reason: Protocol Last Admin: 03/19/17 18:37 Dose: 10 mg/hr, 10 mls/hr Sodium Chloride (Normal Saline) 1,000 mls @ 125 mls/hr IV ASDIRECTED MEKA Last Admin: 03/19/17 18:27 Dose: 125 mls/hr Sodium Chloride (Saline Flush) 10 ml FLUSH ASDIRECTED PRN PRN Reason: Keep Vein Open Last Admin: 03/19/17 18:27 Dose: 10 ml Labs: Laboratory Tests 03/19/17 03/19/17 03/19/17 Range/Units 19:37 19:37 19:37 WBC 7.20 (3.98-10.04) K/mm3 RBC 3.34 L (3.98-5.22) M/mm3 Hgb 10.6 L (11.2-15.7) gm/L Hct 32.9 L (34.1-44.9) % MCV 98.5 H (79.4-94.8) fl MCH 31.7 (25.6-32.2) pg MCHC 32.2 (32.2-35.5) g/dl RDW Std Deviation 41.8 (36.4-46.3) fL Plt Count 154 L (182-369) K/mm3 MPV 9.9 (9.4-12.3) fl Neut % (Auto) 81.6 H (34.0-71.1) % Lymph % (Auto) 9.3 L (19.3-51.7) % [place] % (Auto) 8.1 (4.7-12.5) % Eos % (Auto) 0.6 L (0.7-5.8) Baso % (Auto) 0.0 L (0.1-1.2) % Neut # (Auto) 5.88 (1.56-6.13) K/mm3 Lymph # (Auto) 0.67 L (1.18-3.74) K/mm3 [place] # (Auto) 0.58 H (0.24-0.36) K/mm3 Eos # (Auto) 0.04 (0.04-0.36) K/mm3 Baso # (Auto) 0.00 L (0.01-0.08) K/mm3 Manual Slide Review Abnormal smear D-Dimer, Quantitative 1.72 H (0.19-0.59) mg/L Sodium 133 L (136-145) mEq/L Potassium 3.2 L (3.5-5.1) mEq/L Chloride 95 L (98-107) mEq/L Carbon Dioxide 29 (21-32) mEq/L Anion Gap 12.2 (5-15) BUN 13 (7-18) mg/dL Creatinine 0.8 (0.55-1.02) mg/dL Est Cr Clr Drug Dosing 36.26 mL/min Estimated GFR (MDRD) > 60 (>60) mL/min BUN/Creatinine Ratio 16.3 (14-18) Glucose 105 (83-115) mg/dL Lactic Acid (0.4-2.0) mmol/L Calcium 9.0 (8.5-10.1) mg/dL Total Bilirubin 0.4 (0.2-1.0) mg/dL AST 22 (15-37) U/L ALT 20 (14-59) U/L Alkaline Phosphatase 73 (46-116) U/L Troponin I < 0.017 (0.00-0.056) ng/mL C-Reactive Protein < 0.2 (<1.0) mg/dL Total Protein 6.6 (6.4-8.2) g/dl Albumin 3.3 L (3.4-5.0) g/dl Globulin 3.3 gm/dL Albumin/Globulin Ratio 1.0 (1-2) TSH 3rd Generation (0.358-3.74) uIU/mL 03/19/17 03/19/17 Range/Units 19:37 19:37 WBC (3.98-10.04) K/mm3 RBC (3.98-5.22) M/mm3 Hgb (11.2-15.7) gm/L Hct (34.1-44.9) % MCV (79.4-94.8) fl MCH (25.6-32.2) pg MCHC (32.2-35.5) g/dl RDW Std Deviation (36.4-46.3) fL Plt Count (182-369) K/mm3 MPV (9.4-12.3) fl Neut % (Auto) (34.0-71.1) % Lymph % (Auto) (19.3-51.7) % [place] % (Auto) (4.7-12.5) % Eos % (Auto) (0.7-5.8) Baso % (Auto) (0.1-1.2) % Neut # (Auto) (1.56-6.13) K/mm3 Lymph # (Auto) (1.18-3.74) K/mm3 [place] # (Auto) (0.24-0.36) K/mm3 Eos # (Auto) (0.04-0.36) K/mm3 Baso # (Auto) (0.01-0.08) K/mm3 Manual Slide Review D-Dimer, Quantitative (0.19-0.59) mg/L Sodium (136-145) mEq/L Potassium (3.5-5.1) mEq/L Chloride (98-107) mEq/L Carbon Dioxide (21-32) mEq/L Anion Gap (5-15) BUN (7-18) mg/dL Creatinine (0.55-1.02) mg/dL Est Cr Clr Drug Dosing mL/min Estimated GFR (MDRD) (>60) mL/min BUN/Creatinine Ratio (14-18) Glucose (83-115) mg/dL Lactic Acid 1.1 (0.4-2.0) mmol/L Calcium (8.5-10.1) mg/dL Total Bilirubin (0.2-1.0) mg/dL AST (15-37) U/L ALT (14-59) U/L Alkaline Phosphatase (46-116) U/L Troponin I (0.00-0.056) ng/mL C-Reactive Protein (<1.0) mg/dL Total Protein (6.4-8.2) g/dl Albumin (3.4-5.0) g/dl Globulin gm/dL Albumin/Globulin Ratio (1-2) TSH 3rd Generation 3.752 H (0.358-3.74) uIU/mL Meds: Medications Generic Name Dose Route Start Last Admin Trade Name Freq PRN Reason Stop Dose Admin Diltiazem HCl 125 mg/ Sodium 125 mls @ 10 mls/hr 03/19/17 18:15 03/19/17 18: 37 Chloride IV 10 mg/hr TITRATE MEKA 10 mls/hr Protocol Administration 10 MG/HR Sodium Chloride 1,000 mls @ 125 mls/hr 03/19/17 18:15 03/19/17 18:27 Normal Saline IV 125 mls/hr ASDIRECTED MEKA Administration Sodium Chloride 10 ml 03/19/17 18:07 03/19/17 18:27 Saline Flush FLUSH 10 ml ASDIRECTED PRN Administration Keep Vein Open Discontinued Medications Generic Name Dose Route Start Last Admin Trade Name Freq PRN Reason Stop Dose Admin Diltiazem HCl 10 mg 03/19/17 18:09 03/19/17 18:26 Diltiazem IVPUSH 03/19/17 18:10 10 mg ONETIME ONE Administration - Re-Assessments/Exams Free Text/Narrative Re-Assessment/Exam: 03/19/17 20:15 The patient is in new onset A-fib with RVR. I ordered an IV saline lock, labs, EKG, and CXR. I also ordered a cardizem bolus of 10mg IV and a drip at 10mL/ hr. The EKG was taken after the bolus and drip and she slowed down into the 80s. She was as high as the 160s at times. She still denies chest pain. Her CXR shows no infiltrate. 03/19/17 20:18 Her WBC was normal. Her Hgb was low at 10.6. Her platelets were 154 and a little low. Her K was low at 3.2. Her Na is low at 133. Her troponin is negative. I feel she needs to be admitted. She is on a cardizem drip and we have no ICU beds. I will need to call Mike and have her transferred. 03/19/17 20:51 Her TSH was slightly elevated at 3.752. 03/19/17 20:52 03/19/17 21:[address] Tolbert and he agreed to the transfer. He wanted a megnesium. I have added that. Departure - Departure Time of Disposition: 21:15 Disposition: DC/Tfer to Acute Hospital 02 Condition: Fair Clinical Impression: Lung cancer Qualifiers: Laterality: unspecified laterality Lung location: unspecified part of lung Qualified Code(s): C34.90 - Malignant neoplasm of unspecified part of unspecified bronchus or lung Atrial fibrillation Qualifiers: Atrial fibrillation type: persistent Qualified Code(s): I48.1 - Persistent atrial fibrillation COPD (chronic obstructive pulmonary disease) Qualifiers: COPD type: COPD with acute exacerbation Qualified Code(s): J44.1 - Chronic obstructive pulmonary disease with (acute) exacerbation - Discharge Information Referrals: Duncan Romero MD [Primary Care Provider] - Forms: ED Department Discharge - My Orders Last 24 Hours: My Active Orders 03/19/17 18:07 Cardiac Monitoring [RC] . DIRECTED Oxygen Therapy [RC] PRN Sodium Chloride 0.9% [Saline Flush] 10 ml FLUSH ASDIRECTED PRN Peripheral IV Insertion Adult [OM.PC] Stat 03/19/17 18:08 EKG Documentation Completion [RC] STAT Peripheral IV Care [RC] . DIRECTED Chest 1V Frontal [CR] Stat 03/19/17 18:09 Blood Culture x2 Reflex Set [OM.PC] Stat 03/19/17 18:15 Diltiazem 125 mg Sodium Chloride 0.9% [Normal Saline] 100 ml IV TITRATE Sodium Chloride 0.9% [Normal Saline] 1,000 ml IV ASDIRECTED 03/19/17 18:40 UA W/MICROSCOPIC [URIN] Stat 03/19/17 19:37 CULTURE BLOOD [BC] Stat 03/19/17 21:08 MAGNESIUM [CHEM] Stat - Assessment/Plan Last 24 Hours: My Active Orders 03/19/17 18:07 Cardiac Monitoring [RC] . DIRECTED Oxygen Therapy [RC] PRN Sodium Chloride 0.9% [Saline Flush] 10 ml FLUSH ASDIRECTED PRN Peripheral IV Insertion Adult [OM.PC] Stat 03/19/17 18:08 EKG Documentation Completion [RC] STAT Peripheral IV Care [RC] . DIRECTED Chest 1V Frontal [CR] Stat 03/19/17 18:09 Blood Culture x2 Reflex Set [OM.PC] Stat 03/19/17 18:15 Diltiazem 125 mg Sodium Chloride 0.9% [Normal Saline] 100 ml IV TITRATE Sodium Chloride 0.9% [Normal Saline] 1,000 ml IV ASDIRECTED 03/19/17 18:40 UA W/MICROSCOPIC [URIN] Stat 03/19/17 19:37 CULTURE BLOOD [BC] Stat 03/19/17 21:08 MAGNESIUM [CHEM] Stat
--- NOTE | 2017-03-20 08:06 | CR ---
Chest: Portable view of the chest was obtained. Comparison: Prior chest x-ray of 03/17/17. Heart size appears within normal limits. Mild tortuosity of the thoracic aorta is seen. Infusion catheter remains stable entering from the left side. Lung markings are mildly increased which appear to be chronic and stable from prior exam. Lungs are hyperinflated compatible with an element of emphysematous change. Mild scoliosis is present within the spine. Bony structures are osteopenic. Impression: 1. Emphysematous change. 2. Nothing acute is appreciated. No significant change is identified from prior study. Diagnostic code #2
== END 2017-03-19 21:50 ==
LOC: JD.ED 17:40
DX: I48.1 Persistent atrial fibrillation (principal); J44.1 Chronic obstructive pulmonary disease with (acute) exacerbation; C34.90 Malignant neoplasm of unspecified part of unspecified bronchus or lung; E78.00 Pure hypercholesterolemia, unspecified; I10 Essential (primary) hypertension; Z88.0 Allergy status to penicillin; Z88.8 Allergy status to other drugs, medicaments and biological substances; Z79.82 Long term (current) use of aspirin; Z79.899 Other long term (current) drug therapy
CPT/HCPCS: 36415; 71010; 80053; 83605; 83735; 84443; 84484; 85025; 85379; 86140; 87040; 93005; 96365; 96366; 96376; 99285; J3490; J7030; J7040; J7050; 93010